=== PATIENT | male | born 1940 | race Caucasian/White ===

== ENCOUNTER 2019-08-10 13:28 | Emergency (ER) | payer MEDICARE, SELFPAY ==
[2019-08-10] VITALS (8 sets, daily range): BP systolic 119–146; BP diastolic 64–83; PULSE 75–99; RESP 16–19; TEMP 36.5; O2SAT 96–99; BMI 24.2
--- NOTE | 2019-08-10 13:43 | CT_ITS ---
WS: [id number] CT HEAD TECHNIQUE: Noncontrast CT of the head obtained from the skullbase to the vertex. CLINICAL INFORMATION: injury COMPARISON: None. DLP: 735.[address] scans at [facility] use at least one of these dose optimization techniques: automat ed exposure control; mA and/or kV adjustment per patient size (includes targeted exams where dose is matched to clinical indication); or iterative reconstruction. FINDINGS: No evidence of intracranial hemorrhage or mass effect. Ventricular system and basal cisterns are [place] nt. Moderate small vessel changes with moderate parenchymal volume loss. No extra-axial fluid collect ions. No evidence of mass or mass effect. Normal gaytan-white differentiation. Paranasal sinuses and mastoid air cells are well aerated. .Normal visualized soft tissues. Notified Cody Graves MD at 08/10/2019 3:[address]/CT head wo con* [id number] IMPRESSION: 1. No evidence of intracranial hemorrhage or mass effect. 2. Mild small vessel changes. Moderate parenchymal volume loss. 3. No acute intracranial findings.
--- NOTE | 2019-08-10 13:43 | CT_ITS ---
WS: [id number] CT CERVICAL TRAUMA TECHNIQUE: Noncontrast CT of the cervical spine with coronal and sagittal reformatted images. CLINICAL INFORMATION: fall COMPARISON: None. DLP: 504.[address] scans at [facility] use at least one of these dose optimization techniques: automat ed exposure control; mA and/or kV adjustment per patient size (includes targeted exams where dose is matched to clinical indication); or iterative reconstruction. FINDINGS: Moderate spondylitic changes. Bony fusion at C5-6 anterior hypertrophic changes. Prominent anterior h ypertrophic changes at C6-7. Straightening of the normal cervical lordosis. Normal craniocervical junction. Normal C1-C2 articulat ion. Dens is normal in appearance. Normal occipital condyles. No high-grade spinal canal narrowing. N ormal C1 ring. No evidence of acute fracture or dislocation. Normal prevertebral soft tissues. Mastoids air cells are well aerated. CT/CT cervical spin wo con* [id number] IMPRESSION: No evidence of acute fracture or dislocation.
--- NOTE | 2019-08-10 13:43 | XR_ITS ---
WS: [id number] CHEST XRAY TECHNIQUE: Portable chest. CLINICAL INFORMATION: injury COMPARISON: July 26, 2018 FINDINGS: Heart: Normal cardiac silhouette. Lungs: Lungs are clear. No consolidation or pleural effusion. Chronic emphysematous changes. Bones: Normal visualized bony structures. XR/XR chest 1V portable [id number] IMPRESSION: No acute chest findings
--- NOTE | 2019-08-10 13:44 | ECG_ITS ---
Measurements Intervals [place] Rate: 82 P: 44 OK: 161 QRS: -29 QRSD: 99 T: 67 QT: 368 QTc: 431 SINUS RHYTHM BORDERLINE LEFT AXIS DEVIATION [QRS AXIS < -20] Compared to ECG 07/26/2018 18:13:10 Sinus bradycardia no longer present Electronically Signed On 08-11-2019 6:43:32 CDT by Octaviano Sheffield M.D. [email or web address]
--- NOTE | 2019-08-10 13:44 | ED_ITS ---
HPI - Fall General: Chief Complaint: Fall Stated Complaint: fall, does not remember fall, sent by dr florian Time Seen by Provider: 08/10/19 13:40 Source: patient Mode of arrival: ambulatory Limitations: no limitations History of Present Illness: HPI Narrative: 79-year-old male who states that he fell this morning but does not remember exactly what happened and does remember falling. He states he woke up on the ground has had some pain in his head and neck since the event. He states that he is has some soreness all over. He states he has no idea what happens but he is had no chest pain since the event. He states he had no lightheadedness. Patient sent over here by his PCP. complaint: fall Associated symptoms-after fall: Reports headache(s); Denies abdominal pain, chest pain or neck pain Review of Systems Const: Denies: fever, chills, body aches or change in appetite Eyes: Denies: blurry vision or eye discomfort ENMT: Denies: throat pain or dental pain Card: Denies: chest pain Resp: Denies: shortness of breath GI: Denies: abdominal pain, nausea, vomiting or diarrhea : Denies: painful urination Musc: Denies: neck pain or back pain Skin/Breast: Denies: rash Neuro: Reports: headache Psych: Denies: depression Cipriano/Lymph: Denies: easy bruising All/Imm: Denies: hives PFSH ED PFSH: Social History Smoking and tobacco status: never smoked Physical Exam Const: COMMON NORMALS: no apparent distress, oriented x3 and healthy appearing HENMT: COMMON NORMALS: normocephalic and head/scalp atraumatic HEAD & SCALP: normocephalic and atraumatic Eye: COMMON NORMALS: PERRL and EOMs intact bilaterally PUPIL: Yes PERRL Neck/C-Spine: COMMON NORMALS: full ROM and supple Chest: COMMONS NORMALS: inspection of chest normal and palpation of chest normal Resp: COMMON NORMALS: normal respiratory effort, no retractions, no use of accessory muscles and clear to auscultation bilaterally AUSCULTATION: clear to auscultation bilaterally Cardio: COMMON NORMALS: regular rate, regular rhythm and no murmurs RATE: regular rate RHYTHM: regular rhythm GI: COMMON NORMALS: normal to inspection, nondistended, normoactive bowel sounds, soft to palpation, non-tender and no masses PALPATION: Yes soft Extremity: COMMON NORMALS: normal to inspection and full ROM Neuro: COMMON NORMALS: oriented x3, moves all extremities and no focal motor deficits Psych: COMMON NORMALS: mental status grossly normal, thought process normal and cooperative THOUGHT PROCESS: normal thought process Skin: COMMON NORMALS: no rashes or lesions noted and no wounds GENERAL SKIN EXAM: no rashes or lesions noted Course Vital Signs: Vital signs: Vital Signs Temperature 97.7 F 08/10/19 13:43 Pulse Rate 87 08/10/19 17:30 Respiratory Rate 18 08/10/19 17:30 Blood Pressure 134/71 08/10/19 17:30 Pulse Oximetry 99 08/10/19 17:30 MDM - Fall MDM Narrative: Medical decision making narrative: Patient presents here with fall. Patient here has no signs of injuries and CT head and x-ray are negative. Patient does have hyperglycemia that is improved here after insulin. Patient is requesting discharge I feel he is stable for discharge. Patient's vital signs here been normal. He is stable for discharge and is to follow-up with his primary care doctor and 2 to 4 days and return if worsening. Lab Data: Labs: Lab Results 08/10/19 08/10/19 08/10/19 Range/Units 15:00 15:25 15:25 WBC 5.8 (4.0-10.0) 10^3/ uL RBC 4.29 (4.1-5.3) 10^6/u L Hgb 13.6 (11.7-16.6) g/dL Hct 40.3 L (42.0-52.0) % MCV 93.9 (80-94) fL MCH 31.7 (28.0-34.0) pg MCHC 33.7 (30.0-36.0) g/dL RDW 12.5 (12.1-15.1) % Plt Count 201 (130-400) 10^3/c mm MPV 11.2 H (7.4-10.4) fL Neut % (Auto) 64.3 % Lymph % (Auto) 27.1 % Coffee % (Auto) 5.7 % Eos % (Auto) 1.9 % Baso % (Auto) 0.7 % Neut # (Auto) 3.7 (1.8-7.7) 10^3/u L Lymph # (Auto) 1.6 (0.8-4.8) 10^3/u L Coffee # (Auto) 0.3 (0.2-0.9) 10^3/u L Eos # (Auto) 0.1 (0.0-0.8) 10^3/u L Baso # (Auto) 0.0 (0.0-0.1) 10^3/u L Nucleated RBC % (a uto) 0 % Nucleated RBCs # 0.0 /100WBC Sodium 131 L (136-145) mmol/L Potassium 4.7 (3.5-5.1) mmol/L Chloride 93 L (98-107) mmol/L Carbon Dioxide 21 L (22-29) mmol/L Anion Gap 21.7 H (5-19) BUN 21 (8-23) mg/dL Creatinine 1.2 (0.7-1.2) mg/dL Glucose 629 H* (65-115) mg/dL Calculated Osmolal ity 298 H (285-295) mOsm/k g Calcium 9.4 (8.5-10.5) mg/dL Total Bilirubin 0.3 (0.15-1.2) mg/dL AST 17 (0-40) U/L ALT 18 (0-41) U/L Alkaline Phosphata se 190 H (40-130) IU/L Total Protein 6.7 (6.6-8.7) g/dL Albumin 3.8 (3.5-5.2) g/dL Globulin 2.9 (1.3-4.6) g/dL Urine Color Yellow (Yellow) Urine Appearance Clear (CLEAR) Urine pH 5 (5-7) Ur Specific Gravit y 1.010 (1.005-1.030) Urine Protein Neg (Negative) Urine Glucose (UA) 4+ H (Normal) Urine Ketones 2+ H (Negative) Urine Blood Neg (Negative) Urine Nitrate Negative (Negative) Urine Bilirubin Neg (NEGATIVE) Urine Urobilinogen Norm (Negative) mg/dL Ur Leukocyte Marilin ase Negative (Negative) Imaging Data^: CT Head: Radiologist's impression: [address] [address] [address] Scan Report Signed Patient: BrijeshCastro ng Unit #: [id number] : 1940 Age/Sex: 79 / M ADM Date: 08/10/19 Loc: ER Room/Bed: Attending Dr: Ordering Provider/Ordering MD: Cody Graves MD Date of Service: 08/10/19 Procedure(s): CT head wo con* [id number] Accession Number(s): [id number] Report Number: [id number] WS: [id number] CT HEAD TECHNIQUE: Noncontrast CT of the head obtained from the skullbase to the vertex. CLINICAL INFORMATION: injury COMPARISON: None. DLP: 735.[address] scans at [facility] use at least one of these dose optimization techniques: automated exposure control; mA and/or kV adjustment per patient size (includes targeted exams where dose is matched to clinical indication); or iterative reconstruction. FINDINGS: No evidence of intracranial hemorrhage or mass effect. Ventricular system and basal cisterns are patent. Moderate small vessel changes with moderate parenchymal volume loss. No extra-axial fluid collections. No evidence of mass or mass effect. Normal gaytan-white differentiation. Paranasal sinuses and mastoid air cells are well aerated. .Normal visualized soft tissues. Notified Cody Graves MD at 08/10/2019 3:[address]/CT head wo con* [id number] IMPRESSION: 1. No evidence of intracranial hemorrhage or mass effect. 2. Mild small vessel changes. Moderate parenchymal volume loss. 3. No acute intracranial findings. CXR: Radiologist's impression: [address] [address] XRay Report Signed Patient: Castro Coley Unit #: [id number] : 1940 Age/Sex: 79 / M ADM Date: 08/10/19 Loc: ER Room/Bed: Attending Dr: Ordering Provider/Ordering MD: Cody Graves MD Date of Service: 08/10/19 Procedure(s): XR chest 1V portable [id number] Accession Number(s): [id number] Report Number: [id number] WS: [id number] CHEST XRAY TECHNIQUE: Portable chest. CLINICAL INFORMATION: injury COMPARISON: July 26, 2018 FINDINGS: Heart: Normal cardiac silhouette. Lungs: Lungs are clear. No consolidation or pleural effusion. Chronic emphysematous changes. Bones: Normal visualized bony structures. ct c spine: Radiologist's impression: [facility] [address] [place] [address] CT Scan Report Signed Patient: Castro Coley Unit #: [id number] : 1940 Age/Sex: 79 / M ADM Date: 08/10/19 Loc: ER Room/Bed: Attending Dr: Ordering Provider/Ordering MD: Cody Graves MD Date of Service: 08/10/19 Procedure(s): CT cervical spin wo con* [id number] Accession Number(s): [id number] Report Number: [id number] WS: [id number] CT CERVICAL TRAUMA TECHNIQUE: Noncontrast CT of the cervical spine with coronal and sagittal reformatted images. CLINICAL INFORMATION: fall COMPARISON: None. DLP: 504.[address] scans at [facility] use at least one of these dose optimization techniques: automated exposure control; mA and/or kV adjustment per patient size (includes targeted exams where dose is matched to clinical indication); or iterative reconstruction. FINDINGS: Moderate spondylitic changes. Bony fusion at C5-6 anterior hypertrophic changes. Prominent anterior hypertrophic changes at C6-7. Straightening of the normal cervical lordosis. Normal craniocervical junction. Normal C1-C2 articulation. Dens is normal in appearance. Normal occipital condyles. No high- grade spinal canal narrowing. Normal C1 ring. No evidence of acute fracture or dislocation. Normal prevertebral soft tissues. Mastoids air cells are well aerated. CT/CT cervical spin wo con* [id number] IMPRESSION: No evidence of acute fracture or dislocation. EKG Data^: EKG 1: Attestation: I personally reviewed and interpreted this EKG as follows: EKG interpretation date: 08/10/19 EKG interpretation time: 14:55 Interpretation: nsr hr [address] or t wave abnormalities qrs 99 qtc 407 Discharge Plan Discharge Patient Disposition: Home, Self-Care Clinical Impression: Fall, Hyperglycemia Condition: Stable Prescriptions: No Action cilostazol 100 mg tablet 100 mg PO BID RF: 0 tamsulosin 0.4 mg capsule 0.4 mg PO BEDTIME RF: 0 triamcinolone acetonide 0.1 % ointment See Rx Instructions .ROUTE .COMPLEX RF: 0 nystatin 100,000 unit/gram cream See Rx Instructions .ROUTE .COMPLEX RF: 0 Lantus Solostar U-100 Insulin 100 unit/mL (3 mL) Insulin Pen 40 unit SUBCUT BEDTIME RF: 0 Aspir-81 81 mg Tablet,Delayed Release (Dr/Ec) 81 mg PO DAILY RF: 0 Tylenol Extra Strength 500 mg Tablet 500 - 1,000 mg PO PRN RF: 0 Discharge Orders: Discharge Order (Routine); Ordered 08/10/19 Ordered By: Cody Graves Referrals: DARVIN ZHU FNP [Family Provider] - Nick Florian MD [Primary Care Provider] - 4-7 days Discharge Diet: Advance as tolerated Discharge Activity: Resume usual activity Patient Instructions: Fall Prevention (ED) Coding Level of Care Code ED 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
[2019-08-10] MEDS: sodium chloride 0.9% 1,000 ML 999 ML IV ×2 (15:38→17:23)
[2019-08-10 15:47] LABS: Basophils % 0.7 %; Eosinophils # 0.1 10^3/uL (0.0-0.8); Eosinophils % 1.9 %; Hematocrit 40.3 % (42.0-52.0); Hemoglobin 13.6 g/dL (11.7-16.6); Lymphocytes # 1.6 10^3/uL (0.8-4.8); Lymphocytes % 27.1 %; Mean Corpuscular HGB Conc 33.7 g/dL (30.0-36.0); Mean Corpuscular Hemoglobin 31.7 pg (28.0-34.0); Mean Corpuscular Volume 93.9 fL (80-94); Mean Platelet Volume 11.2 fL (7.4-10.4); Monocytes # 0.3 10^3/uL (0.2-0.9); Monocytes % 5.7 %; Neutrophils # 3.7 10^3/uL (1.8-7.7); Neutrophils % 64.3 %; Nucleated Red Blood Cells % 0 %; Platelet Count 201 10^3/cmm (130-400); Red Blood Count 4.29 10^6/uL (4.1-5.3); Red Cell Distribution Width 12.5 % (12.1-15.1); White Blood Count 5.8 10^3/uL (4.0-10.0)
[2019-08-10 15:48] LABS: Add Urine Microscopic? NO
[2019-08-10 16:15] LABS: Bilirubin Urine Neg (NEGATIVE); Blood Urine Neg (Negative); Glucose Urine UA 4+ (Normal); Ketones Urine 2+ (Negative); Leukocyte Esterase Urine Negative (Negative); Nitrate Urine Negative (Negative); Protein Urine Neg (Negative); Urine Appearance Clear (CLEAR); Urine Color Yellow (Yellow); Urobilinogen Urine Norm (Negative); pH Urine 5 (5-7)
[2019-08-10 16:38] LABS: Alanine Aminotransferase 18 U/L (0-41); Albumin Level 3.8 g/dL (3.5-5.2); Alkaline Phosphatase 190 IU/L (40-130); Anion Gap 21.7 (5-19); Aspartate Amino Transferase 17 U/L (0-40); Blood Urea Nitrogen 21 mg/dL (8-23); Calcium 9.4 mg/dL (8.5-10.5); Carbon Dioxide 21 mmol/L (22-29); Chloride 93 mmol/L (98-107); Creatinine Clr Calc Pharmacy 47.7572; Globulin 2.9 g/dL (1.3-4.6); Osmolality Calculated 298 mOsm/kg (285-295); Potassium 4.7 mmol/L (3.5-5.1); Sodium 131 mmol/L (136-145); Total Bilirubin 0.3 mg/dL (0.15-1.2); Total Protein 6.7 g/dL (6.6-8.7)
[2019-08-10 16:48] LABS: Glucose 629 mg/dL (65-115)
[2019-08-10] MEDS: insulin regular-human 100 units/1 mL 10 UNIT IVP (17:24)
[2019-08-10 18:07] LABS: Glucose Point of Care 384 mg/dL (70-110)
== END 2019-08-10 18:27 | disposition home or self-care (01) ==
PROVIDERS: Emergency Provider Emergency Medicine; Family Provider Nurse Practitioner Family; PCP Family Medicine
DX: E11.65 Type 2 diabetes mellitus with hyperglycemia (principal); Z79.4 Long term (current) use of insulin; Z79.82 Long term (current) use of aspirin
CPT/HCPCS: 12345; 36416; 70450; 71045; 72125; 80053; 81003; 82962; 85025; 93005; 96360; 96361; 96374; 96375; 99283; 99284; J1815; J7030

== ENCOUNTER 2019-08-24 17:04 | Outpatient (CLI) | payer MEDICARE, SELFPAY ==
[2019-08-24 18:14] LABS: Add Urine Microscopic? NO
[2019-08-24 19:59] LABS: Bilirubin Urine Neg (NEGATIVE); Blood Urine Neg (Negative); Glucose Urine UA 4+ (Normal); Ketones Urine 2+ (Negative); Leukocyte Esterase Urine Negative (Negative); Nitrate Urine Negative (Negative); Protein Urine Neg (Negative); Specific Gravity, Urine 1.015 (1.005-1.030); Urine Appearance Clear (CLEAR); Urine Color Yellow (Yellow); Urobilinogen Urine Norm (Negative); pH Urine 5 (5-7)
== END 2019-08-24 17:05 | disposition home or self-care (01) ==
LOC: LAB 17:05
PROVIDERS: PCP Family Medicine; Visit Provider Family Medicine
DX: N39.0 Urinary tract infection, site not specified (principal)
CPT/HCPCS: 81003

== ENCOUNTER 2019-08-25 10:48 | Emergency (ER) | payer MEDICARE, SELFPAY ==
[2019-08-25 10:54] VITALS: BMI 24.2
[2019-08-25 10:58] VITALS: BP 147/82; PULSE 77; RESP 18; TEMP 36.6; O2SAT 100
--- NOTE | 2019-08-25 11:14 | XR_ITS ---
WS: [id number] XR chest 1V portable [id number] REASON FOR EXAM: dyspnea/cough FINDINGS: The heart and mediastinal interfaces are normal. There is no pneumonia, pulmonary edema:, Pleural effusion, or mass effect. The hilum and apices are normal. The chest is similar to August 10, 2019. XR/XR chest 1V portable [id number] IMPRESSION: Negative chest
--- NOTE | 2019-08-25 11:16 | W.ED.SOB ---
HPI - SOB/Dyspnea General: Chief Complaint: Shortness of Breath/Dyspnea Stated Complaint: WEAKNESS, SOB Time Seen by Provider: 08/25/19 10:55 History of Present Illness: HPI Narrative: 79-year-old male comes into the emergency room from home he lives at home alone. He came by private vehicle. His only complaint is shortness of breath. He is extremely hard of hearing is difficult to get a history from him. States he is had a shortness of breath and generally felt weak for the last 1 to 2 weeks he is able to get up and get around but requires use of a walker and is very limited mobility he did fall at home and he is a cut on the right parietal area anteriorly he states happened about 2 days ago there is no loss of consciousness with it he denies any productive cough or fever or any cough at all with his shortness of breath. Denies any abdominal pain UTI symptoms no diarrhea but he does states he has been constipated. He also states he has been very thirsty lately. He has not really noticed any exacerbating or relieving factors to his shortness of breath. He also fell about a week ago and fractured his left ankle and he has a cam walker on. MD elicited complaint: shortness of breath Pertinent past history: COPD Onset (ago): week(s) (1 to 2 weeks) Timing: intermittent Severity: moderate Exacerbating factors: nothing Relieving factors: nothing Known history of: COPD Associated symptoms: Reports myalgias, polydipsia and vomiting; Deny abdominal pain, chest congestion, chest pain, cough, diaphoresis, dizziness, extremity pain, fever(s), hemoptysis, lightheadedness, nausea, orthopnea, palpitations or syncope Treatment prior to arrival: none Review of Systems Const: Denies: fever or diaphoresis ENMT: Reports: Change in hearing ( decreased hearing); Denies: throat pain, ear pain, nasal discharge or nasal congestion Card: Denies: chest pain, palpitations, lightheadedness, syncope or shortness of breath when lying down Resp: Denies: coughing up blood or chest congestion GI: Reports: vomiting; Denies: abdominal pain or nausea : Denies: flank pain, painful urination, urinary frequency or urinary urgency Musc: Denies: extremity pain Skin/Breast: Denies: rash or itching Neuro: Denies: dizziness Endo: Reports: excessive thirst PFSH ED PFSH: Social History Smoking and tobacco status: former smoker Physical Exam Const: COMMON NORMALS: no apparent distress GENERAL APPEARANCE: cooperative and comfortable ORIENTATION/CONSCIOUSNESS: Yes awake, Yes oriented to person, Yes oriented to place and Yes oriented to time HENMT: COMMON NORMALS: normocephalic, head/scalp atraumatic, hearing grossly normal bilaterally, external ears normal, EAC's normal, TM's normal bilaterally, nasal mucous membranes and turbinates normal, moist oral mucous membranes and oropharynx normal HEAD & SCALP: normocephalic and atraumatic NOSE: nasal mucous membranes and turbinates normal EXTERNAL EAR: Yes external ears normal EXTERNAL AUDITORY CANAL: EAC's normal TYMPANIC MEMBRANE: TM's normal bilaterally Eye: COMMON NORMALS: PERRL, EOMs intact bilaterally, conjunctivae normal and no scleral icterus CONJUNCTIVA: Yes conjunctivae normal PUPIL: Yes PERRL Neck/C-Spine: COMMON NORMALS: full ROM, no lymphadenopathy, supple and no JVD Lymph: LYMPHATIC: no lymphadenopathy noted and no lymphedema noted Resp: COMMON NORMALS: normal respiratory effort, no retractions, no use of accessory muscles and clear to auscultation bilaterally AUSCULTATION: clear to auscultation bilaterally Cardio: COMMON NORMALS: no JVD, regular rate, regular rhythm and no murmurs RATE: regular rate RHYTHM: regular rhythm GI: COMMON NORMALS: soft to palpation and no hepatosplenomegaly AUSCULTATION: Yes normoactive bowel sounds PALPATION: Yes soft, No tender, No guarding and Yes no hepatosplenomegaly Extremity: COMMON NORMALS: normal to inspection, normal capillary refill, no clubbing, cyanosis or edema, no calf tenderness and no pedal edema Neuro: SENSORIUM/ORIENTATION: Yes oriented to person, Yes oriented to place and Yes oriented to time Skin: COMMON NORMALS: no rashes or lesions noted NARRATIVE SKIN EXAM: Abrasion of the left posterior shoulder, butterflied superficial laceration right parietal area GENERAL SKIN EXAM: no rashes or lesions noted Course Vital Signs: Vital signs: Vital Signs Temperature 97.8 F 08/25/19 10:58 Pulse Rate 87 08/25/19 15:22 Respiratory Rate 16 08/25/19 15:22 Blood Pressure 147/82 08/25/19 10:58 Pulse Oximetry 96 05/07/20 15:22 MDM - SOB/Dyspnea MDM Narrative: Medical decision making narrative: Discharge home on inhaled corticosteroid and anticholinergic continue to use Proventil as a rescue follow-up with primary care doctor within the week to review efficacy of medications. Lab Data: Labs: Lab Results 08/25/19 08/25/19 08/25/19 Range/Units 11:30 11:46 11:46 WBC 9.0 (4.0-10.0) 10^3/ uL RBC 4.06 L (4.1-5.3) 10^6/u L Hgb 12.6 (11.7-16.6) g/dL Hct 38.6 L (42.0-52.0) % MCV 95.1 H (80-94) fL MCH 31.0 (28.0-34.0) pg MCHC 32.6 (30.0-36.0) g/dL RDW 13.0 (12.1-15.1) % Plt Count 247 (130-400) 10^3/c mm MPV 9.8 (7.4-10.4) fL Neut % (Auto) 84.8 % Lymph % (Auto) 6.9 % [place] % (Auto) 5.2 % Eos % (Auto) 0.8 % Baso % (Auto) 0.6 % Neut # (Auto) 7.6 (1.8-7.7) 10^3/u L Lymph # (Auto) 0.6 L (0.8-4.8) 10^3/u L [place] # (Auto) 0.5 (0.2-0.9) 10^3/u L Eos # (Auto) 0.1 (0.0-0.8) 10^3/u L Baso # (Auto) 0.1 (0.0-0.1) 10^3/u L Nucleated RBC % (a uto) 0 % Nucleated RBCs # 0.0 /100WBC Specimen Type Sample Site ABG pH (7.35-7.45) ABG pCO2 (35-45) mmHg ABG pO2 (80.0-100.0) mmH g ABG HCO3 (22-26) mmol/L ABG O2 Saturation ABG Base Excess (-2.0-2.0) mmol/ L Noble Test A-a O2 Gradient (5-10) mmHg Hematocrit (42-52) % Hgb O2 Saturation (95-100) % Carboxyhemoglobin (0.4-20.1) %THgb Methemoglobin (0.4-1.5) % Total Hemoglobin (14-18) g/dL Ionized Calcium (1.1-1.4) mmol/L O2 Delivery Device FiO2 % Specimen Drawn By Employee Relations Specialist ID Sodium 134 L (136-145) mmol/L Potassium 4.4 (3.5-5.1) mmol/L Chloride 96 L (98-107) mmol/L Carbon Dioxide 21 L (22-29) mmol/L Anion Gap 21.4 H (5-19) BUN 17 (8-23) mg/dL Creatinine 1.0 (0.7-1.2) mg/dL Glucose 586 H* (65-115) mg/dL POC Glucose (70-110) mg/dL Calculated Osmolal ity 301 H (285-295) mOsm/k g Calcium 9.3 (8.5-10.5) mg/dL Total Bilirubin 0.2 (0.15-1.2) mg/dL AST 10 (0-40) U/L ALT 8 (0-41) U/L Alkaline Phosphata se 122 (40-130) IU/L Total Protein 6.6 (6.6-8.7) g/dL Albumin 3.1 L (3.5-5.2) g/dL Globulin 3.5 (1.3-4.6) g/dL Urine Color Straw (Yellow) Urine Appearance Clear (CLEAR) Urine pH 5.0 (5-7) Ur Specific Gravit y 1.015 (1.005-1.030) Urine Protein Neg (Negative) Urine Glucose (UA) 4+ H (Normal) Urine Ketones 2+ H (Negative) Urine Blood Neg (Negative) Urine Nitrate Negative (Negative) Urine Bilirubin Neg (NEGATIVE) Urine Urobilinogen Norm (Negative) mg/dL Ur Leukocyte Marilin ase Negative (Negative) 08/25/19 08/25/19 Range/Units 12:18 13:33 WBC (4.0-10.0) 10^3/ uL RBC (4.1-5.3) 10^6/u L Hgb (11.7-16.6) g/dL Hct (42.0-52.0) % MCV (80-94) fL MCH (28.0-34.0) pg MCHC (30.0-36.0) g/dL RDW (12.1-15.1) % Plt Count (130-400) 10^3/c mm MPV (7.4-10.4) fL Neut % (Auto) % Lymph % (Auto) % [place] % (Auto) % Eos % (Auto) % Baso % (Auto) % Neut # (Auto) (1.8-7.7) 10^3/u L Lymph # (Auto) (0.8-4.8) 10^3/u L [place] # (Auto) (0.2-0.9) 10^3/u L Eos # (Auto) (0.0-0.8) 10^3/u L Baso # (Auto) (0.0-0.1) 10^3/u L Nucleated RBC % (a uto) % Nucleated RBCs # /100WBC Specimen Type Arterial Sample Site Radial, left ABG pH 7.39 (7.35-7.45) ABG pCO2 33.0 L (35-45) mmHg ABG pO2 82.7 (80.0-100.0) mmH g ABG HCO3 19.9 L (22-26) mmol/L ABG O2 Saturation 97.8 ABG Base Excess -4.2 L (-2.0-2.0) mmol/ L Noble Test Pos A-a O2 Gradient 25.2 H (5-10) mmHg Hematocrit 39.1 L (42-52) % Hgb O2 Saturation 95.9 (95-100) % Carboxyhemoglobin 1.0 (0.4-20.1) %THgb Methemoglobin 1.0 (0.4-1.5) % Total Hemoglobin 12.8 L (14-18) g/dL Ionized Calcium 1.2 (1.1-1.4) mmol/L O2 Delivery Device None FiO2 21.0 % Specimen Drawn By [employer] Employee Relations Specialist ID ed Sodium 135.0 (136-145) mmol/L Potassium 4.2 (3.5-5.1) mmol/L Chloride (98-107) mmol/L Carbon Dioxide (22-29) mmol/L Anion Gap (5-19) BUN (8-23) mg/dL Creatinine (0.7-1.2) mg/dL Glucose 487.0 H (65-115) mg/dL POC Glucose 310 (70-110) mg/dL Calculated Osmolal ity (285-295) mOsm/k g Calcium (8.5-10.5) mg/dL Total Bilirubin (0.15-1.2) mg/dL AST (0-40) U/L ALT (0-41) U/L Alkaline Phosphata se (40-130) IU/L Total Protein (6.6-8.7) g/dL Albumin (3.5-5.2) g/dL Globulin (1.3-4.6) g/dL Urine Color (Yellow) Urine Appearance (CLEAR) Urine pH (5-7) Ur Specific Gravit y (1.005-1.030) Urine Protein (Negative) Urine Glucose (UA) (Normal) Urine Ketones (Negative) Urine Blood (Negative) Urine Nitrate (Negative) Urine Bilirubin (NEGATIVE) Urine Urobilinogen (Negative) mg/dL Ur Leukocyte Marilin ase (Negative) Discharge Plan Discharge Patient Disposition: Home, Self-Care Clinical Impression: COPD (chronic obstructive pulmonary disease), Diabetes Condition: Stable Prescriptions: New Symbicort 80-4.5 mcg/actuation HFA aerosol inhaler 2 inh INHALATION BID Qty: 10.2 RF: 0 Proventil HFA 90 mcg/actuation HFA aerosol inhaler 2 inh INHALATION Q6H PRN (Reason: shortness of breath or wheezing) Qty: 18 RF: 0 No Action cilostazol 100 mg tablet 100 mg PO BID RF: 0 tamsulosin 0.4 mg capsule 0.4 mg PO BEDTIME RF: 0 triamcinolone acetonide 0.1 % ointment See Rx Instructions .ROUTE .COMPLEX RF: 0 nystatin 100,000 unit/gram cream See Rx Instructions .ROUTE .COMPLEX RF: 0 Lantus Solostar U-100 Insulin 100 unit/mL (3 mL) Insulin Pen 40 unit SUBCUT BEDTIME RF: 0 aspirin [Aspir-81] 81 mg Tablet,Delayed Release (Dr/Ec) 81 mg PO DAILY RF: 0 acetaminophen [Tylenol Extra Strength] 500 mg Tablet 500 - 1,000 mg PO PRN RF: 0 Discharge Orders: Discharge Order (Routine); Ordered 08/25/19 Ordered By: Rohith Walker Referrals: Nick Florian MD [Primary Care Provider] - Discharge Diet: Usual diet Discharge Activity: Resume usual activity Activity Restrictions/Additional Instructions: Follow up with your primary care doctor within the week. Discharge Date/Time: 08/25/19 15:23 Coding Level of Care Code ED Dobby Loom Fixer for Chg Fwd Exam Comprehensive
[2019-08-25] MEDS: tetanus-dipt-pertussis 0.5 mL SDV IM (11:25)
[2019-08-25 11:39] LABS: Add Urine Microscopic? NO
[2019-08-25 11:52] LABS: Bilirubin Urine Neg (NEGATIVE); Blood Urine Neg (Negative); Glucose Urine UA 4+ (Normal); Ketones Urine 2+ (Negative); Leukocyte Esterase Urine Negative (Negative); Nitrate Urine Negative (Negative); Protein Urine Neg (Negative); Specific Gravity, Urine 1.015 (1.005-1.030); Urine Appearance Clear (CLEAR); Urine Color Straw (Yellow); Urobilinogen Urine Norm (Negative)
[2019-08-25 11:56] LABS: Basophils # 0.1 10^3/uL (0.0-0.1); Basophils % 0.6 %; Eosinophils # 0.1 10^3/uL (0.0-0.8); Eosinophils % 0.8 %; Hematocrit 38.6 % (42.0-52.0); Hemoglobin 12.6 g/dL (11.7-16.6); Lymphocytes # 0.6 10^3/uL (0.8-4.8); Lymphocytes % 6.9 %; Mean Corpuscular HGB Conc 32.6 g/dL (30.0-36.0); Mean Corpuscular Volume 95.1 fL (80-94); Mean Platelet Volume 9.8 fL (7.4-10.4); Monocytes # 0.5 10^3/uL (0.2-0.9); Monocytes % 5.2 %; Neutrophils # 7.6 10^3/uL (1.8-7.7); Neutrophils % 84.8 %; Nucleated Red Blood Cells % 0 %; Platelet Count 247 10^3/cmm (130-400); Red Blood Count 4.06 10^6/uL (4.1-5.3)
[2019-08-25 12:10] LABS: Alanine Aminotransferase 8 U/L (0-41); Albumin Level 3.1 g/dL (3.5-5.2); Alkaline Phosphatase 122 IU/L (40-130); Anion Gap 21.4 (5-19); Aspartate Amino Transferase 10 U/L (0-40); Blood Urea Nitrogen 17 mg/dL (8-23); Calcium 9.3 mg/dL (8.5-10.5); Carbon Dioxide 21 mmol/L (22-29); Chloride 96 mmol/L (98-107); Creatinine Clr Calc Pharmacy 57.3087; Globulin 3.5 g/dL (1.3-4.6); Osmolality Calculated 301 mOsm/kg (285-295); Potassium 4.4 mmol/L (3.5-5.1); Sodium 134 mmol/L (136-145); Total Bilirubin 0.2 mg/dL (0.15-1.2); Total Protein 6.6 g/dL (6.6-8.7)
[2019-08-25 12:13] VITALS: PULSE 78; RESP 16; O2SAT 98
[2019-08-25 12:13] LABS: Glucose 586 mg/dL (65-115)
[2019-08-25 12:29] LABS: ABG PH Result 7.39 (7.35-7.45); Alveolar-Arterial Oxygen Gradi 25.2 mmHg (5-10); Arterial Blood Gas Hematocrit 39.1 % (42-52); Base Excess ABG -4.2 mmol/L (-2.0-2.0); Blood Gas Allen Test Pos; Blood Gas Sample Site Radial, left; Blood Gas Sample Type Arterial; HCO3 ABG 19.9 mmol/L (22-26); HGB O2 Sat 95.9 % (95-100); Ionized Calcium Level - ABG 1.2 mmol/L (1.1-1.4); Oxygen Saturation ABG 97.8; PO2 ABG 82.7 mmHg (80.0-100.0); Potassium Level - ABG 4.2 mmol/L (3.5-5.0); Total Hemoglobin 12.8 g/dL (14-18)
[2019-08-25] MEDS: insulin regular-human 100 units/1 mL 15 UNIT IVP (12:39)
--- NOTE | 2019-08-25 13:26 | CT_ITS ---
WS: [id number] CTA OF THE CHEST WITH PULMONARY EMBOLISM PROTOCOL TECHNIQUE: High-resolution contrast enhanced CTA of the chest with coronal and sagittal reformatted i mages with pulmonary embolism protocol. MIP images are also reviewed. CLINICAL INFORMATION: dyspnea COMPARISON: None. DLP: 558.[address] scans at [facility] use at least one of these dose optimization techniques: automat ed exposure control; mA and/or kV adjustment per patient size (includes targeted exams where dose is matched to clinical indication); or iterative reconstruction. FINDINGS: Proximal main pulmonary arteries are normal. Segmental pulmonary arteries are normal. Visualized subs egmental pulmonary arteries are normal. No evidence for pulmonary embolus. Moderate chronic emphysematous changes. No acute pulmonary infiltrates. Slight bibasilar atelectasis. A few calcified granulomas. No consolidation or pleural fluid. No axillary lymphadenopathy. No media stinal or hilar lymphadenopathy. Small esophageal hiatal hernia. Normal gallbladder. Adrenal glands are normal. Endplate Schmorl's nodes in the thoracic spine. Notified Rohith Walker DO at 08/25/2019 2:[address]/CT angio chest PE protcl [id number] IMPRESSION: 1. No evidence of pulmonary embolus. Moderate chronic emphysematous changes 2. No acute pulmonary infiltrates. 3. No mediastinal or hilar lymphadenopathy. 4. Normal caliber thoracic aorta. 5. Small esophageal hiatal hernia.
[2019-08-25] MEDS: iohexol 350 mg/mL 100 mL Btl IV (13:41)
[2019-08-25 14:41] LABS: Glucose Point of Care 310 mg/dL (70-110)
[2019-08-25 15:22] VITALS: PULSE 87; RESP 16; O2SAT 96
--- NOTE | 2019-08-25 15:22 | PC.NURSE ---
attempted to call pt's family multiple times with update on pt with no success
== END 2019-08-25 15:23 | disposition home or self-care (01) ==
PROVIDERS: Emergency Provider Family Medicine; PCP Family Medicine
DX: J44.9 Chronic obstructive pulmonary disease, unspecified (principal); E11.9 Type 2 diabetes mellitus without complications; Z79.4 Long term (current) use of insulin; Z79.82 Long term (current) use of aspirin; Z87.891 Personal history of nicotine dependence; Z23 Encounter for immunization; S40.212A Abrasion of left shoulder, initial encounter; S01.81XA Laceration without foreign body of other part of head, initial encounter; W19.XXXA Unspecified fall, initial encounter
CPT/HCPCS: 12345; 36415; 36416; 36600; 71045; 71275; 80051; 80053; 81003; 82810; 82962; 83986; 85025; 90471; 90715; 96374; 96375; 99281; 99284; J1815; Q9967

== ENCOUNTER 2019-08-29 15:58 | Inpatient (IN) | payer MEDICARE, SELFPAY ==
[2019-08-29 16:08] VITALS: BP 121/74; PULSE 94; RESP 16; TEMP 36.6; O2SAT 96; BMI 23.0
--- NOTE | 2019-08-29 16:14 | XR_ITS ---
WS: [id number] PORTABLE CHEST HISTORY: cough/congestion COMPARISON: 08/25/2019 Hyperexpanded lungs with granulomata. No pneumonia. Normal vasculature. No pleural effusion or pneumo thorax. Cardiac size: Normal. Mediastinum/Aorta: Normal mediastinum. Mild bilateral AC joint arthritis. RIGHT rotator cuff calcific tendinitis. XR/XR chest 1V portable [id number] IMPRESSION: Chronic emphysema with no acute findings.
--- NOTE | 2019-08-29 16:16 | USR_ITS ---
PROCEDURE INFORMATION: Exam: US Scrotum Exam date and time: 08/29/2019 4:30 PM Age: 79 years old Clinical indication: Scrotum pain; Prior surgery; Surgery date: 6+ months; Surgery type: Vas; Patient HX: Draining abcess; Additional info: Abscess TECHNIQUE: Imaging protocol: Real-time ultrasound of the scrotum and contents with color Doppler and image documentation. COMPARISON: No relevant prior studies available. FINDINGS: Right testicle: Normal. No mass. No torsion. Normal vascular flow. Left testicle: Normal. No mass. No torsion. Normal vascular flow. Epididymides: Enlarged hyperemic epididymis bilaterally consistent with epididymitis. Scrotum: . Small bilateral hydroceles. 14 mm thickening of the left scrotum consistent with cellulitis. 2.4 x 1.5 x 1.7 cm echogenic abnormality in the right scrotal wall suggesting possible abscess. Other findings: Normal testicular perfusion bilaterally with no torsion or intrinsic testicular mass. CT may be helpful to rule out Jessica's gangrene if clinically indicated. US/US scrotum [id number] IMPRESSION: 1. Enlarged hyperemic epididymis bilaterally consistent with epididymitis. 2. . Small bilateral hydroceles. 3. 14 mm thickening of the left scrotum consistent with cellulitis. 4. 2.4 x 1.5 x 1.7 cm echogenic abnormality in the right scrotal wall suggesting possible abscess. 5. Normal testicular perfusion bilaterally with no torsion or intrinsic testicular mass. 6. CT may be helpful to rule out Jessica's gangrene if clinically indicated.
--- NOTE | 2019-08-29 18:23 | ED_ITS ---
HPI - Skin/Abscess/Foreign Bdy General: Chief complaint: Skin/Abscess/Foreign Body Stated complaint: SCROTAL ABCESS Time Seen by Provider: 08/29/19 18:13 Source: patient Mode of arrival: ambulatory Limitations: no limitations History of Present Illness: HPI narrative: 79-year-old male who was seen by Dr. Quiroz as an office today and was concerned that he could have Jessica's gangrene and sent him here to be a direct admission to the hospital. Not doing direct admissions at this time due to coronavirus patient had to check in the ER. He has had an abscess to his scrotum for the last 3 days. He denies any fever. He states he had slight pain. He had an ultrasound done today. Associated symptoms: Deny chills, fever(s), nausea or vomiting Review of Systems Const: Denies: fever, chills, body aches or change in appetite Eyes: Denies: blurry vision or eye discomfort ENMT: Denies: throat pain or dental pain Card: Denies: chest pain Resp: Denies: shortness of breath GI: Denies: abdominal pain, nausea, vomiting or diarrhea : Denies: painful urination Musc: Denies: neck pain or back pain Skin/Breast: Denies: rash Neuro: Denies: headache Psych: Denies: depression Cipriano/Lymph: Denies: easy bruising All/Imm: Denies: hives PFSH ED PFSH: Medical History COPD (chronic obstructive pulmonary disease) Diabetes mellitus, type II Surgical History History of back surgery History of carpal tunnel release of both wrists Social History Smoking and tobacco status: former smoker Physical Exam Const: COMMON NORMALS: no apparent distress, oriented x3 and healthy appearing HENMT: COMMON NORMALS: normocephalic and head/scalp atraumatic HEAD & SCALP: normocephalic and atraumatic Eye: COMMON NORMALS: PERRL and EOMs intact bilaterally PUPIL: Yes PERRL Neck/C-Spine: COMMON NORMALS: full ROM and supple Chest: COMMONS NORMALS: inspection of chest normal and palpation of chest normal Resp: COMMON NORMALS: normal respiratory effort, no retractions, no use of accessory muscles and clear to auscultation bilaterally AUSCULTATION: clear to auscultation bilaterally Cardio: COMMON NORMALS: regular rate, regular rhythm and no murmurs RATE: regular rate RHYTHM: regular rhythm GI: COMMON NORMALS: normal to inspection, nondistended, normoactive bowel sounds, soft to palpation, non-tender and no masses PALPATION: Yes soft : OTHER: Abscess to the scrotum with foul smell possible Jessica's gangrene Extremity: COMMON NORMALS: normal to inspection and full ROM Neuro: COMMON NORMALS: oriented x3, moves all extremities and no focal motor deficits Psych: COMMON NORMALS: mental status grossly normal, thought process normal and cooperative THOUGHT PROCESS: normal thought process Skin: COMMON NORMALS: no rashes or lesions noted and no wounds GENERAL SKIN EXAM: no rashes or lesions noted Course Vital Signs: Vital signs: Vital Signs Temperature 97.9 F 08/29/19 16:08 Pulse Rate 94 08/29/19 16:08 Respiratory Rate 16 08/29/19 16:08 Blood Pressure 121/74 08/29/19 16:08 Pulse Oximetry 96 08/29/19 16:08 MDM - Skin/Abscess/Foreign Bdy MDM Narrative: Medical decision making narrative: Patient sent up here by Dr. Quiroz for testicular abscess with concern of Jessica's gangrene. Dr. Quiroz is already spoke to Dr. Richards. I spoke to Dr. Quiroz and will admit patient to Dr. Quiroz and Dr. Richards is consulted. Patient is stable down here with no signs of sepsis. Patient started on IV antibiotics. Lab Data: Labs: Lab Results 08/29/19 08/29/19 Range/Units 18:20 18:20 WBC 8.0 (4.0-10.0) 10^3/ uL RBC 4.02 L (4.1-5.3) 10^6/u L Hgb 12.8 (11.7-16.6) g/dL Hct 37.8 L (42.0-52.0) % MCV 94.0 (80-94) fL MCH 31.8 (28.0-34.0) pg MCHC 33.9 (30.0-36.0) g/dL RDW 12.7 (12.1-15.1) % Plt Count 267 (130-400) 10^3/c mm MPV 9.5 (7.4-10.4) fL Neut % (Auto) 78.8 % Lymph % (Auto) 13.8 % Stanley % (Auto) 5.2 % Eos % (Auto) 0.9 % Baso % (Auto) 0.2 % Neut # (Auto) 6.3 (1.8-7.7) 10^3/u L Lymph # (Auto) 1.1 (0.8-4.8) 10^3/u L Stanley # (Auto) 0.4 (0.2-0.9) 10^3/u L Eos # (Auto) 0.1 (0.0-0.8) 10^3/u L Baso # (Auto) 0.0 (0.0-0.1) 10^3/u L Nucleated RBC % (a uto) 0 % Nucleated RBCs # 0.0 /100WBC Sodium 137 (136-145) mmol/L Potassium 3.2 L (3.5-5.1) mmol/L Chloride 93 L (98-107) mmol/L Carbon Dioxide 29 (22-29) mmol/L Anion Gap 18.2 (5-19) BUN 19 (8-23) mg/dL Creatinine 0.9 (0.7-1.2) mg/dL Glucose 309 H (65-115) mg/dL Calculated Osmolal ity 292 (285-295) mOsm/k g Calcium 9.1 (8.5-10.5) mg/dL Total Bilirubin 0.2 (0.15-1.2) mg/dL AST 12 (0-40) U/L ALT 8 (0-41) U/L Alkaline Phosphata se 128 (40-130) IU/L Total Protein 6.5 L (6.6-8.7) g/dL Albumin 3.1 L (3.5-5.2) g/dL Globulin 3.4 (1.3-4.6) g/dL Discharge Plan Discharge Patient Disposition: Admitted As Inpatient Clinical Impression: Abscess of skin or subcutaneous tissue Qualifiers: Site of cutaneous abscess: other site Qualified Code(s): L02.818 - Cutaneous abscess of other sites Condition: Stable Referrals: Nick Florian MD [Primary Care Provider] - Coding Level of Care Code ED Tacking Machine Operator for Chg Fwd Exam Comprehensive
[2019-08-29 18:29] LABS: Basophils % 0.2 %; Eosinophils # 0.1 10^3/uL (0.0-0.8); Eosinophils % 0.9 %; Hematocrit 37.8 % (42.0-52.0); Hemoglobin 12.8 g/dL (11.7-16.6); Lymphocytes # 1.1 10^3/uL (0.8-4.8); Lymphocytes % 13.8 %; Mean Corpuscular HGB Conc 33.9 g/dL (30.0-36.0); Mean Corpuscular Hemoglobin 31.8 pg (28.0-34.0); Mean Platelet Volume 9.5 fL (7.4-10.4); Monocytes # 0.4 10^3/uL (0.2-0.9); Monocytes % 5.2 %; Neutrophils # 6.3 10^3/uL (1.8-7.7); Neutrophils % 78.8 %; Nucleated Red Blood Cells % 0 %; Platelet Count 267 10^3/cmm (130-400); Red Blood Count 4.02 10^6/uL (4.1-5.3); Red Cell Distribution Width 12.7 % (12.1-15.1)
[2019-08-29] MEDS: piperacillin-tazobactam 3.375 GM in sodium chloride 0.9% (plus) 50 ML IV (18:42)
[2019-08-29 18:56] LABS: Alanine Aminotransferase 8 U/L (0-41); Albumin Level 3.1 g/dL (3.5-5.2); Alkaline Phosphatase 128 IU/L (40-130); Anion Gap 18.2 (5-19); Aspartate Amino Transferase 12 U/L (0-40); Blood Urea Nitrogen 19 mg/dL (8-23); Calcium 9.1 mg/dL (8.5-10.5); Carbon Dioxide 29 mmol/L (22-29); Chloride 93 mmol/L (98-107); Globulin 3.4 g/dL (1.3-4.6); Glucose 309 mg/dL (65-115); Osmolality Calculated 292 mOsm/kg (285-295); Potassium 3.2 mmol/L (3.5-5.1); Sodium 137 mmol/L (136-145); Total Bilirubin 0.2 mg/dL (0.15-1.2); Total Protein 6.5 g/dL (6.6-8.7)
[2019-08-29] MEDS: vancomycin 1,000 MG in sodium chloride 0.9% 250 ML 250 MG IV (20:26)
[2019-08-29 20:28] VITALS: BP 174/80; PULSE 65; RESP 16; O2SAT 98
[2019-08-29 20:30] VITALS: BP 145/76; PULSE 68; RESP 20; TEMP 36.5; O2SAT 97
[2019-08-29 20:52] VITALS: RESP 20
[2019-08-29] MEDS: HYDROmorphone 1 mg/mL INJ 1 mL IVP (20:52)
[2019-08-29 21:20] LABS: Protein Urine Neg (Negative); Specific Gravity, Urine 1.015 (1.005-1.030); Urine Appearance SL Hazy (CLEAR); Urine Color Straw (Yellow); pH Urine 6 (5-7)
[2019-08-29 21:21] LABS: Add Urine Microscopic? YES; Bilirubin Urine Neg (NEGATIVE); Blood Urine Neg (Negative); Glucose Urine UA 4+ (Normal); Ketones Urine 1+ (Negative); Leukocyte Esterase Urine Trace (Negative); Nitrate Urine Negative (Negative); Urobilinogen Urine Norm (Negative)
[2019-08-29 21:23] LABS: Add Urine Culture? Yes; Bacteria Urine 3+; RBC Urine 0-4 /hpf (0-2)
[2019-08-30] VITALS (24 sets, daily range): BP systolic 108–190; BP diastolic 63–135; PULSE 52–547; RESP 12–113; TEMP 35.8–37.3; O2SAT 93–100
[2019-08-30] MEDS: piperacillin-tazobactam 3.375 GM in sodium chloride 0.9% (plus) 50 ML IV ×4 (00:07→21:11)
[2019-08-30 05:21] LABS: Basophils % 0.5 %; Eosinophils # 0.1 10^3/uL (0.0-0.8); Eosinophils % 1.8 %; Hematocrit 34.5 % (42.0-52.0); Hemoglobin 11.4 g/dL (11.7-16.6); Lymphocytes # 1.2 10^3/uL (0.8-4.8); Lymphocytes % 20.2 %; Mean Corpuscular Hemoglobin 31.1 pg (28.0-34.0); Mean Corpuscular Volume 94.3 fL (80-94); Mean Platelet Volume 9.7 fL (7.4-10.4); Monocytes # 0.5 10^3/uL (0.2-0.9); Monocytes % 7.5 %; Neutrophils # 4.2 10^3/uL (1.8-7.7); Neutrophils % 68.7 %; Nucleated Red Blood Cells % 0 %; Platelet Count 253 10^3/cmm (130-400); Red Blood Count 3.66 10^6/uL (4.1-5.3); Red Cell Distribution Width 12.6 % (12.1-15.1); White Blood Count 6.1 10^3/uL (4.0-10.0)
[2019-08-30 05:43] LABS: Alanine Aminotransferase 8 U/L (0-41); Albumin Level 2.7 g/dL (3.5-5.2); Alkaline Phosphatase 88 IU/L (40-130); Anion Gap 11.9 (5-19); Aspartate Amino Transferase 11 U/L (0-40); Blood Urea Nitrogen 13 mg/dL (8-23); Calcium 9.1 mg/dL (8.5-10.5); Carbon Dioxide 32 mmol/L (22-29); Chloride 98 mmol/L (98-107); Globulin 3.3 g/dL (1.3-4.6); Glucose 115 mg/dL (65-115); Osmolality Calculated 285 mOsm/kg (285-295); Sodium 139 mmol/L (136-145); Total Bilirubin 0.2 mg/dL (0.15-1.2)
[2019-08-30 05:46] LABS: Potassium 2.9 mmol/L (3.5-5.1)
--- NOTE | 2019-08-30 06:43 | P.ANESASSM_ITS ---
Pre-Anesthetic Assessment Pre-Anesthetic Assessment: Height/Weight: Height 1.7 m Weight 66.678 kg Temp Pulse Resp BP Pulse Ox 97.9 F 60 20 H 168/77 93 08/30/19 05:54 08/30/19 05:54 08/30/19 05:54 08/30/19 05:54 08/30/19 05:54 Preop Diagnosis: abscess Proposed Procedure: Operation Date: 08/30/19 07:10 Proposed Procedures p Incision And Drainage of scrotal abcess(Not Applicable) - Dru Quiroz MD Last intake: Intake Last Liquid Date 08/29/19 Last Liquid Time 12:00 Last Solid Date 08/29/19 Last Solid Time 09:00 Social: Social History: Tobacco (quit) and No alcohol Exam: Pre-Anes Outpt Exam: alert, oriented x 3, clear to auscultation bilaterally and regular rate & rhythm Airway: Submandibular: WNL Cervical ROM: WNL MP: 3 Dentition: False (upper and lower) History/ROS: No significant history except as noted Pulmonary: Pulmonary: COPD and GARCIA CV/HEM: CV/HEM: None reported : : None reported Hepatic: Hepatic: None reported GI: GI: None reported Metabolic: Metabolic: DM Musc/skel: Musc/skel: OA/DJD Neuropsych: Comments: hard of hearing Anesthetic Plan: ASA status: 3 Anesthesia: Anesthesia Evaluation and General Risk of > 500 ml blood loss (7ml/kg in children): No PFSH Anesthesia PFSH: Medical History COPD (chronic obstructive pulmonary disease) Diabetes mellitus, type II Surgical History History of back surgery History of carpal tunnel release of both wrists Social History Smoking and tobacco status: former smoker Data Anesthesia CBC & Chem 7: 08/30/19 04:55 08/30/19 04:55 Other Labs: Laboratory Results - last 48 hr 08/29/19 08/29/19 08/29/19 18:20 18:20 18:20 WBC 8.0 RBC 4.02 L Hgb 12.8 Hct 37.8 L MCV 94.0 MCH 31.8 MCHC 33.9 RDW 12.7 Plt Count 267 MPV 9.5 Neut % (Auto) 78.8 Lymph % (Auto) 13.8 Pratt % (Auto) 5.2 Eos % (Auto) 0.9 Baso % (Auto) 0.2 Neut # (Auto) 6.3 Lymph # (Auto) 1.1 Pratt # (Auto) 0.4 Eos # (Auto) 0.1 Baso # (Auto) 0.0 Nucleated RBC % (auto) 0 Nucleated RBCs # 0.0 Sodium 137 Potassium 3.2 L Chloride 93 L Carbon Dioxide 29 Anion Gap 18.2 BUN 19 Creatinine 0.9 Glucose 309 H Calculated Osmolality 292 Lactate 1.0 Calcium 9.1 Total Bilirubin 0.2 AST 12 ALT 8 Alkaline Phosphatase 128 Total Protein 6.5 L Albumin 3.1 L Globulin 3.4 Urine Color Urine Appearance Urine pH Ur Specific [place] Urine Protein Urine Glucose (UA) Urine Ketones Urine Blood Urine Nitrate Urine Bilirubin Urine Urobilinogen Ur Leukocyte Esterase Urine RBC Urine WBC Ur Squamous Epith Cells Urine Bacteria Urine Yeast 08/29/19 08/30/19 08/30/19 20:23 04:55 04:55 WBC 6.1 RBC 3.66 L Hgb 11.4 L Hct 34.5 L MCV 94.3 H MCH 31.1 MCHC 33.0 RDW 12.6 Plt Count 253 MPV 9.7 Neut % (Auto) 68.7 Lymph % (Auto) 20.2 Pratt % (Auto) 7.5 Eos % (Auto) 1.8 Baso % (Auto) 0.5 Neut # (Auto) 4.2 Lymph # (Auto) 1.2 Pratt # (Auto) 0.5 Eos # (Auto) 0.1 Baso # (Auto) 0.0 Nucleated RBC % (auto) 0 Nucleated RBCs # 0.0 Sodium 139 Potassium 2.9 L Chloride 98 Carbon Dioxide 32 H Anion Gap 11.9 BUN 13 Creatinine 0.9 Glucose 115 Calculated Osmolality 285 Lactate Calcium 9.1 Total Bilirubin 0.2 AST 11 ALT 8 Alkaline Phosphatase 88 Total Protein 6.0 L Albumin 2.7 L Globulin 3.3 Urine Color Straw Urine Appearance Sl hazy Urine pH 6 Ur Specific [place] 1.015 Urine Protein Neg Urine Glucose (UA) 4+ H Urine Ketones 1+ H Urine Blood Neg Urine Nitrate Negative Urine Bilirubin Neg Urine Urobilinogen Norm Ur Leukocyte Esterase Trace H Urine RBC 0-4 H Urine WBC 5-10 H Ur Squamous Epith Cells 5-10 H Urine Bacteria 3+ H Urine Yeast 2+ H Micro: Microbiology 08/29/19 18:33 Blood Culture - Preliminary Blood SPECIMEN COLLECTED 08/29/19 18:20 Blood Culture - Preliminary Blood SPECIMEN COLLECTED Cardiac Studies: No Data to Display
--- NOTE | 2019-08-30 06:57 | P.HP_ITS ---
Same Day Surgery H&P Indication for Procedure/HPI DATE OF PROCEDURE: August 30, 2019 CHIEF COMPLAINT/INDICATIONFOR SURGICAL PROCEDURE: scrotal abscess PREOP DIAGNOSIS: abscess PLANNED PROCEDRUE: Operation Date: 08/30/19 07:10 Proposed Procedures p Incision And Drainage of scrotal abcess(Not Applicable) - Dru Quiroz MD Medications/Allergies* Home Medications Medication Instructions Recorded Confirmed Type acetaminophen [Tylenol Extra 500 - 1,000 mg PO PRN 08/10/19 08/29/19 History Strength] aspirin [Aspir-81] 81 mg PO DAILY 08/10/19 08/29/19 History cilostazol 100 mg PO BID 08/10/19 08/29/19 History nystatin See Rx Instructions .ROUTE .COMPLEX 08/10/19 08/29/19 History tamsulosin 0.4 mg PO BEDTIME 08/10/19 08/29/19 History triamcinolone acetonide See Rx Instructions .ROUTE .COMPLEX 08/10/19 08/29/19 History cetirizine 10 mg tablet 10 mg PO DAILY tab 08/29/19 08/29/19 History erythromycin See Rx Instructions .ROUTE .COMPLEX 08/29/19 08/29/19 History insulin glargine [Basaglar KwikPen See Rx Instructions .ROUTE .COMPLEX 08/29/19 08/29/19 History U-100 Insulin] mupirocin 1 applic TOPICAL TID 08/29/19 08/29/19 History naproxen sodium 550 mg tablet 550 mg PO BID 08/29/19 08/29/19 History sulfamethoxazole-trimethoprim 1 tab PO BID 08/29/19 08/29/19 History Allergies/Adverse Reactions Allergy/AdvReac Type Severity Reaction Status Date / Time ibuprofen Allergy Mild Nausea Verified 08/29/19 15:33 tetanus toxoid, adsorbed Allergy Unknown Verified 08/29/19 15:33 Pertinent History/Comorbid Conditions* Medical History (Updated 08/29/19 @ 18:43 by Cody Graves MD) COPD (chronic obstructive pulmonary disease) Diabetes mellitus, type II Surgical History (Updated 08/29/19 @ 17:18 by Dru Quiroz MD) History of back surgery History of carpal tunnel release of both wrists Social History Smoking and tobacco status: former smoker Pertinent Exam Findings alert, oriented x 3 and operative site marked Recommendations Surgery/Procedure today Coding Level of Care Code Acute Stress Test Technician for Chg Fwd
[2019-08-30] MEDS: sodium chloride 0.9% 1,000 ML 30 ML IV (07:05)
[2019-08-30] MEDS: fentaNYL 50 mcg/mL INJ 2mL IVP ×2 (08:25→08:30)
--- NOTE | 2019-08-30 08:37 | SUR.PHASEI ---
0837 BG 140
[2019-08-30] MEDS: hyDRALAzine 20 mg/mL INJ 1 mL 5 MG IVP ×2 (09:00→09:15)
[2019-08-30 09:10] LABS: Glucose Point of Care 140 mg/dL (70-110)
[2019-08-30] MEDS: cetirizine 10 mg Tablet PO (10:06)
[2019-08-30] MEDS: aspirin 81 mg EC Tablet PO (10:06)
[2019-08-30] MEDS: docusate sodium 100 mg Capsule PO ×2 (10:06→17:51)
[2019-08-30] MEDS: cilostazol 100 mg Tablet PO ×2 (10:17→17:51)
--- NOTE | 2019-08-30 11:07 | P.OP_ITS ---
Operative Report Date of procedure: August 30, 2019 <Jesse Richards MD - Last Filed: 08/30/19 11:15> Pre-op Diagnosis: Scrotal wall abscess with necrotic scrotal skin, perineal abscess <Jesse Richards MD - Last Filed: 08/30/19 11:15> Post-op diagnosis: same <Jesse Richards MD - Last Filed: 08/30/19 11:15> Procedure Done: 1. RIGHT hemiscrotectomy (Maurice) 2. I&D of perineal abscess (Richie) <Jesse Richards MD - Last Filed: 08/30/19 11:15> Pathology: Scrotal wall and cultures <Jesse Richards MD - Last Filed: 08/30/19 11:15> Surgeon: Dilshad, co-surgeon <Jesse Richards MD - Last Filed: 08/30/19 11:15> Anesthesia: General <Jesse Richards MD - Last Filed: 08/30/19 11:15> Estimated blood loss: Less than 100 cc <Jesse Richards MD - Last Filed: 08/30/19 11:15> Complications: None <Jesse Richards MD - Last Filed: 08/30/19 11:15> Findings: Full-thickness scrotal wall necrosis involving almost the entire right hemiscrotum. No evidence of intra-tunica vaginalis involvement. Abscess extended down into the perineum close to the perirectal area with full- thickness opening and drainage. <Jesse Richards MD - Last Filed: 08/30/19 11:15> Condition: stable <Jesse Richards MD - Last Filed: 08/30/19 11:15> Disposition: PACU <Jesse Richards MD - Last Filed: 08/30/19 11:15> Brief History: The patient is a 79-year-old white male with dementia who presented to Dr. Florian yesterday with complaints of scrotal infection and draining from the perineum. I was in the operating room at the time and the patient was able to be seen by Dr. Quiroz who identified the above findings. The patient had spontaneous drainage of the abscess, was hemodynamically stable, did not appear to be in significant pain, white count was not severely elevated and he was afebrile. Unfortunately he had eaten lunch after being seen by Dr. Florian and before Dr. Quiroz and for that reason he was admitted for antibiotic therapy first and scheduled for surgical debridement today. <Jesse Richards MD - Last Filed: 08/30/19 11:15> Procedure: After urgent evaluation examination and obtaining of informed consent he was taken to the operating suite on 08/30/2019. Appropriate timeout was performed, SCDs confirmed to be functioning, preoperative antibiotics administered, beta-axel protocol confirmed. After adequate level of anesthesia he was prepped and draped in usual sterile fashion in dorsolithotomy position pain careful attention to avoiding pressure points. Examination under anesthesia revealed a connecting sinus through an abscess cavity from the distal drainage portion of the abscess near the rectum to the anterior aspect of the perineum just below the scrotum and into the scrotum itself. This was opened and cultures were obtained. Large amount of necrotic tissue was debrided by Dr. Quiroz after he opened this area. The right hemiscrotum was almost completely involved with necrotic tissue. This was excised down to the tunica vaginalis. 1 area where there was some necrotic tissue anteriorly was excised and this created a small window into the tunica vaginalis were cloudy fluid was obtained but no evidence of purulent material within it. A retention suture to prevent testicular egressed through the small window was placed but tight closure was not performed to allow adequate drainage and avoid abscess into the tunica vaginalis. No other deep involvement was noted other than the scrotal wall itself. Dr. Quiroz then did some further debridement and packing. Awakened in the operating room and returned to recovery in stable condition. Please see Dr. Quiroz's dictation under separate cover. <Jesse Richards MD - Last Filed: 08/30/19 11:15>
[2019-08-30] MEDS: vancomycin 1,000 MG in sodium chloride 0.9% 250 ML 250 MG IV (11:17)
[2019-08-30 11:50] LABS: Glucose Point of Care 186 mg/dL (70-110)
--- NOTE | 2019-08-30 12:03 | PC.CHAP ---
Pastoral Care Encounter/Spiritual Assessment Type of Contact [] Declined cloth brushing and sueding supervisor visit [] Patient/Family/Request visit [] Outpatient visit [] Follow-up visit [] Physician referral [] Code/Alert [] Routine visit [] Staff referral [] Actively dying [] Patient sleeping [] Family support [] [] Out of room [] Palliative care [] [] Receiving care in room [] Pre-surgical visit [] Trauma [] Long length of stay [] ICU visit [x] Other: asleep Relational/Emotional Strength [] Patient feels connected with others/family/visitors/staff [] Distress [] Loneliness/isolation [] Abandonment Spirituality of Patient [] Person of Yvonne [] Attends Caodaism of their Yvonne [] Believes in Prayer [] Reads Bible or Judaism materials [] There are Spiritual issues to be addressed Client Evaluator Interventions [] Prayer [] Active listening [] Non-anxious presence [] Spiritual/emotional support [] Crisis/trauma care [] Spiritual counseling [] Bereavement support [] Provided bereavement packet [] Provided Bible/devotional materials [] Provided toy/stuffed animal, coloring book to patient or family member [] Provided Communion [] Anointing/[place] [] Salvation [] Completed spiritual assessment [] Other: Impact on Illness or Injury [] Angry [] Fearful [] Anxious [] Often cries [] Exhaustion [] Unable to work [] Unable to attend christian [] Unable to walk/stand [] Unable to read [] Unable to drive [] Unable to eat/drink [] Unable to sleep [] Unable to be with family [] Patient intubated [] Other: Summary asleep fewllow up Time spent with patient 5 mins
--- NOTE | 2019-08-30 14:35 | PM.OP ---
Operative Report Date of procedure: August 30, 2019 Pre-op Diagnosis: Scrotal wall abscess with necrotic scrotal skin, perineal abscess
[2019-08-30 16:59] LABS: Glucose Point of Care 197 mg/dL (70-110)
[2019-08-30] MEDS: tamsulosin 0.4 mg Capsule PO (21:11)
[2019-08-30 21:16] LABS: Glucose Point of Care 245 mg/dL (70-110)
[2019-08-31] VITALS (8 sets, daily range): BP systolic 111–157; BP diastolic 61–68; PULSE 78–99; RESP 16–20; TEMP 36.7–37.7; O2SAT 90–95
[2019-08-31 05:19] LABS: Basophils % 0.3 %; Eosinophils % 0.4 %; Hematocrit 35.4 % (42.0-52.0); Hemoglobin 11.8 g/dL (11.7-16.6); Lymphocytes % 10.1 %; Mean Corpuscular HGB Conc 33.3 g/dL (30.0-36.0); Mean Corpuscular Volume 95.9 fL (80-94); Mean Platelet Volume 9.7 fL (7.4-10.4); Monocytes # 0.4 10^3/uL (0.2-0.9); Monocytes % 4.2 %; Neutrophils # 8.2 10^3/uL (1.8-7.7); Neutrophils % 84.4 %; Nucleated Red Blood Cells % 0 %; Platelet Count 242 10^3/cmm (130-400); Red Blood Count 3.69 10^6/uL (4.1-5.3); Red Cell Distribution Width 12.8 % (12.1-15.1); White Blood Count 9.7 10^3/uL (4.0-10.0)
[2019-08-31 06:47] LABS: Glucose Point of Care 295 mg/dL (70-110)
[2019-08-31] MEDS: cilostazol 100 mg Tablet PO ×2 (08:49→17:19)
[2019-08-31] MEDS: docusate sodium 100 mg Capsule PO ×2 (08:50→17:19)
[2019-08-31] MEDS: aspirin 81 mg EC Tablet PO (08:50)
[2019-08-31] MEDS: cetirizine 10 mg Tablet PO (08:50)
--- NOTE | 2019-08-31 10:16 | PC.CHAP ---
Pastoral Care Encounter/Spiritual Assessment Type of Contact [] Declined bridge construction inspector visit [] Patient/Family/Request visit [] Outpatient visit [] Follow-up visit [] Physician referral [] Code/Alert [x] Routine visit [] Staff referral [] Actively dying [x] Patient sleeping [] Family support [] [] Out of room [] Palliative care [] [] Receiving care in room [] Pre-surgical visit [] Trauma [] Long length of stay [] ICU visit [] Other: Relational/Emotional Strength [] Patient feels connected with others/family/visitors/staff [] Distress [] Loneliness/isolation [] Abandonment Spirituality of Patient [] Person of Yvonne [] Attends Mandaen of their Yvonne [] Believes in Prayer [] Reads Bible or Shinto materials [] There are Spiritual issues to be addressed Utility Worker Production Interventions [x] Prayer [] Active listening [] Non-anxious presence [] Spiritual/emotional support [] Crisis/trauma care [] Spiritual counseling [] Bereavement support [] Provided bereavement packet [] Provided Bible/devotional materials [] Provided toy/stuffed animal, coloring book to patient or family member [] Provided Communion [] Anointing/[place] [] Salvation [x] Completed spiritual assessment [] Other: Impact on Illness or Injury [] Angry [] Fearful [] Anxious [] Often cries [] Exhaustion [] Unable to work [] Unable to attend tenriism [] Unable to walk/stand [] Unable to read [] Unable to drive [] Unable to eat/drink [] Unable to sleep [] Unable to be with family [] Patient intubated [] Other: Summary Time spent with patient
--- NOTE | 2019-08-31 10:35 | P.PN_ITS ---
Subjective Subjective: Interval history: Patient did okay overnight, has a Padron catheter in place to help with wound care. He is okay going to long-term since he lives alone. Vitals/I&O/Wt Last Vital Signs Temp 98.8 F 08/31/19 10:15 Pulse 78 08/31/19 10:15 Resp 16 08/31/19 10:15 BP 111/63 08/31/19 10:15 Pulse Ox 92 08/31/19 10:15 08/30/19 08/31/19 08/31/19 22:59 06:59 14:59 Intake Total 150 / 740 290 / 740 480 / 480 Balance 150 / -130 290 / -130 480 / 480 Weight last 48 hrs Weight 147 lb Physical Exam Narrative: EXAM NARRATIVE: Right groin: Cellulitis is improved, no significant bleeding Urinary Catheter Management^: Padorn: Cath Placed During This Visit: yes Reason for Continuing Indwelling Catheter: Acute Urinary Retention or Obstruction Urinary Catheter Date of Insertion: 08/30/19 Urinary Catheter Time of Insertion: 07:45 Data : 08/31/19 04:20 08/30/19 04:55 Micro: Microbiology 08/30/19 07:26 Gram Stain - Final Scrotum Abscess Culture - Preliminary Strep agalactiae - (group b) 08/29/19 18:33 Blood Culture - Preliminary Blood NEGATIVE TO DATE 08/29/19 18:20 Blood Culture - Preliminary Blood NEGATIVE TO DATE A&P Assessment and plan (1) Cellulitis of scrotum: Status post debridement of right scrotum and perineum with a wound measuring 13 x 13 cm. Wet-to-dry packing of the wound once daily. Leave Padron catheter in today Continue IV vancomycin and Zosyn Hopefully can be discharged to long-term in the next day or 2. Status: Acute Attestations Medical Necessity Statement*: Abscess cellulitis right hemiscrotum Coding Level of Care Code Acute Talent Director for Yasmeen Hartley Diagnoses Cellulitis of scrotum N49.2
[2019-08-31 11:23] LABS: Glucose Point of Care 332 mg/dL (70-110)
--- NOTE | 2019-08-31 11:53 | PC.RESP ---
Pulmonary Rehab information to patient.
[2019-08-31] MEDS: vancomycin 1,000 MG in sodium chloride 0.9% 250 ML 250 MG IV (12:30)
[2019-08-31] MEDS: piperacillin-tazobactam 3.375 GM in sodium chloride 0.9% (plus) 50 ML IV ×2 (15:33→20:32)
[2019-08-31 17:04] LABS: Glucose Point of Care 201 mg/dL (70-110)
[2019-08-31] MEDS: tamsulosin 0.4 mg Capsule PO (20:11)
[2019-08-31 21:58] LABS: Glucose Point of Care 384 mg/dL (70-110)
[2019-08-31] MEDS: HYDROcodone-acetaminophen 5-325 mg Tablet 1 TAB PO (23:27)
[2019-09-01] VITALS (9 sets, daily range): BP systolic 121–170; BP diastolic 66–79; PULSE 60–89; RESP 16–20; TEMP 36.5–36.9; O2SAT 92–97
[2019-09-01 04:51] LABS: Basophils % 0.7 %; Eosinophils # 0.2 10^3/uL (0.0-0.8); Eosinophils % 2.6 %; Hematocrit 31.7 % (42.0-52.0); Hemoglobin 10.3 g/dL (11.7-16.6); Lymphocytes # 1.6 10^3/uL (0.8-4.8); Lymphocytes % 25.7 %; Mean Corpuscular HGB Conc 32.5 g/dL (30.0-36.0); Mean Corpuscular Hemoglobin 30.7 pg (28.0-34.0); Mean Corpuscular Volume 94.6 fL (80-94); Mean Platelet Volume 9.4 fL (7.4-10.4); Monocytes # 0.5 10^3/uL (0.2-0.9); Monocytes % 7.4 %; Neutrophils # 3.8 10^3/uL (1.8-7.7); Neutrophils % 62.3 %; Nucleated Red Blood Cells % 0 %; Platelet Count 217 10^3/cmm (130-400); Red Blood Count 3.35 10^6/uL (4.1-5.3); Red Cell Distribution Width 12.7 % (12.1-15.1); White Blood Count 6.1 10^3/uL (4.0-10.0)
[2019-09-01] MEDS: piperacillin-tazobactam 3.375 GM in sodium chloride 0.9% (plus) 50 ML IV ×3 (05:27→20:46)
[2019-09-01] MEDS: enoxaparin 40 mg/0.4 mL Syringe SUBCUT (05:27)
[2019-09-01 06:43] LABS: Glucose Point of Care 292 mg/dL (70-110)
[2019-09-01] MEDS: cetirizine 10 mg Tablet PO (07:28)
[2019-09-01] MEDS: docusate sodium 100 mg Capsule PO ×2 (07:28→17:23)
[2019-09-01] MEDS: aspirin 81 mg EC Tablet PO (07:28)
[2019-09-01] MEDS: cilostazol 100 mg Tablet PO ×2 (07:29→17:23)
--- NOTE | 2019-09-01 09:10 | PC.SOCIAL ---
Pg 2 IMM Explained to pt Pg 2 IMM. He verbally understands. No questions voiced. Provided pt a copy & left on pt's bedside table. Signed, dated, & timed a copy then placed in pt's chart.
[2019-09-01] MEDS: HYDROcodone-acetaminophen 5-325 mg Tablet 1 TAB PO ×2 (10:08→20:46)
[2019-09-01] MEDS: vancomycin 1,000 MG in sodium chloride 0.9% 250 ML 250 MG IV (10:09)
[2019-09-01 11:42] LABS: Glucose Point of Care 390 mg/dL (70-110)
--- NOTE | 2019-09-01 14:40 | PM.PN ---
Subjective Subjective: Interval history: Patient has been doing well, no significant pain, no fevers or chills. Vitals/I&O/Wt Last Vital Signs Temp 98.2 F 09/01/19 11:10 Pulse 87 09/01/19 11:10 Resp 18 09/01/19 11:10 BP 121/71 09/01/19 11:10 Pulse Ox 94 09/01/19 11:10 08/31/19 09/01/19 09/01/19 22:59 06:59 14:59 Intake Total 290 / 1190 50 / 1190 1010 / 1010 Output Total 1400 / 2500 1100 / 2500 Balance -1110 / -1310 -1050 / -1310 1010 / 1010 Physical Exam Narrative: EXAM NARRATIVE: Right groin: Wound has good granulation tissue, erythema is significantly improved Urinary Catheter Management^: Padron: Cath Placed During This Visit: yes Reason for Continuing Indwelling Catheter: Acute Urinary Retention or Obstruction Urinary Catheter Date of Insertion: 08/30/19 Urinary Catheter Time of Insertion: 07:45 Data : 09/01/19 04:15 08/30/19 04:55 Micro: Microbiology 08/30/19 07:26 Gram Stain - Final Scrotum Anaerobic Culture - Preliminary Abscess Culture - Preliminary Strep agalactiae - (group b) Staphylococcus aureus 08/29/19 20:23 Urine Culture - Preliminary Urine,Clean Catch Yeast species A&P Assessment and plan (1) S/P excisional debridement: 79-year-old gentleman postop day 2 status post excisional debridement of scrotal skin and subcutaneous tissue and drainage of perianal abscess doing well Continue IV vancomycin and Zosyn Wound cultures grew staph Continue Padron catheter to help with wound care Awaiting transfer to group home since patient lives alone, is deaf and has a large wound that needs additional resources Status: Acute Attestations Medical Necessity Statement*: Status post excisional debridement of scrotum and drainage of abscess requiring continued inpatient stay while awaiting transfer to group home Coding Level of Care Code Acute Makeup Instructor for Chg Fwd Diagnoses S/P excisional debridement Z98.890
[2019-09-01 16:46] LABS: Glucose Point of Care 332 mg/dL (70-110)
[2019-09-01] MEDS: tamsulosin 0.4 mg Capsule PO (20:46)
[2019-09-01 21:15] LABS: Glucose Point of Care 256 mg/dL (70-110)
[2019-09-02 03:49] VITALS: BP 171/82; PULSE 75; RESP 16; TEMP 36.4; O2SAT 93
[2019-09-02] MEDS: enoxaparin 40 mg/0.4 mL Syringe SUBCUT (05:06)
[2019-09-02] MEDS: piperacillin-tazobactam 3.375 GM in sodium chloride 0.9% (plus) 50 ML IV ×2 (05:07→13:32)
[2019-09-02 06:18] LABS: Basophils % 0.7 %; Eosinophils # 0.1 10^3/uL (0.0-0.8); Eosinophils % 2.5 %; Hematocrit 33.7 % (42.0-52.0); Hemoglobin 10.9 g/dL (11.7-16.6); Lymphocytes # 1.3 10^3/uL (0.8-4.8); Lymphocytes % 22.8 %; Mean Corpuscular HGB Conc 32.3 g/dL (30.0-36.0); Mean Corpuscular Hemoglobin 30.5 pg (28.0-34.0); Mean Corpuscular Volume 94.4 fL (80-94); Mean Platelet Volume 9.2 fL (7.4-10.4); Monocytes # 0.4 10^3/uL (0.2-0.9); Monocytes % 6.3 %; Neutrophils # 3.8 10^3/uL (1.8-7.7); Neutrophils % 66.1 %; Nucleated Red Blood Cells % 0 %; Platelet Count 233 10^3/cmm (130-400); Red Blood Count 3.57 10^6/uL (4.1-5.3); Red Cell Distribution Width 12.5 % (12.1-15.1); White Blood Count 5.7 10^3/uL (4.0-10.0)
[2019-09-02 06:25] LABS: Glucose Point of Care 313 mg/dL (70-110)
[2019-09-02 07:35] VITALS: PULSE 65; RESP 17; O2SAT 93
[2019-09-02 07:40] VITALS: PULSE 65
[2019-09-02 08:00] VITALS: BP 177/84; PULSE 72; RESP 18; TEMP 36.7; O2SAT 95
[2019-09-02] MEDS: cetirizine 10 mg Tablet PO (09:09)
[2019-09-02] MEDS: docusate sodium 100 mg Capsule PO (09:09)
[2019-09-02] MEDS: aspirin 81 mg EC Tablet PO (09:09)
[2019-09-02] MEDS: cilostazol 100 mg Tablet PO (09:09)
[2019-09-02] MEDS: HYDROcodone-acetaminophen 5-325 mg Tablet 1 TAB PO (10:52)
[2019-09-02 11:25] LABS: Glucose Point of Care 331 mg/dL (70-110)
[2019-09-02] MEDS: vancomycin 1,000 MG in sodium chloride 0.9% 250 ML 250 MG IV (11:26)
[2019-09-02 12:06] VITALS: BP 134/72; PULSE 75; RESP 18; TEMP 36.8; O2SAT 95
--- NOTE | 2019-09-02 14:17 | PM.PN ---
Subjective Subjective: Interval history: Patient has been doing well denies any pain fevers or chills. Ambulating with assistance Vitals/I&O/Wt Last Vital Signs Temp 98.2 F 09/02/19 12:06 Pulse 75 09/02/19 12:06 Resp 18 09/02/19 12:06 BP 134/72 09/02/19 12:06 Pulse Ox 95 09/02/19 12:06 09/01/19 09/02/19 09/02/19 22:59 06:59 14:59 Intake Total 830 / 2140 50 / 2140 510 / 510 Output Total 1700 / 3050 1350 / 3050 1000 / 1000 Balance -870 / -910 -1300 / -910 -490 / -490 Physical Exam Narrative: EXAM NARRATIVE: Wound has good granulation tissue, cellulitis is resolved Urinary Catheter Management^: Padron: Cath Placed During This Visit: yes Reason for Continuing Indwelling Catheter: Chronic Indwelling Urinary Catheter on Admission Urinary Catheter Date of Insertion: 08/30/19 Urinary Catheter Time of Insertion: 07:45 Data : 09/02/19 05:50 08/30/19 04:55 Micro: Microbiology 08/30/19 07:26 Gram Stain - Final Scrotum Anaerobic Culture - Preliminary Abscess Culture - Preliminary Strep agalactiae - (group b) Staphylococcus aureus 08/29/19 20:23 Urine Culture - Final Urine,Clean Catch María albicans A&P Assessment and plan (1) S/P excisional debridement: Doing well Plan for discharge to detention today with Padron catheter to help with wound care Status: Acute Attestations Medical Necessity Statement*: DC home today Coding Level of Care Code Acute Windsurfing Instructor for Chg Fwd Diagnoses S/P excisional debridement Z98.890
--- NOTE | 2019-09-02 14:17 | PM.DCS ---
Discharge Providers Date of Admission: 08/29/19 19:35 Date of Discharge: September 02, 2019 Attending Provider at Admission: Dru Quiroz MD Attending Provider at Discharge: Dru Quiroz MD Primary Care Provider: Nick Florian MD Diagnoses at Discharge Discharge Diagnosis (1) S/P excisional debridement: Status: Acute Reason for Visit Reason for Visit: Reason For Visit: [facility] Course Discharge Summary: This a 79-year-old gentleman who was seen by Dr. Florian in his office today for pain redness and swelling in his scrotum of 3 days duration. Patient denies any history of trauma or similar episodes in the past. Patient is an insulin-dependent diabetic. He was recently seen in the ER couple of days ago for COPD exacerbation. Unfortunately he ate before coming to the office today. Patient states that during he has been having continuous drainage over the last couple of days. No fevers or chills Patient underwent excisional debridement of scrotum as well as drainage of abscess. He was treated with IV vancomycin and Zosyn. At time of discharge he was tolerating a regular diet ambulating and he had a Padron catheter in place to help with wound care. Patient will be going to senior care since he lives alone and will not be able to take adequate care of his wounds. He will follow-up in wound care and with Dr. Richards for a possible delayed secondary closure Physical Exam Urinary Catheter Management^: Padron: Cath Placed During This Visit: yes Reason for Continuing Indwelling Catheter: Chronic Indwelling Urinary Catheter on Admission Urinary Catheter Date of Insertion: 08/30/19 Urinary Catheter Time of Insertion: 07:45 Discharge Data Data Completed and Pending: Completed Studies During Hospitalization Category Date Time Status XR chest 1V marquez ble [id number] Urgent Exams 08/29/19 16:14 Completed US scrotum [id number] Urgent Ultrasound 08/29/19 16:16 Completed Pending at discharge Category Date Time Status Abscess Culture a nd Gram Stain Stat Lab 08/30/19 07:26 Results Anaerobic Culture Stat Lab 08/30/19 07:26 Results Blood Culture Sta t Lab 08/29/19 18:33 Results Pathology: Surgic al [PTH] Routine Pth 08/30/19 07:57 Received Labs from last 24 hours 09/02/19 09/02/19 09/02/19 11:07 06:06 05:50 WBC 5.7 RBC 3.57 L Hgb 10.9 L Hct 33.7 L MCV 94.4 H MCH 30.5 MCHC 32.3 RDW 12.5 Plt Count 233 MPV 9.2 Neut % (Auto) 66.1 Lymph % (Auto) 22.8 [place] % (Auto) 6.3 Eos % (Auto) 2.5 Baso % (Auto) 0.7 Neut # (Auto) 3.8 Lymph # (Auto) 1.3 [place] # (Auto) 0.4 Eos # (Auto) 0.1 Baso # (Auto) 0.0 Nucleated RBC % (a uto) 0 Nucleated RBCs # 0.0 POC Glucose 331 313 09/01/19 09/01/19 20:57 16:02 WBC RBC Hgb Hct MCV MCH MCHC RDW Plt Count MPV Neut % (Auto) Lymph % (Auto) [place] % (Auto) Eos % (Auto) Baso % (Auto) Neut # (Auto) Lymph # (Auto) [place] # (Auto) Eos # (Auto) Baso # (Auto) Nucleated RBC % (a uto) Nucleated RBCs # POC Glucose 256 332 Vitals: Last Vital Signs Temp 98.2 F 09/02/19 12:06 Pulse 75 09/02/19 12:06 Resp 18 09/02/19 12:06 BP 134/72 09/02/19 12:06 Pulse Ox 95 09/02/19 12:06 Discharge Plan Discharge Patient Disposition: er SNF Condition: Stable Prescriptions: New Colace 100 mg capsule 100 mg PO BID Qty: 30 RF: 0 Levaquin 750 mg tablet 750 mg PO DAILY 10 Days Qty: 10 RF: 0 Continued cetirizine 10 mg tablet 10 mg PO DAILY RF: 0 naproxen sodium 550 mg tablet 550 mg PO BID RF: 0 cilostazol 100 mg tablet 100 mg PO BID RF: 0 tamsulosin 0.4 mg capsule 0.4 mg PO BEDTIME RF: 0 triamcinolone acetonide 0.1 % ointment See Rx Instructions .ROUTE .COMPLEX RF: 0 nystatin 100,000 unit/gram cream See Rx Instructions .ROUTE .COMPLEX RF: 0 aspirin [Aspir-81] 81 mg Tablet,Delayed Release (Dr/Ec) 81 mg PO DAILY RF: 0 acetaminophen [Tylenol Extra Strength] 500 mg Tablet 500 - 1,000 mg PO PRN RF: 0 Basaglar KwikPen U-100 Insulin 100 unit/mL (3 mL) insulin pen See Rx Instructions .ROUTE .COMPLEX RF: 0 erythromycin 5 mg/gram (0.5 %) ointment See Rx Instructions .ROUTE .COMPLEX RF: 0 mupirocin 2 % ointment 1 applic TOPICAL TID RF: 0 budesonide-formoterol [Symbicort] 80-4.5 mcg/actuation HFA aerosol inhaler 2 inh INHALATION BID Qty: 10.2 RF: 0 albuterol sulfate [Proventil HFA] 90 mcg/actuation HFA aerosol inhaler 2 inh INHALATION Q6H PRN (Reason: shortness of breath or wheezing) Qty: 18 RF: 0 Discontinued sulfamethoxazole-trimethoprim 800-160 mg tablet 1 tab PO BID RF: 0 Discharge Orders: Discharge Order (Routine); Ordered 09/02/19 Ordered By: Dru Quiroz Referrals: Dru Quiroz MD [Physician] - (You have a hospital follow up appointment with Dr. Quiroz on September 12 at 3:45pm [facility] will help with this.) Nick Florian MD [Primary Care Provider] - ([facility] will make all extra appoinmtents for you for hospital follow up.) [facility], [Staff Physician] - 1 week ([facility] will make all extra hospital follow up appointments for you.) Jesse Richards MD [Physician] - 4-7 days Discharge Diet: Advance as tolerated Discharge Activity: Resume usual activity Patient Instructions: Hydrocodone/Acetaminophen (By mouth), Laxative, Stool Softeners (By mouth), Levofloxacin (By mouth) Activity Restrictions/Additional Instructions: wet to dry once daily with Kerlix gauze and ABD OK to shower Remove Padron in next 3-4 days as patient becomes more ambulatory to help prevent contamination of dressings. F/u in wound care clinic in 1 week Discharge Date/Time: 09/02/19 15:15 Discharge Attestations Time Spent in Discharge Care*: less than 30 min Quality Metrics Clinical Quality Measures During this hospital stay, did patient experience: None Coding Level of Care Code Acute Costume Director for Chg Fwd Diagnoses S/P excisional debridement Z98.890
--- NOTE | 2019-09-02 14:54 | PC.NURSE ---
Report called to Dahiana at [facility] at this time. Notified Stacey in social work supervisor that patient does not have any family and has no ride to the custodial.
[2019-09-02 15:08] VITALS: BP 134/72; PULSE 75; RESP 18; TEMP 36.8; O2SAT 95
--- NOTE | 2019-09-02 15:15 | PC.NURSE ---
Patient IV removed intact. Patient wheel chaired to transport van to be transported to [facility] at this time. Patient was discharged with his Padron Catheter. Patient is A&Ox3. Respirations even and non-labored on room air. Patient has his walking boot on and is able to ambulate from the wheel chair to the van.
== END 2019-09-02 15:15 | disposition skilled nursing facility (03) | DRG 712 ==
LOC: ER 18:43 → MEDSURG 20:43
PROVIDERS: Physician Assistant; Admitting Provider Surgery; PCP Family Medicine; Visit Provider Surgery
PROC: 0JBB0ZX Excision of Perineum Subcutaneous Tissue and Fascia, Open Approach, Diagnostic (ICD-10-PCS; principal; 2019-08-30 07:00)
DX: N49.2 Inflammatory disorders of scrotum (principal); F03.90 Unspecified dementia, unspecified severity, without behavioral disturbance, psychotic disturbance, mood disturbance, and anxiety; H91.90 Unspecified hearing loss, unspecified ear; J44.9 Chronic obstructive pulmonary disease, unspecified; E11.9 Type 2 diabetes mellitus without complications; Z87.891 Personal history of nicotine dependence; Z79.4 Long term (current) use of insulin; Z79.82 Long term (current) use of aspirin
CPT/HCPCS: 12345; 36415; 36416; 51702; 71045; 76870; 80053; 81001; 82962; 83605; 85025; 87040; 87070; 87075; 87077; 87086; 87106; 87186; 87205; 88304; 94640; 96372; 96375; 97116; 97161; 97530; 99283; J0360; J1170; J1650; J1815; J2001; J2405; J2543; J2704; J2710; J3010; J3370; J3490; J7030; J7050

== ENCOUNTER 2019-09-13 08:40 | Outpatient (RCR) | payer MEDICARE, SELFPAY | END 2019-09-18 23:59 | disposition home or self-care (01) | LOC: WOUND 08:40 | PROVIDERS: PCP Family Medicine; Visit Provider Thoracic Surgery (Cardiothoracic Vascular Surgery) | DX: I96 Gangrene, not elsewhere classified (principal); N45.4 Abscess of epididymis or testis | CPT/HCPCS: 11042; 11045; G0463 ==

== ENCOUNTER 2019-09-21 13:09 | Outpatient (CLI) | payer MEDICARE, SELFPAY | END 2019-09-21 13:10 | disposition home or self-care (01) | LOC: WOUND 13:09 | PROVIDERS: PCP Family Medicine; Visit Provider Thoracic Surgery (Cardiothoracic Vascular Surgery) | DX: I96 Gangrene, not elsewhere classified (principal); L02.818 Cutaneous abscess of other sites | CPT/HCPCS: 11042; 11045 ==

== ENCOUNTER 2019-10-18 14:20 | Outpatient (CLI) | payer MEDICARE, SELFPAY | END 2019-10-18 14:21 | disposition home or self-care (01) | LOC: WOUND 14:21 | PROVIDERS: PCP Family Medicine; Visit Provider Thoracic Surgery (Cardiothoracic Vascular Surgery) | DX: L02.214 Cutaneous abscess of groin (principal) | CPT/HCPCS: 11042 ==

== ENCOUNTER 2019-10-25 14:22 | Outpatient (CLI) | payer MEDICARE, SELFPAY | END 2019-10-25 14:23 | disposition home or self-care (01) | LOC: WOUND 14:22 | PROVIDERS: PCP Family Medicine; Visit Provider Surgery | DX: Z09 Encounter for follow-up examination after completed treatment for conditions other than malignant neoplasm (principal) | CPT/HCPCS: 99212 ==

== ENCOUNTER 2019-10-27 13:09 | Emergency (ER) | payer MEDICARE, SELFPAY ==
--- NOTE | 2019-10-27 13:18 | CT_ITS ---
WS: [id number] CT HEAD NONCONTRAST HISTORY: Fall/AMS TECHNIQUE: Contiguous axial imaging performed through the brain in 2.5 mm imaging. Bone and soft tiss ue windows. Sagittal and coronal reformats reviewed. All CT scans at [facility] use at ast one of these dose optimization techniques: automated exposure control; mA and/or kV adjustment pe r patient size (includes targeted exams where dose is matched to clinical indication); or iterative r econstruction. DLP: 755.08 mGy.cm COMPARISON: 08/10/2019 No acute intracranial hemorrhage, midline shift or mass effect. Moderate atrophy and chronic microvascular ischemic changes. Normal gaytan-white matter differentiation . Ventricles: Mildly prominent ventricles on the basis of atrophy. Paranasal sinuses: Increased soft tissue in the LEFT auditory canal. New since the prior study may be related to cerumen. Mastoid air cells: Well pneumatized. Calvarium and scalp: No calvarial fracture. There is a small scalp hematoma centered over the LEFT fr ontal bone. Intracranial carotid artery atherosclerosis. CT/CT head wo con* [id number] IMPRESSION: 1. No acute intracranial hemorrhage. 2. Moderate atrophy and chronic ischemic disease. 3. LEFT frontal scalp hematoma.
--- NOTE | 2019-10-27 13:18 | XRR_ITS ---
PROCEDURE INFORMATION: Exam: XR Left Hip with Pelvis when Performed Exam date and time: 10/27/2019 2:07 PM Age: 79 years old Clinical indication: Injury or trauma; Fall; Initial encounter; Blunt trauma (contusions or hematomas); Injury date: 10/27/19; Injury details: PT fell; C/O left hip pain. AMS TECHNIQUE: Imaging protocol: XR Left hip with pelvis when performed. Views: 2 or 3 views. COMPARISON: No relevant prior studies available. FINDINGS: Bones/joints: Postsurgical hardware is seen in the lower lumbar spine No acute fracture. The examination is otherwise unremarkable Soft tissues: Unremarkable. XR/XR hip LT 2-3V wo/w pel* [id number] IMPRESSION: No acute bone abnormality. Postsurgical hardware lower lumbar spine
--- NOTE | 2019-10-27 13:19 | ECG_ITS ---
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 Measurements Intervals [place] Rate: 65 P: 35 CT: 164 QRS: -25 QRSD: 96 T: 60 QT: 386 QTc: 403 Interpretive Statements SINUS RHYTHM BORDERLINE LEFT AXIS DEVIATION [QRS AXIS < -20] Compared to ECG 08/10/2019 14:55:18 No significant changes Electronically Signed On 10-27-2019 15:35:22 CDT by Rubi Garcia M.D. [email or web address]
--- NOTE | 2019-10-27 13:23 | W.ED.AMS ---
HPI - Altered Mental Status General: Chief Complaint: Extremity Injury, Upper Stated Complaint: AMS S/P FALL Time Seen by Provider: 10/27/19 13:11 History of Present Illness: HPI narrative: 79-year-old male brought in by EMS. He was at the custodial and stumbled and fell he cannot recall the events. He has a laceration on his episcopalian. He has very poor hearing. He is complaining of left hip pain. Does have a friend who was in the room with him but not much help as far as the events around the fall. His blood sugar is elevated. Review of Systems Const: Denies: fever(s), chills, body aches, fatigue, malaise or night sweats Eyes: Denies: change in vision or blurry vision ENMT: Denies: throat pain, oral sores, dental pain, nasal discharge or nasal congestion Card: Denies: chest pain, palpitations, irregular heart rhythm, edema, syncope, dyspnea on exertion, orthopnea or leg pain with exertion Resp: Denies: dyspnea, productive cough, non-productive cough or wheezing GI: Denies: abdominal pain, nausea, vomiting, hematemesis, coffee ground emesis, dysphagia, heartburn, diarrhea, constipation, GI cramping, hematochezia or melena : Denies: flank pain, difficulty urinating, dysuria, urinary frequency, urinary urgency, urinary incontinence or hematuria Musc: Denies: neck pain, back pain, extremity pain, extremity swelling, joint pain or joint swelling Skin/Breast: Denies: rash, pruritus or erythema Neuro: Reports: frequent falls; Denies: headache(s), numbness in extremities, weakness in extremities, sensory changes, lack of coordination, dizziness, vertigo or confusion Endo: Denies: polyuria, polydipsia, tired all the time or cold intolerance Cipriano/Lymph: Denies: easy bruising, easy bleeding, petechiae, enlarged lymph nodes or tender lymph nodes PFSH ED PFSH: Medical History (Updated 11/04/19 @ 00:00 by ) Constipation COPD (chronic obstructive pulmonary disease) Diabetes mellitus, type II Fall -unclear etiology -telemetry monitoring -VSS; continue to monitor Perineal abscess Surgical History (Updated 10/29/19 @ 16:11 by Nikolas Cardona MD) History of back surgery History of carpal tunnel release of both wrists History of neck surgery S/P excisional debridement Family History Mother , AT AGE 65 Cancer Father , IN HIS 90'S No problems noted. Denies family history of Anesthesia complication Bleeding disorder Social History (Updated 10/29/19 @ 16:11 by Nikolas Cardona MD) Smoking and tobacco status: former smoker Alcohol intake: current Alcohol intake frequency: few times a month Marital status: History of recent travel: No Physical Exam Const: COMMON NORMALS: no acute distress GENERAL APPEARANCE: cooperative and comfortable ORIENTATION/CONSCIOUSNESS: Yes awake HENMT: COMMON NORMALS: normocephalic, external ears normal, TM's normal bilaterally, Normal nasal mucous membranes and turbinates present and oropharynx normal HEAD & SCALP: normocephalic NOSE: Normal nasal mucous membranes and turbinates present EXTERNAL EAR: Yes external ears normal TYMPANIC MEMBRANE: TM's normal bilaterally Eye: COMMON NORMALS: Equal, round and reactive pupils present, EOMs intact bilaterally, conjunctivae normal and no scleral icterus CONJUNCTIVA: Yes conjunctivae normal PUPIL: Yes Equal, round and reactive pupils present Neck/C-Spine: COMMON NORMALS: full ROM, no lymphadenopathy, supple and no JVD Lymph: LYMPHATIC: no lymphadenopathy noted and no lymphedema noted Resp: COMMON NORMALS: normal respiratory effort, No retractions, No use of accessory muscles and clear to auscultation bilaterally AUSCULTATION: clear to auscultation bilaterally Cardio: COMMON NORMALS: no JVD, regular rate, regular rhythm and No murmurs present (Cardio) RATE: regular rate RHYTHM: regular rhythm GI: COMMON NORMALS: Soft to palpation and No hepatosplenomegaly present AUSCULTATION: Yes normoactive bowel sounds PALPATION: Yes Soft to palpation, No Tenderness to palpation present (GI), No Guarding due to palpation present (GI) and Yes No hepatosplenomegaly present Extremity: NARRATIVE EXTREMITY EXAM: No edema patient does have left hip pain there is no external rotation or shortening noted Skin: COMMON NORMALS: no rashes or lesions noted NARRATIVE SKIN EXAM: Skin tear/abrasion on right episcopalian is not full-thickness does not require sutures. GENERAL SKIN EXAM: no rashes or lesions noted Course Vital Signs: Vital signs: Vital Signs Temperature 97.7 F 10/27/19 13:35 Pulse Rate 87 10/27/19 16:22 Respiratory Rate 18 10/27/19 16:22 Blood Pressure 164/74 10/27/19 16:22 Pulse Oximetry 96 10/27/19 16:22 MDM - Altered Mental Status MDM Narrative: Medical decision making narrative: X-rays reviewed no evidence of fracture. Labs reviewed. We will go ahead and discharge. Follow-up as needed Lab Data: Labs: Lab Results 10/27/19 10/27/19 10/27/19 Range/Units 13:37 13:37 13:37 WBC 5.0 (4.0-10.0) 10^3/ uL RBC 4.21 (4.1-5.3) 10^6/u L Hgb 13.1 (11.7-16.6) g/dL Hct 38.6 L (42.0-52.0) % MCV 91.7 (80-94) fL MCH 31.1 (28.0-34.0) pg MCHC 33.9 (30.0-36.0) g/dL RDW 12.3 (12.1-15.1) % Plt Count 205 (130-400) 10^3/c mm MPV 10.8 H (7.4-10.4) fL Neut % (Auto) 55.3 % Lymph % (Auto) 34.7 % [place] % (Auto) 5.2 % Eos % (Auto) 2.8 % Baso % (Auto) 0.8 % Neut # (Auto) 2.79 (1.8-7.7) 10^3/u L Lymph # (Auto) 1.8 (0.8-4.8) 10^3/u L [place] # (Auto) 0.3 (0.2-0.9) 10^3/u L Eos # (Auto) 0.1 (0.0-0.8) 10^3/u L Baso # (Auto) 0.0 (0.0-0.1) 10^3/u L Nucleated RBC % (a uto) 0 % Nucleated RBCs # 0.0 /100WBC Sodium 135 L (136-145) mmol/L Potassium 4.2 (3.5-5.1) mmol/L Chloride 100 (98-107) mmol/L Carbon Dioxide 26 (22-29) mmol/L Anion Gap 13.2 (5-19) BUN 19 (8-23) mg/dL Creatinine 0.9 (0.7-1.2) mg/dL Glucose 470 H (65-115) mg/dL POC Glucose (70-110) mg/dL Calculated Osmolal ity 297 H (285-295) mOsm/k g Lactate 1.6 (0.5-2.2) mmol/L Calcium 9.0 (8.5-10.5) mg/dL Total Bilirubin 0.2 (0.15-1.2) mg/dL AST 18 (0-40) U/L ALT 20 (0-41) U/L Alkaline Phosphata se 127 (40-130) IU/L Creatine Kinase 44 (39-308) U/L Troponin T Baselin e (0-15) ng/L Troponin T 120 Min [place] (0-15) ng/L Delta Troponin T (0-10) ABS# Total Protein 6.3 L (6.6-8.7) g/dL Albumin 3.7 (3.5-5.2) g/dL Globulin 2.6 (1.3-4.6) g/dL Lipase 21 (13-60) U/L Urine Color (Yellow) Urine Appearance (CLEAR) Urine pH (5-7) Ur Specific Gravit y (1.005-1.030) Urine Protein (Negative) Urine Glucose (UA) (Normal) Urine Ketones (Negative) Urine Blood (Negative) Urine Nitrate (Negative) Urine Bilirubin (NEGATIVE) Urine Urobilinogen (Negative) mg/dL Ur Leukocyte Marilin ase (Negative) Urine RBC (0-2) /hpf Urine WBC (0-5) /hpf Ur Squamous Epith Cells (0-5) Amorphous Sediment Urine Bacteria (NONE) Serum Ketones (Negative) 10/27/19 10/27/19 10/27/19 Range/Units 13:37 13:37 14:51 WBC (4.0-10.0) 10^3/ uL RBC (4.1-5.3) 10^6/u L Hgb (11.7-16.6) g/dL Hct (42.0-52.0) % MCV (80-94) fL MCH (28.0-34.0) pg MCHC (30.0-36.0) g/dL RDW (12.1-15.1) % Plt Count (130-400) 10^3/c mm MPV (7.4-10.4) fL Neut % (Auto) % Lymph % (Auto) % [place] % (Auto) % Eos % (Auto) % Baso % (Auto) % Neut # (Auto) (1.8-7.7) 10^3/u L Lymph # (Auto) (0.8-4.8) 10^3/u L [place] # (Auto) (0.2-0.9) 10^3/u L Eos # (Auto) (0.0-0.8) 10^3/u L Baso # (Auto) (0.0-0.1) 10^3/u L Nucleated RBC % (a uto) % Nucleated RBCs # /100WBC Sodium (136-145) mmol/L Potassium (3.5-5.1) mmol/L Chloride (98-107) mmol/L Carbon Dioxide (22-29) mmol/L Anion Gap (5-19) BUN (8-23) mg/dL Creatinine (0.7-1.2) mg/dL Glucose (65-115) mg/dL POC Glucose (70-110) mg/dL Calculated Osmolal ity (285-295) mOsm/k g Lactate (0.5-2.2) mmol/L Calcium (8.5-10.5) mg/dL Total Bilirubin (0.15-1.2) mg/dL AST (0-40) U/L ALT (0-41) U/L Alkaline Phosphata se (40-130) IU/L Creatine Kinase (39-308) U/L Troponin T Baselin e 18 H (0-15) ng/L Troponin T 120 Min [place] (0-15) ng/L Delta Troponin T (0-10) ABS# Total Protein (6.6-8.7) g/dL Albumin (3.5-5.2) g/dL Globulin (1.3-4.6) g/dL Lipase (13-60) U/L Urine Color Straw (Yellow) Urine Appearance Hazy A (CLEAR) Urine pH 7 (5-7) Ur Specific Gravit y 1.015 (1.005-1.030) Urine Protein Neg (Negative) Urine Glucose (UA) 4+ H (Normal) Urine Ketones Negative (Negative) Urine Blood Neg (Negative) Urine Nitrate Negative (Negative) Urine Bilirubin Neg (NEGATIVE) Urine Urobilinogen Norm (Negative) mg/dL Ur Leukocyte Marilin ase Negative (Negative) Urine RBC 0-4 H (0-2) /hpf Urine WBC None (0-5) /hpf Ur Squamous Epith Cells 5-10 H (0-5) Amorphous Sediment Not Reportable Urine Bacteria None (NONE) Serum Ketones Negative (Negative) 10/27/19 10/27/19 Range/Units 15:16 15:50 WBC (4.0-10.0) 10^3/ uL RBC (4.1-5.3) 10^6/u L Hgb (11.7-16.6) g/dL Hct (42.0-52.0) % MCV (80-94) fL MCH (28.0-34.0) pg MCHC (30.0-36.0) g/dL RDW (12.1-15.1) % Plt Count (130-400) 10^3/c mm MPV (7.4-10.4) fL Neut % (Auto) % Lymph % (Auto) % [place] % (Auto) % Eos % (Auto) % Baso % (Auto) % Neut # (Auto) (1.8-7.7) 10^3/u L Lymph # (Auto) (0.8-4.8) 10^3/u L [place] # (Auto) (0.2-0.9) 10^3/u L Eos # (Auto) (0.0-0.8) 10^3/u L Baso # (Auto) (0.0-0.1) 10^3/u L Nucleated RBC % (a uto) % Nucleated RBCs # /100WBC Sodium (136-145) mmol/L Potassium (3.5-5.1) mmol/L Chloride (98-107) mmol/L Carbon Dioxide (22-29) mmol/L Anion Gap (5-19) BUN (8-23) mg/dL Creatinine (0.7-1.2) mg/dL Glucose (65-115) mg/dL POC Glucose 414 (70-110) mg/dL Calculated Osmolal ity (285-295) mOsm/k g Lactate (0.5-2.2) mmol/L Calcium (8.5-10.5) mg/dL Total Bilirubin (0.15-1.2) mg/dL AST (0-40) U/L ALT (0-41) U/L Alkaline Phosphata se (40-130) IU/L Creatine Kinase (39-308) U/L Troponin T Baselin e (0-15) ng/L Troponin T 120 [address] [place] 13.69 (0-15) ng/L Delta Troponin T -4.31 L (0-10) ABS# Total Protein (6.6-8.7) g/dL Albumin (3.5-5.2) g/dL Globulin (1.3-4.6) g/dL Lipase (13-60) U/L Urine Color (Yellow) Urine Appearance (CLEAR) Urine pH (5-7) Ur Specific Gravit y (1.005-1.030) Urine Protein (Negative) Urine Glucose (UA) (Normal) Urine Ketones (Negative) Urine Blood (Negative) Urine Nitrate (Negative) Urine Bilirubin (NEGATIVE) Urine Urobilinogen (Negative) mg/dL Ur Leukocyte Marilin ase (Negative) Urine RBC (0-2) /hpf Urine WBC (0-5) /hpf Ur Squamous Epith Cells (0-5) Amorphous Sediment Urine Bacteria (NONE) Serum Ketones (Negative) Discharge Plan Discharge Patient Disposition: Home, Self-Care Clinical Impression: Fall Condition: Stable Prescriptions: No Action Miralax 17 gram Powder In Packet 17 g PO DAILY Qty: 30 RF: 0 Lantus Solostar U-100 Insulin 100 unit/mL (3 mL) insulin pen 10 unit SUBCUT QPM Qty: 3 RF: 0 Humalog KwikPen Insulin 100 unit/mL insulin pen 7 unit SUBCUT TID Qty: 3 RF: 0 cilostazol 100 mg tablet 100 mg PO BID Qty: 30 RF: 0 cetirizine 10 mg tablet 10 mg PO DAILY Qty: 30 RF: 0 Aspir-81 81 mg Tablet,Delayed Release (Dr/Ec) 81 mg PO DAILY Qty: 30 RF: 0 Tylenol Extra Strength 500 mg Tablet 500 - 1,000 mg PO PRN PRN (Reason: Pain, Mild) Qty: 30 RF: 0 Milk of Magnesia 400 mg/5 mL suspension 5 ml PO DAILY PRN (Reason: Constipation) Qty: 30 RF: 0 tamsulosin 0.4 mg capsule 0.4 mg PO BEDTIME Qty: 30 RF: 0 bisacodyl 10 mg suppository 10 mg CO DAILY PRN (Reason: Constipation) Qty: 30 RF: 0 Colace 100 mg capsule 100 mg PO BID Qty: 30 RF: 0 Proventil HFA 90 mcg/actuation HFA aerosol inhaler 2 inh INHALATION Q6H PRN (Reason: shortness of breath or wheezing) Qty: 18 RF: 0 Symbicort 80-4.5 mcg/actuation HFA aerosol inhaler 2 inh INHALATION BID Qty: 10.2 RF: 0 hydrocodone-acetaminophen 5-325 mg tablet 1 tab PO Q4H PRN (Reason: Pain) Qty: 30 RF: 0 Discharge Orders: Discharge Order (Routine); Ordered 10/27/19 Ordered By: Rohith Walker Referrals: Nick Florian MD [Primary Care Provider] - Discharge Diet: Usual diet Discharge Activity: Resume usual activity Activity Restrictions/Additional Instructions: Follow-up with your primary care doctor as needed ibuprofen or Tylenol for pain. Discharge Date/Time: 10/27/19 16:51 Coding Level of Care Code ED Grocery Deliverer for Chg Fwd Exam Comprehensive
[2019-10-27 13:35] VITALS: BP 137/74; PULSE 71; RESP 18; TEMP 36.5; O2SAT 94; BMI 21.5
[2019-10-27 13:48] LABS: Basophils % 0.8 %; Eosinophils # 0.1 10^3/uL (0.0-0.8); Eosinophils % 2.8 %; Hematocrit 38.6 % (42.0-52.0); Hemoglobin 13.1 g/dL (11.7-16.6); Lymphocytes # 1.8 10^3/uL (0.8-4.8); Lymphocytes % 34.7 %; Mean Corpuscular HGB Conc 33.9 g/dL (30.0-36.0); Mean Corpuscular Hemoglobin 31.1 pg (28.0-34.0); Mean Corpuscular Volume 91.7 fL (80-94); Mean Platelet Volume 10.8 fL (7.4-10.4); Monocytes # 0.3 10^3/uL (0.2-0.9); Monocytes % 5.2 %; Neutrophils # 2.79 10^3/uL (1.8-7.7); Neutrophils % 55.3 %; Nucleated Red Blood Cells % 0 %; Platelet Count 205 10^3/cmm (130-400); Red Blood Count 4.21 10^6/uL (4.1-5.3); Red Cell Distribution Width 12.3 % (12.1-15.1)
[2019-10-27 14:00] LABS: Ketone (Acetest) Serum Negative (Negative)
[2019-10-27 14:03] LABS: Lactate (Lactic Acid level) 1.6 mmol/L (0.5-2.2)
[2019-10-27 14:09] LABS: Alanine Aminotransferase 20 U/L (0-41); Albumin Level 3.7 g/dL (3.5-5.2); Alkaline Phosphatase 127 IU/L (40-130); Anion Gap 13.2 (5-19); Aspartate Amino Transferase 18 U/L (0-40); Blood Urea Nitrogen 19 mg/dL (8-23); Carbon Dioxide 26 mmol/L (22-29); Chloride 100 mmol/L (98-107); Creatine Phosphokinase 44 U/L (39-308); Globulin 2.6 g/dL (1.3-4.6); Glucose 470 mg/dL (65-115); Lipase 21 U/L (13-60); Osmolality Calculated 297 mOsm/kg (285-295); Potassium 4.2 mmol/L (3.5-5.1); Sodium 135 mmol/L (136-145); Total Bilirubin 0.2 mg/dL (0.15-1.2); Total Protein 6.3 g/dL (6.6-8.7)
[2019-10-27 14:10] LABS: Troponin(5th) Baseline 18 ng/L (0-15)
[2019-10-27] MEDS: HYDROcodone-acetaminophen 5-325 mg Tablet 1 TAB PO (14:50)
[2019-10-27] MEDS: insulin regular-human 100 units/1 mL 10 UNIT IVP ×2 (14:50→15:33)
[2019-10-27 15:12] VITALS: BP 180/85; PULSE 74; RESP 18; O2SAT 98
[2019-10-27 15:18] LABS: Glucose Point of Care 414 mg/dL (70-110)
--- NOTE | 2019-10-27 15:19 | ECG_ITS ---
[facility] Test Date: 2019-10-27 Pat Name: Castro Coley Department: Room: Gender: Male Computer Tester: : 1940 Requested By: Rohith Denney Order Number: [id number] Eduardo MD: Rubi Garcia M.D. Measurements Intervals [place] Rate: 70 P: 54 UT: 164 QRS: -21 QRSD: 94 T: 65 QT: 387 QTc: 418 Interpretive Statements SINUS RHYTHM BORDERLINE LEFT AXIS DEVIATION [QRS AXIS < -20] Compared to ECG 10/27/2019 13:38:20 No significant changes Electronically Signed On 10-27-2019 17:17:09 CDT by Rubi Garcia M.D. [id number]
[2019-10-27 15:32] LABS: Urine Appearance Hazy (CLEAR)
[2019-10-27 15:33] LABS: Add Urine Microscopic? YES; Bilirubin Urine Neg (NEGATIVE); Blood Urine Neg (Negative); Glucose Urine UA 4+ (Normal); Ketones Urine Negative (Negative); Leukocyte Esterase Urine Negative (Negative); Nitrate Urine Negative (Negative); Protein Urine Neg (Negative); Specific Gravity, Urine 1.015 (1.005-1.030); Urine Color Straw (Yellow); Urobilinogen Urine Norm (Negative); pH Urine 7 (5-7)
[2019-10-27 15:40] LABS: Add Urine Culture? No; RBC Urine 0-4 /hpf (0-2)
[2019-10-27 16:16] LABS: Troponin 5 2HR 13.69 ng/L (0-15)
[2019-10-27 16:22] VITALS: BP 164/74; PULSE 87; RESP 18; O2SAT 96
[2019-10-27 16:34] LABS: Troponin 5 2HR Delta -4.31 ABS# (0-10)
== END 2019-10-27 16:51 | disposition home or self-care (01) ==
PROVIDERS: Emergency Provider Family Medicine; PCP Family Medicine
DX: M25.552 Pain in left hip (principal); Z79.82 Long term (current) use of aspirin; Z79.4 Long term (current) use of insulin; W01.0XXA Fall on same level from slipping, tripping and stumbling without subsequent striking against object, initial encounter; Y92.129 Unspecified place in nursing home as the place of occurrence of the external cause; J44.9 Chronic obstructive pulmonary disease, unspecified; E11.9 Type 2 diabetes mellitus without complications; Z87.891 Personal history of nicotine dependence
CPT/HCPCS: 12345; 36415; 36416; 70450; 73502; 80053; 81001; 81003; 82009; 82550; 82962; 83605; 83690; 84484; 85025; 93005; 96374; 96375; 96376; 99283; 99284; J1815

== ENCOUNTER 2019-10-29 13:39 | Inpatient (IN) | payer MEDICARE, MEDICAID, SELFPAY ==
[2019-10-29] VITALS (8 sets, daily range): BP systolic 111–162; BP diastolic 72–90; PULSE 74–105; RESP 16–20; TEMP 36.8–37.3; O2SAT 92–100; BMI 24.3
--- NOTE | 2019-10-29 13:47 | CTR_ITS ---
PROCEDURE INFORMATION: Exam: CT Left Lower Extremity Without Contrast, Hip Exam date and time: 10/29/2019 2:01 PM Age: 79 years old Clinical indication: Injury or trauma; Fall; Initial encounter; Blunt trauma; Hip; Left; Additional info: Fall, pain TECHNIQUE: Imaging protocol: CT of the Left lower extremity without contrast was performed. Exam focused on the hip. Axial, coronal and sagittal reformatted images were created and reviewed. Radiation optimization: All CT scans at this facility use at least one of these dose optimization techniques: automated exposure control; mA and/or kV adjustment per patient size (includes targeted exams where dose is matched to clinical indication); or iterative reconstruction. COMPARISON: CR XR hip LT 2-3V wo/w pel* [id number] 10/27/2019 1:49 PM RADIATION DOSE METRICS: Total DLP (mGy-cm): 457.46 FINDINGS: Bones/joints: Osteopenia. Comminuted, minimally displaced fracture of the acetabulum, extending to the anterior and posterior farah, as well as the dome. Nondisplaced fracture lines extending to the superior and inferior pubic rami. No dislocation. Mild left hip joint osteoarthrosis. Small left hip joint hemarthrosis. Soft tissues: Moderate soft tissue swelling and blood products at the fracture site. CT/CT hip LT wo con* [id number] IMPRESSION: 1. Comminuted, minimally displaced acetabular fracture with extension to the superior and inferior pubic rami, as described above. 2. Additional findings, as above. Radiation Dose CTDIVOL = (mGy): DLP = 457.46 (mGy-cm)
--- NOTE | 2019-10-29 13:47 | CTR_ITS ---
PROCEDURE INFORMATION: Exam: CT Lumbar Spine Without Contrast Exam date and time: 10/29/2019 2:01 PM Age: 79 years old Clinical indication: Injury or trauma; Fall; Initial encounter; Blunt trauma (contusions or hematomas); Additional info: Fall, back and hip pain TECHNIQUE: Imaging protocol: Computed tomography images of the lumbar spine without contrast. Axial, coronal and sagittal reformatted images were created and reviewed. Radiation optimization: All CT scans at this facility use at least one of these dose optimization techniques: automated exposure control; mA and/or kV adjustment per patient size (includes targeted exams where dose is matched to clinical indication); or iterative reconstruction. COMPARISON: CR Lumbar Spine 2-3 views* [id number] 09/28/2013 8:41 AM RADIATION DOSE METRICS: Total DLP (mGy-cm): 1726.9 FINDINGS: Vertebrae: Osteopenia. Normal lumbar lordosis. Alignment anatomic. Minimal dextroscoliosis. Chronic deformity of the left L2, L3 and L4 transverse processes, as well as the right L4 transverse process. No CT evidence of acute fracture, dislocation or subluxation. Vertebral body heights maintained. Discs/Spinal canal/Neural foramina: Postsurgical changes associated with prior L5-S1 posterior fusion. Multilevel spondylosis, characterized by disc space narrowing, osteophytosis, shallow disc bulges and facet/ligamentous hypertrophy. Multilevel spinal canal and neural foraminal stenosis, most pronounced at L3-L4. Vasculature: Severe atherosclerotic disease. Soft tissues: Grossly unremarkable. CT/CT lumbar spine wo con* [id number]: 1. No CT evidence of acute lumbar spine traumatic injury. 2. Additional findings, as above. Radiation Dose CTDIVOL = (mGy): DLP = 1726.9 (mGy-cm)
[2019-10-29] MEDS: HYDROcodone-acetaminophen 5-325 mg Tablet 1 TAB PO ×2 (13:53→22:23)
--- NOTE | 2019-10-29 14:04 | W.ED.FALL ---
HPI - Fall General: Chief Complaint: Fall Stated Complaint: HIP PAIN Time Seen by Provider: 10/29/19 13:46 History of Present Illness: HPI Narrative: This patient is a 79-year-old male presenting today with left hip pain. He fell a few days ago and was seen in the ED 2 days ago for the fall. He is unable to provide a very detailed history of how he fell. He does have a history of foot drop on his left leg and is supposed to wear a brace. He says his left leg gives out on him sometimes. He is not sure if that is what caused his fall. He had x-rays of his left hip and a CT of his head on his prior visit. He is upset because he said he was not given any pain medicine or muscle relaxers or anything. He returns today due to continued severe pain in his lower back and left hip. He said he is not able to walk or weight-bear because of this pain. complaint: fall Onset (ago): day(s) (4) Fall from: standing Associated symptoms-after fall: Denies abdominal pain, chest pain, headache(s) or neck pain Review of Systems General: Reports: 10 or more systems reviewed and unremarkable except in HPI and below Const: Denies: fever(s), chills, fatigue or malaise Eyes: Denies: change in vision ENMT: Denies: odynophagia Card: Denies: chest pain or swelling of feet/ankles Resp: Denies: dyspnea, productive cough or non-productive cough GI: Denies: abdominal pain, nausea or vomiting : Denies: flank pain Musc: Reports: back pain and joint pain (Left hip); Denies: neck pain Skin/Breast: Denies: rash Neuro: Reports: other (Patient reports short-term memory problems due to what he thinks was a prior stroke several months ago. He did not see a physician for this.); Denies: headache(s), numbness in extremities or weakness in extremities Cipriano/Lymph: Denies: easy bruising or easy bleeding PFS ED PFSH: Medical History (Updated 10/29/19 @ 16:11 by Nikolas Cardona MD) Constipation COPD (chronic obstructive pulmonary disease) Diabetes mellitus, type II Perineal abscess Surgical History (Updated 10/29/19 @ 16:11 by Nikolas Cardona MD) History of back surgery History of carpal tunnel release of both wrists History of neck surgery S/P excisional debridement Family History Mother , AT AGE 65 Cancer Father , IN HIS 90'S No problems noted. Denies family history of Anesthesia complication Bleeding disorder Social History (Updated 10/29/19 @ 16:11 by Nikolas Cardona MD) Smoking and tobacco status: former smoker Alcohol intake: current Alcohol intake frequency: few times a month Substance/Drug Use: never Marital status: History of recent travel: No Physical Exam Const: COMMON NORMALS: no acute distress, patient oriented x3, no limitations and alert GENERAL APPEARANCE: cooperative and comfortable HENMT: HEAD & SCALP: normal to inspection FACE & SINUS: ecchymosis (Ecchymosis and mild swelling around the left eye consistent with history of fall 4 days ago.) Eye: GENERAL EYE: appearance normal, both eyes and all related structures Neck/C-Spine: COMMON NORMALS: supple, no meningeal signs and no JVD Chest: COMMONS NORMALS: normal inspection of the chest Resp: COMMON NORMALS: normal respiratory effort, No use of accessory muscles and clear to auscultation bilaterally AUSCULTATION: clear to auscultation bilaterally Cardio: COMMON NORMALS: no JVD, regular rate, regular rhythm and No murmurs present (Cardio) RATE: regular rate RHYTHM: regular rhythm GI: COMMON NORMALS: Normal to inspection, nondistended, normoactive bowel sounds present, Soft to palpation and non-tender INSPECTION: Yes normal to inspection AUSCULTATION: Yes normoactive bowel sounds PALPATION: Yes Soft to palpation Back/Pelvis: COMMON NORMALS: thoracic and lumbar spine normal to inspection LUMBAR SPINE/LOWER BACK: Yes normal to inspection (Generalized tenderness on the left lumbar/sacroiliac area) Extremity: COMMON NORMALS: normal to inspection LEFT LOWER EXTREMITY: Yes hip joint (No deformity of the hip joint. Some pain with range of motion of the hip.) and Yes lower leg (Foot drop which patient says he has had for quite some time.) Neuro: COMMON NORMALS: patient oriented x3, moves all extremities, no focal motor deficits and no sensory deficits noted SENSORIUM/ORIENTATION: Yes alert MENINGEAL SIGNS: Yes no meningeal signs Psych: COMMON NORMALS: mental status grossly normal, cooperative and normal affect Skin: COMMON NORMALS: no rashes or lesions noted and turgor normal GENERAL SKIN EXAM: no rashes or lesions noted and turgor normal Course Consultations: Consultation #1: Dr. Leon. Recommends toe-touch weightbearing with a walker or crutches. He advises that there is nothing for him to do surgically. He recommended letting the patient go home or being placed in a detention. I had physical therapy come to evaluate the patient with a walker and he was absolutely unable to ambulate. He has no help at home as he lives alone and has no close family. His neighbor is been helping him but is not going to be able to be there all the time. halfway placement this afternoon is not likely to happen. Consulted Dr. Cardona and he will admit the patient for pain control and further planning for his home care. Time: 15:38 Vital Signs: Vital signs: Vital Signs Temperature 98.5 F 10/29/19 16:08 Pulse Rate 101 H 10/29/19 16:08 Respiratory Rate 20 H 10/29/19 16:08 Blood Pressure 162/90 10/29/19 16:08 Pulse Oximetry 100 10/29/19 16:08 MDM - Fall Lab Data: Labs: Lab Results 10/29/19 10/29/19 10/29/19 Range/Units 14:54 14:54 14:54 WBC 6.7 (4.0-10.0) 10^3/ uL RBC 3.89 L (4.1-5.3) 10^6/u L Hgb 12.3 (11.7-16.6) g/dL Hct 36.5 L (42.0-52.0) % MCV 93.8 (80-94) fL MCH 31.6 (28.0-34.0) pg MCHC 33.7 (30.0-36.0) g/dL RDW 12.5 (12.1-15.1) % Plt Count 173 (130-400) 10^3/c mm MPV 10.4 (7.4-10.4) fL Neut % (Auto) 82.3 % Lymph % (Auto) 11.3 % [place] % (Auto) 4.5 % Eos % (Auto) 0.9 % Baso % (Auto) 0.4 % Neut # (Auto) 5.54 (1.8-7.7) 10^3/u L Lymph # (Auto) 0.8 (0.8-4.8) 10^3/u L [place] # (Auto) 0.3 (0.2-0.9) 10^3/u L Eos # (Auto) 0.1 (0.0-0.8) 10^3/u L Baso # (Auto) 0.0 (0.0-0.1) 10^3/u L Nucleated RBC % (a uto) 0 % Nucleated RBCs # 0.0 /100WBC Sodium 136 (136-145) mmol/L Potassium 4.0 (3.5-5.1) mmol/L Chloride 99 (98-107) mmol/L Carbon Dioxide 24 (22-29) mmol/L Anion Gap 17.0 (5-19) BUN 21 (8-23) mg/dL Creatinine 1.5 H (0.7-1.2) mg/dL Glucose 391 H (65-115) mg/dL Calculated Osmolal ity 295 (285-295) mOsm/k g Calcium 9.3 (8.5-10.5) mg/dL Total Bilirubin 0.4 (0.15-1.2) mg/dL AST 11 (0-40) U/L ALT 12 (0-41) U/L Alkaline Phosphata se 83 (40-130) IU/L Total Protein 6.2 L (6.6-8.7) g/dL Albumin 3.6 (3.5-5.2) g/dL Globulin 2.6 (1.3-4.6) g/dL Blood Type O Positive Rho(D) Type Positive Discharge Plan Discharge Patient Disposition: Admitted As Inpatient Admit Provider: Nikolas Cardona Discharge Date/Time: 10/29/19 16:09 Coding Level of Care Code ED Radio Equipment Repairer for Chg Fwd Exam Comprehensive
[2019-10-29 15:13] LABS: Basophils % 0.4 %; Eosinophils # 0.1 10^3/uL (0.0-0.8); Eosinophils % 0.9 %; Hematocrit 36.5 % (42.0-52.0); Hemoglobin 12.3 g/dL (11.7-16.6); Lymphocytes # 0.8 10^3/uL (0.8-4.8); Lymphocytes % 11.3 %; Mean Corpuscular HGB Conc 33.7 g/dL (30.0-36.0); Mean Corpuscular Hemoglobin 31.6 pg (28.0-34.0); Mean Corpuscular Volume 93.8 fL (80-94); Mean Platelet Volume 10.4 fL (7.4-10.4); Monocytes # 0.3 10^3/uL (0.2-0.9); Monocytes % 4.5 %; Neutrophils # 5.54 10^3/uL (1.8-7.7); Neutrophils % 82.3 %; Nucleated Red Blood Cells % 0 %; Platelet Count 173 10^3/cmm (130-400); Red Blood Count 3.89 10^6/uL (4.1-5.3); Red Cell Distribution Width 12.5 % (12.1-15.1); White Blood Count 6.7 10^3/uL (4.0-10.0)
[2019-10-29 15:38] LABS: Alanine Aminotransferase 12 U/L (0-41); Albumin Level 3.6 g/dL (3.5-5.2); Alkaline Phosphatase 83 IU/L (40-130); Aspartate Amino Transferase 11 U/L (0-40); Blood Urea Nitrogen 21 mg/dL (8-23); Calcium 9.3 mg/dL (8.5-10.5); Carbon Dioxide 24 mmol/L (22-29); Chloride 99 mmol/L (98-107); Globulin 2.6 g/dL (1.3-4.6); Glucose 391 mg/dL (65-115); Osmolality Calculated 295 mOsm/kg (285-295); Sodium 136 mmol/L (136-145); Total Bilirubin 0.4 mg/dL (0.15-1.2); Total Protein 6.2 g/dL (6.6-8.7)
[2019-10-29] MEDS: sodium chloride 0.9% 500 ML 999 ML IV (15:52)
--- NOTE | 2019-10-29 16:07 | PM.HP ---
Providers/Chief Complaint Primary Care Provider: Nick Florian MD Chief Complaint: HIP PAIN History of Present Illness Castro Coley is a 79 year old male who presented with a fall to the emergency department on October 26. He reports he cannot really recall the fall and believes he might of lost consciousness. At the time he was going to a nursing facility to visit his friend and fell at the nursing facility. He had left hip pain, and sustained a laceration to his forehead on the left. After evaluation in the emergency department he was released to go home. He reports at home he is not been able to get out of bed. He reports he has continued left hip pain and is unable to bear any substantial weight. He denies any nausea or vomiting. He denies any dizziness. He reports he lives alone which poses an issue as well. He denies any fever cough or any COVID exposure. He denies any recent illness. He reports no recurrent syncopal episodes. EKGs performed during that ER visit demonstrated normal sinus rhythm, left axis deviation, nonspecific changes. Review of Systems General: Reports: 10 or more systems reviewed and unremarkable except in HPI and below Const: Denies: fever(s) or chills Eyes: Denies: change in vision ENMT: Denies: throat pain Card: Denies: chest pain Resp: Denies: dyspnea GI: Reports: heartburn; Denies: abdominal pain : Reports: difficulty urinating; Denies: flank pain Musc: Denies: neck pain Skin/Breast: Denies: rash Neuro: Denies: headache(s) Psych: Denies: anxiety or depression Endo: Denies: polyuria Cipriano/Lymph: Denies: easy bruising All/Imm: Denies: urticaria Medications/Allergies Home Medications Medication Instructions Recorded Confirmed Last Taken Type acetaminophen [Tylenol Extra 500 - 1,000 mg PO PRN 08/10/19 10/29/19 Unknown History Strength] aspirin [Aspir-81] 81 mg PO DAILY 08/10/19 10/29/19 Unknown History cilostazol 100 mg PO BID 08/10/19 10/29/19 Unknown History tamsulosin 0.4 mg PO BEDTIME 08/10/19 10/29/19 Unknown History albuterol sulfate [Proventil HFA] 2 inh INHALATION Q6H PRN #18 gm 08/25/19 10/29/19 Unknown Rx budesonide-formoterol [Symbicort] 2 inh INHALATION BID #10.2 gm 08/25/19 10/29/19 Unknown Rx cetirizine 10 mg tablet 10 mg PO DAILY tab 08/29/19 10/29/19 Unknown History docusate sodium [Colace] 100 mg PO BID #30 cap 09/02/19 10/29/19 Unknown Rx bisacodyl 10 mg rectal suppository 10 mg PA DAILY PRN 09/13/19 10/29/19 Unknown History honey 80 % topical gel 1 applic TOPICAL DAILY 09/13/19 10/29/19 Unknown History hydrocodone 5 mg-acetaminophen 325 1 tab PO Q6H PRN tab 09/13/19 10/29/19 Unknown History mg tablet insulin aspart U-100 100 unit/mL See Rx Instructions SUBCUT .PRN ml 09/13/19 10/29/19 Unknown History (3 mL) subcutaneous pen magnesium hydroxide 400 mg/5 mL 5 ml PO DAILY PRN 09/13/19 10/29/19 Unknown History oral suspension naproxen 375 mg tablet 750 mg PO BID PRN tab 09/13/19 10/29/19 Unknown History insulin glargine [Lantus Solostar 0 unit SUBCUT . DIRECTED 10/27/19 10/29/19 Unknown History U-100 Insulin] insulin lispro [Humalog KwikPen 0 unit SUBCUT . DIRECTED 10/27/19 10/29/19 Unknown History Insulin] prednisone 20 mg PO DAILY 10/27/19 10/29/19 Unknown History Allergies Allergy/AdvReac Type Severity Reaction Status Date / Time ibuprofen Allergy Mild Nausea Verified 10/07/19 12:11 tetanus toxoid, adsorbed Allergy Unknown Verified 10/07/19 12:11 PFSH Acute PFSH: Medical History (Updated 10/29/19 @ 16:19 by Nikolas Cardona MD) Constipation COPD (chronic obstructive pulmonary disease) Diabetes mellitus, type II Perineal abscess Surgical History (Updated 10/29/19 @ 16:11 by Nikolas Cardona MD) History of back surgery History of carpal tunnel release of both wrists History of neck surgery S/P excisional debridement Family History Mother , AT AGE 65 Cancer Father , IN HIS 90'S No problems noted. Denies family history of Anesthesia complication Bleeding disorder Social History (Updated 10/29/19 @ 16:11 by Nikolas Cardona MD) Smoking and tobacco status: former smoker Alcohol intake: current Alcohol intake frequency: few times a month Substance/Drug Use: never Marital status: History of recent travel: No Vitals/I&O/Wt Last Vital Signs Temp 98.5 F 10/29/19 13:41 Pulse 101 H 10/29/19 15:57 Resp 20 H 10/29/19 15:57 BP 162/90 10/29/19 15:57 Pulse Ox 100 10/29/19 15:57 Weight last 48 hrs Weight 77.111 kg Physical Exam Narrative: EXAM NARRATIVE: General exam demonstrates an elderly white male, in no apparent distress HEENT: Pupils are equally round. Laceration site, bruising with hematoma are noted left forehead. Oropharynx is clear. False dentition is noted Neck is supple, no lymphadenopathy or thyromegaly Cardiovascular regular rate and rhythm without murmur. No S3 or S4 Lungs clear but with diminished breath sounds bilaterally. No crackles or wheezes Abdomen is soft, positive bowel sounds. No obvious organomegaly was deferred Extremities no cyanosis clubbing or edema. Pain with movement of the left leg, in the left groin area. Distal pulses are intact. Left foot drop is present, which the patient reports is old. Skin no rash Neuro no obvious focal deficits other than left foot drop documented above Data : 10/29/19 14:54 10/29/19 14:54 Other data: LFTs within normal limits. Urinalysis done 2 days ago demonstrated no obvious infection. 0-4 reds, [address] of head done 2 days ago demonstrated no hemorrhage, left frontal scalp hematoma. A&P Assessment and plan (1) Left acetabular fracture: Regular admission. Comminuted and minimally displaced with extension to the superior and inferior pubic rami Orthopedic consultation Physical therapy evaluation Pain control May need retirement facility placement Status: Acute (2) Acute kidney injury: Bladder scan to rule out urinary retention Check CK as he reports he has not been able to get out of bed in the last 2 days and had fall preceding this Hydration overnight Status: Acute (3) Fall: Etiology unknown. Cannot rule out syncopal episode Place on telemetry Check TSH Status: Acute (4) Left parietal scalp hematoma: Appears to be resolving Status: Acute Additional A&P Information COPD, no evidence of exacerbation. Nebs as needed. Type 2 diabetes. Sliding scale insulin DJD Allow natural . Discussed with patient. Heparin for DVT prophylaxis Attestations Medical Necessity Statement*: Will need greater than 2 midnight for gait training to prevent further falls in this patient with history of serious injury secondary to fall as well as treatment and evaluation of acute kidney injury. Time Spent in Patient Care: Greater than 35 minutes Coding Level of Care Code Acute Press Tender Smoke Signal for Yasmeen Fwd Diagnoses Left acetabular fracture S32.402A Acute kidney injury N17.9 Fall W19.XXXA Left parietal scalp hematoma S00.03XA
[2019-10-29 16:56] LABS: Glucose Point of Care 347 mg/dL (70-110)
[2019-10-29 17:13] LABS: Add Urine Microscopic? YES; Bilirubin Urine 1+ (NEGATIVE); Blood Urine Neg (Negative); Glucose Urine UA 4+ (Normal); Ketones Urine 1+ (Negative); Leukocyte Esterase Urine 2+ (Negative); Nitrate Urine Negative (Negative); Protein Urine Neg (Negative); Specific Gravity, Urine 1.025 (1.005-1.030); Squamous Epithelial Cell Urine 15-25 (0-5); Urine Appearance Hazy (CLEAR); Urine Color Straw (Yellow); Urobilinogen Urine Norm (Negative); WBC Urine 15-25 /hpf (0-5); pH Urine 5 (5-7)
[2019-10-29 17:14] LABS: Add Urine Culture? No; Bacteria Urine 1+
[2019-10-29] MEDS: heparin 5,000 unit/mL INJ 1 mL 5000 UNIT SUBCUT (17:51)
[2019-10-29] MEDS: sodium chloride 0.9% 1,000 ML 75 ML IV (17:51)
[2019-10-29] MEDS: docusate sodium 100 mg Capsule PO (17:51)
[2019-10-29 18:09] LABS: Creatine Phosphokinase 57 U/L (39-308); Thyroid Stimulating Hormone 1.77 uIU/mL (0.27-4.20)
[2019-10-29 21:02] LABS: Glucose Point of Care 261 mg/dL (70-110)
[2019-10-29] MEDS: tamsulosin 0.4 mg Capsule PO (21:52)
[2019-10-30] VITALS (9 sets, daily range): BP systolic 109–173; BP diastolic 63–79; PULSE 57–90; RESP 16–18; TEMP 36.5–37.2; O2SAT 94–98
[2019-10-30 04:46] LABS: Basophils % 0.8 %; Eosinophils # 0.2 10^3/uL (0.0-0.8); Eosinophils % 4.9 %; Hematocrit 32.8 % (42.0-52.0); Hemoglobin 10.8 g/dL (11.7-16.6); Lymphocytes # 1.9 10^3/uL (0.8-4.8); Lymphocytes % 38.3 %; Mean Corpuscular HGB Conc 32.9 g/dL (30.0-36.0); Mean Corpuscular Hemoglobin 30.9 pg (28.0-34.0); Mean Platelet Volume 10.7 fL (7.4-10.4); Monocytes # 0.3 10^3/uL (0.2-0.9); Monocytes % 5.9 %; Neutrophils # 2.45 10^3/uL (1.8-7.7); Neutrophils % 49.7 %; Nucleated Red Blood Cells % 0 %; Platelet Count 153 10^3/cmm (130-400); Red Blood Count 3.49 10^6/uL (4.1-5.3); Red Cell Distribution Width 12.4 % (12.1-15.1); White Blood Count 4.9 10^3/uL (4.0-10.0)
[2019-10-30 04:59] LABS: Anion Gap 12.2 (5-19); Blood Urea Nitrogen 22 mg/dL (8-23); Calcium 8.8 mg/dL (8.5-10.5); Carbon Dioxide 25 mmol/L (22-29); Chloride 107 mmol/L (98-107); Creatinine Clr Calc Pharmacy 81.6423; Glucose 111 mg/dL (65-115); Osmolality Calculated 289 mOsm/kg (285-295); Potassium 3.2 mmol/L (3.5-5.1); Sodium 141 mmol/L (136-145)
[2019-10-30] MEDS: heparin 5,000 unit/mL INJ 1 mL 5000 UNIT SUBCUT ×2 (05:53→16:33)
[2019-10-30] MEDS: sodium chloride 0.9% 1,000 ML 75 ML IV (05:53)
[2019-10-30 06:55] LABS: Glucose Point of Care 120 mg/dL (70-110)
[2019-10-30] MEDS: HYDROcodone-acetaminophen 5-325 mg Tablet 1 TAB PO ×3 (08:21→21:00)
[2019-10-30] MEDS: aspirin 81 mg EC Tablet PO (08:21)
[2019-10-30] MEDS: docusate sodium 100 mg Capsule PO ×2 (08:22→17:12)
[2019-10-30] MEDS: potassium chloride ER 10 mEq Tablet 40 MEQ PO (09:38)
--- NOTE | 2019-10-30 10:45 | P.PN_ITS ---
Subjective Subjective: Interval history: Castro reports he has some pain, but otherwise doing okay. No nausea. Medications: Reviewed: Yes Vitals/I&O/Wt Last Vital Signs Temp 97.9 F 10/30/19 07:26 Pulse 70 10/30/19 09:29 Resp 16 10/30/19 09:29 BP 173/79 10/30/19 07:26 Pulse Ox 95 10/30/19 09:29 10/29/19 10/30/19 10/30/19 22:59 06:59 14:59 Intake Total 980 / 980 1102.5 / 2082.5 360 / 360 Output Total 620 / 620 500 / 1120 Balance 360 / 360 602.5 / 962.5 360 / 360 Weight last 48 hrs Weight 77.111 kg Physical Exam Narrative: EXAM NARRATIVE: General exam no apparent distress Cardiovascular regular rate and rhythm without murmur. No S3 or S4 Lungs clear but with diminished breath sounds bilaterally. No crackles or wheezes Abdomen is soft, positive bowel sounds. No obvious organomegaly Extremities no cyanosis clubbing or edema. Pain with any range of motion of the left leg Urinary Catheter Management^: Padron: Cath Placed During This Visit: yes Reason for Continuing Indwelling Catheter: Required Immobilization for Trauma or Surgery or Anesthesia Urinary Catheter Date of Insertion: 10/29/19 Urinary Catheter Time of Insertion: 18:55 Data : 10/30/19 03:55 10/30/19 03:55 A&P Assessment and plan (1) Left acetabular fracture: Comminuted and minimally displaced with extension to the superior and inferior pubic rami Await orthopedic consultation Physical therapy evaluation Pain control with hydrocodone, morphine for breakthrough pain May need nursing home facility placement Status: Acute (2) Acute kidney injury: Bladder scan demonstrated significant urinary retention. Padron was placed. Continue Flomax Check CK as he reports he has not been able to get out of bed in the last 2 days and had fall preceding this. CK was not elevated Renal function has corrected. Discontinue IV fluids. Status: Acute (3) Fall: Etiology unknown. Cannot rule out syncopal episode On telemetry currently. No arrhythmias noted. TSH checked and normal. Status: Acute (4) Left parietal scalp hematoma: Appears to be resolving Status: Acute Additional A&P Information Hypokalemia, supplement. COPD, no evidence of exacerbation. Nebs as needed. Type 2 diabetes. Sliding scale insulin DJD Allow natural . Discussed with patient. Heparin for DVT prophylaxis Attestations Medical Necessity Statement*: Needs continued hospitalization for physical therapy evaluation orthopedic evaluation secondary to acetabular fracture making it unsafe for ambulation with significant fall and further injury risk. Coding Level of Care Code Acute Bridges And Buildings Supervisor for g Fwd Diagnoses Left acetabular fracture S32.402A Acute kidney injury N17.9 Fall W19.XXXA Left parietal scalp hematoma S00.03XA
[2019-10-30 11:56] LABS: Glucose Point of Care 325 mg/dL (70-110)
[2019-10-30] MEDS: morphine 4 mg/mL SDV 1 mL 2 MG IVP (16:34)
[2019-10-30 16:44] LABS: Glucose Point of Care 303 mg/dL (70-110)
--- NOTE | 2019-10-30 17:39 | PM.CONSULT ---
Providers/Reason For Consult Consulting Physican/Specialty*: Wang Leon MD, orthopedic surgery Reason for Consult*: Left acetabular fracture Attending Physician: Nikolas Cardona MD Primary Care Provider: Nick Florian MD History of Present Illness History of Present Illness Castro Coley is a 79 year old male who initially presented to the emergency room on 10/27/2019. He believes he might of lost consciousness that time falling hitting his head and developing pain in his left hip. After reevaluation emergency room he was released for discharge. He stated since discharge he was unable to get out of bed prompting his reevaluation yesterday. There a CT scan was obtained revealing an acetabular fracture. The patient is admitted for management of fracture and anticipated placement Meds/Allergies Home Medications and Allergies Home Medications Medication Instructions Recorded Confirmed Last Taken Type acetaminophen [Tylenol Extra 500 - 1,000 mg PO PRN 08/10/19 10/29/19 Unknown History Strength] aspirin [Aspir-81] 81 mg PO DAILY 08/10/19 10/29/19 Unknown History cilostazol 100 mg PO BID 08/10/19 10/29/19 Unknown History tamsulosin 0.4 mg PO BEDTIME 08/10/19 10/29/19 Unknown History albuterol sulfate [Proventil HFA] 2 inh INHALATION Q6H PRN #18 gm 08/25/19 10/29/19 Unknown Rx budesonide-formoterol [Symbicort] 2 inh INHALATION BID #10.2 gm 08/25/19 10/29/19 Unknown Rx cetirizine 10 mg tablet 10 mg PO DAILY tab 08/29/19 10/29/19 Unknown History docusate sodium [Colace] 100 mg PO BID #30 cap 09/02/19 10/29/19 Unknown Rx bisacodyl 10 mg rectal suppository 10 mg NC DAILY PRN 09/13/19 10/29/19 Unknown History honey 80 % topical gel 1 applic TOPICAL DAILY 09/13/19 10/29/19 Unknown History hydrocodone 5 mg-acetaminophen 325 1 tab PO Q6H PRN tab 09/13/19 10/29/19 Unknown History mg tablet insulin aspart U-100 100 unit/mL See Rx Instructions SUBCUT .PRN ml 09/13/19 10/29/19 Unknown History (3 mL) subcutaneous pen magnesium hydroxide 400 mg/5 mL 5 ml PO DAILY PRN 09/13/19 10/29/19 Unknown History oral suspension naproxen 375 mg tablet 750 mg PO BID PRN tab 09/13/19 10/29/19 Unknown History insulin glargine [Lantus Solostar 0 unit SUBCUT . DIRECTED 10/27/19 10/29/19 Unknown History U-100 Insulin] insulin lispro [Humalog KwikPen 0 unit SUBCUT . DIRECTED 10/27/19 10/29/19 Unknown History Insulin] prednisone 20 mg PO DAILY 10/27/19 10/29/19 Unknown History Allergies Allergy/AdvReac Type Severity Reaction Status Date / Time ibuprofen Allergy Mild Nausea Verified 10/07/19 12:11 tetanus toxoid, adsorbed Allergy Unknown Verified 10/07/19 12:11 Current Medications Current Medications Generic Name Dose Route Start Last Admin Trade Name Freq PRN Reason Stop Dose Admin Hydrocodone Bitart/Acetaminophen 1 tab 10/29/19 16:40 10/30/19 15:51 Ewing 5-325 Mg PO 1 tab Q4H PRN Administration MODERATE TO SEVERE PAIN Aspirin 81 mg 10/30/19 09:00 10/30/19 08:21 Aspirin Ec PO 81 mg DAILY MARIAJOSE Administration Docusate Sodium 100 mg 10/29/19 18:00 10/30/19 17:12 Colace PO 100 mg BID MARIAJOSE Administration Heparin Sodium (Beef Lung) 5,000 unit 10/29/19 17:00 10/30/19 16:33 Heparin SUBCUT 5,000 unit Q12H MARIAJOSE Administration Insulin Aspart 0 unit 10/29/19 18:00 10/30/19 17:13 Novolog SUBCUT 12 unit WM&BEDTIME MARIAJOSE Administration Protocol Morphine Sulfate 2 mg 10/29/19 16:40 10/30/19 16:34 Morphine IVP 2 mg Q4H PRN Administration SEVERE PAIN Fluticasone/Salmeterol 1 puff 10/29/19 18:00 10/30/19 09:27 Advair Diskus 250-50 INHALATION 1 puff BID MARIAJOSE Administration Tamsulosin HCl 0.4 mg 10/29/19 21:00 10/29/19 21:52 Flomax PO 0.4 mg BEDTIME MARIAJOSE Administration PFSH Acute PFSH: Medical History (Updated 10/29/19 @ 16:19 by Nikolas Cardona MD) Constipation COPD (chronic obstructive pulmonary disease) Diabetes mellitus, type II Perineal abscess Surgical History (Updated 10/29/19 @ 16:11 by Nikolas Cardona MD) History of back surgery History of carpal tunnel release of both wrists History of neck surgery S/P excisional debridement Family History Mother , AT AGE 65 Cancer Father , IN HIS 90'S No problems noted. Denies family history of Anesthesia complication Bleeding disorder Social History (Updated 10/29/19 @ 16:11 by Nikolas Cardona MD) Smoking and tobacco status: former smoker Alcohol intake: current Alcohol intake frequency: few times a month Substance/Drug Use: never Marital status: History of recent travel: No Vitals/I&O/Wt Last Vital Signs Temp 98.8 F 10/30/19 15:13 Pulse 90 10/30/19 15:13 Resp 18 10/30/19 16:34 BP 109/71 10/30/19 15:13 Pulse Ox 97 10/30/19 15:13 10/30/19 10/30/19 10/30/19 06:59 14:59 22:59 Intake Total 1102.5 / 2082.5 600 / 600 Output Total 500 / 1120 1700 / 1700 Balance 602.5 / 962.5 -1100 / -1100 Weight last 48 hrs Weight 170 lb Physical Exam Narrative: EXAM NARRATIVE: Patient is extremely hard of hearing but does seem to answer questions appropriately. He as a area of ecchymoses about his left orbit and abrasion over his left forehead. The patient has pain with any efforts at flexion internal, or external rotation of the left hip. There is no palpable tenderness about the proximal femur knee ankle or elsewhere on the left lower extremity We will flexes his toes and his ankle on the left. He has a palpable left dorsalis pedis pulse. Has no pain with motion or palpation of either upper extremity or his right lower extremity. Urinary Catheter Management^: Padron: Cath Placed During This Visit: yes Reason for Continuing Indwelling Catheter: Required Immobilization for Trauma or Surgery or Anesthesia Urinary Catheter Date of Insertion: 10/29/19 Urinary Catheter Time of Insertion: 18:55 Data Imaging^: Other CT: My impression: I reviewed his CT scan of the left hip. The patient appears have a nondisplaced acetabular fracture consisting of transverse posterior wall pattern. A&P Assessment and plan (1) Left acetabular fracture: Patient's fracture is nondisplaced. At 79 years of age I certainly would suggest on nonoperative treatment. The patient can be mobilized with therapy. He will be touchdown weightbearing on the left lower extremity. He will maintain protected weightbearing for 6weeks before we advance to full weightbearing. Anticipate need for retirement transfer. I discussed with him the risk with any care of acetabular fracture. Discussed the risk of displacement the possible need for future surgery, however, I think this is quite unlikely in this case. I suggested the possibility of continued pain and progressive degenerative changes. I discussed risk of prolonged recumbency including deep venous thromboses, skin breakdown, and pneumonia.. We will make every effort to mobilize him as quickly as possible Status: Acute Coding Level of Care Code Acute Stereo Equipment Installer for [facility] Amanda Diagnoses Left acetabular fracture S32.402A
[2019-10-30] MEDS: tamsulosin 0.4 mg Capsule PO (20:49)
[2019-10-30 20:59] LABS: Glucose Point of Care 273 mg/dL (70-110)
[2019-10-31] VITALS (9 sets, daily range): BP systolic 112–172; BP diastolic 73–92; PULSE 68–107; RESP 13–20; TEMP 36.4–37.1; O2SAT 93–97
[2019-10-31 04:07] LABS: Basophils % 0.7 %; Eosinophils # 0.2 10^3/uL (0.0-0.8); Eosinophils % 3.6 %; Hematocrit 35.4 % (42.0-52.0); Lymphocytes # 1.9 10^3/uL (0.8-4.8); Lymphocytes % 34.4 %; Mean Corpuscular HGB Conc 33.9 g/dL (30.0-36.0); Mean Corpuscular Hemoglobin 31.7 pg (28.0-34.0); Mean Corpuscular Volume 93.4 fL (80-94); Mean Platelet Volume 10.2 fL (7.4-10.4); Monocytes # 0.3 10^3/uL (0.2-0.9); Neutrophils # 3.02 10^3/uL (1.8-7.7); Neutrophils % 54.8 %; Nucleated Red Blood Cells % 0 %; Platelet Count 165 10^3/cmm (130-400); Red Blood Count 3.79 10^6/uL (4.1-5.3); Red Cell Distribution Width 12.2 % (12.1-15.1); White Blood Count 5.5 10^3/uL (4.0-10.0)
[2019-10-31 04:24] LABS: Anion Gap 12.7 (5-19); Blood Urea Nitrogen 17 mg/dL (8-23); Calcium 9.2 mg/dL (8.5-10.5); Carbon Dioxide 26 mmol/L (22-29); Chloride 103 mmol/L (98-107); Creatinine Clr Calc Pharmacy 81.6423; Glucose 217 mg/dL (65-115); Magnesium 1.9 mg/dL (1.7-2.3); Osmolality Calculated 289 mOsm/kg (285-295); Potassium 3.7 mmol/L (3.5-5.1); Sodium 138 mmol/L (136-145)
[2019-10-31] MEDS: heparin 5,000 unit/mL INJ 1 mL 5000 UNIT SUBCUT ×2 (04:46→17:29)
[2019-10-31] MEDS: HYDROcodone-acetaminophen 5-325 mg Tablet 1 TAB PO ×3 (04:50→17:29)
[2019-10-31 06:35] LABS: Glucose Point of Care 286 mg/dL (70-110)
[2019-10-31] MEDS: aspirin 81 mg EC Tablet PO (09:03)
[2019-10-31] MEDS: docusate sodium 100 mg Capsule PO ×2 (09:03→17:29)
[2019-10-31 10:55] LABS: Glucose Point of Care 354 mg/dL (70-110)
[2019-10-31] MEDS: morphine 4 mg/mL SDV 1 mL 2 MG IVP (11:19)
--- NOTE | 2019-10-31 15:30 | PM.PN ---
Subjective Subjective: Interval history: Chart reviewed, VSS, had 2250 mL urine output overnight. Received 2 doses of [place] overnight for pain control. Sitting in chair by bedside, cannot seem to get comfortable and requesting to be assisted back to bed. Medications: Reviewed: Yes Medication Review Details: Active Medications Generic Name Dose Route Start Last Admin Trade Name Freq PRN Reason Stop Dose Admin Acetaminophen 650 mg 10/29/19 16:40 Tylenol PO Q6H PRN Mild/Mod Pain Or Temp >/= 101 Hydrocodone Bitart /Acetaminophen 1 tab 10/29/19 16:40 10/31/19 09:04 [place] 5-325 Mg PO 1 tab Q4H PRN Administration MODERATE TO SEVER E PAIN Albuterol/Ipratrop ium 3 ml 10/29/19 16:40 Duoneb INHALATION Q6H PRN SHORTNESS OF JAZLYN TH Aspirin 81 mg 10/30/19 09:00 10/31/19 09:03 Aspirin Ec PO 81 mg DAILY MARIAJOSE Administration Dextrose 25 ml 10/29/19 16:40 D50w IVP ONCE PRN hypoglycemia prot ocol Protocol Dextrose 50 ml 10/29/19 16:40 D50w IVP PRN PRN hypoglycemia prot ocol Protocol Docusate Sodium 100 mg 10/29/19 18:00 10/31/19 09:03 Colace PO 100 mg BID MARIAJOSE Administration Glucagon 1 mg 10/29/19 16:40 Glucagen IM ONCE PRN Adult Acute Hypog lycemia Prot. Protocol Heparin Sodium (Be ef Lung) 5,000 unit 10/29/19 17:00 10/31/19 04:46 Heparin SUBCUT 5,000 unit Q12H MARIAJOSE Administration Dextrose 500 mls @ 100 mls /hr 10/29/19 16:40 D5w IV ONCE PRN Adult Acute Hypog lycemia Prot Protocol Insulin Aspart 0 unit 10/29/19 18:00 10/31/19 11:22 Novolog SUBCUT 14 unit WM&BEDTIME MARIAJOSE Administration Protocol Morphine Sulfate 2 mg 10/29/19 16:40 10/31/19 11:19 Morphine IVP 2 mg Q4H PRN Administration SEVERE PAIN Naloxone HCl 0.1 mg 10/29/19 16:40 Narcan IVP Q2M PRN OPIATERV Ondansetron HCl 4 mg 10/29/19 16:40 Zofran IVP Q6H PRN vomiting, or N/V if npo Fluticasone/Salmet pepe 1 puff 10/29/19 18:00 10/31/19 09:43 Advair Diskus 25 0-50 INHALATION 1 puff BID MARIAJOSE Administration Tamsulosin HCl 0.4 mg 10/29/19 21:00 10/30/19 20:49 Flomax PO 0.4 mg BEDTIME MARIAJOSE Administration ibuprofen Allergy (Mild, Verified 10/07/19 12:11) Nausea tetanus toxoid, adsorbed Allergy (Verified 10/07/19 12:11) Unknown Vitals/I&O/Wt Last Vital Signs Temp 97.7 F 10/31/19 11:51 Pulse 107 H 10/31/19 11:51 Resp 16 10/31/19 11:51 BP 153/92 10/31/19 11:51 Pulse Ox 93 10/31/19 11:51 10/31/19 10/31/19 10/31/19 06:59 14:59 22:59 Intake Total 100 / 1030 600 / 600 Output Total 1500 / 3950 1000 / 1000 Balance -1400 / -2920 -400 / -400 Physical Exam Const: COMMON NORMALS: no acute distress, patient oriented x3 and alert GENERAL APPEARANCE: cooperative; not comfortable ORIENTATION/CONSCIOUSNESS: Yes awake HENMT: COMMON NORMALS: normocephalic, atraumatic and moist oral mucous membranes HEAD & SCALP: normocephalic and atraumatic GENERAL EAR: hearing grossly impaired Laterality: bilateral Eye: COMMON NORMALS: Equal, round and reactive pupils present, EOMs intact bilaterally and conjunctivae normal CONJUNCTIVA: Yes conjunctivae normal PUPIL: Yes Equal, round and reactive pupils present Neck/C-Spine: COMMON NORMALS: full ROM GENERAL: Yes normal visual inspection and Yes trachea midline Resp: COMMON NORMALS: normal respiratory effort, No retractions, No use of accessory muscles and clear to auscultation bilaterally EFFORT & INSPECTION: Yes able to speak in complete sentences, Yes symmetric chest movement and No tachypneic AUSCULTATION: clear to auscultation bilaterally Cardio: COMMON NORMALS: regular rate, regular rhythm, S1 normal heart sound present, S2 normal heart sound present and No murmurs present (Cardio) RATE: regular rate RHYTHM: regular rhythm HEART SOUNDS: S1 normal heart sound present and S2 normal heart sound present GI: COMMON NORMALS: Normal to inspection, nondistended, normoactive bowel sounds present, Soft to palpation and non-tender PALPATION: Yes Soft to palpation : BLADDER/KIDNEY EXAM: Yes catheter in place Catheter type (Male): urethral Extremity: COMMON NORMALS: normal to inspection, full ROM and no clubbing, cyanosis or edema; negative for no pedal edema Neuro: COMMON NORMALS: patient oriented x3, moves all extremities, no focal motor deficits, no sensory deficits noted and gait normal SENSORIUM/ORIENTATION: Yes alert Psych: COMMON NORMALS: mental status grossly normal, Normal thought process present, cooperative, normal affect and speech normal SPEECH: Yes normal speech THOUGHT PROCESS: Normal thought process present Skin: COMMON NORMALS: no jaundice, no petechiae and no mottling OTHER: -L periorbital hematoma; linear laceration over L eyebrow Urinary Catheter Management^: Padron: Cath Placed During This Visit: yes Reason for Continuing Indwelling Catheter: Required Immobilization for Trauma or Surgery or Anesthesia Urinary Catheter Date of Insertion: 10/29/19 Urinary Catheter Time of Insertion: 18:55 Data : 10/31/19 03:45 10/31/19 03:45 A&P Assessment and plan (1) Left acetabular fracture: -secondary to fall -imaging reviewed -fall precautions -Ortho consult by Dr. Leon appreciated; non-surgical management recommended, touchdown weight bearing on LLE -pain control as needed Status: Acute Qualifiers: Encounter type: initial encounter Fracture alignment: nondisplaced Fracture type: closed Sublocation of acetabulum: unspecified portion of acetabulum Qualified Code(s): S32.402A - Unspecified fracture of left acetabulum, initial encounter for closed fracture (2) Left parietal scalp hematoma: -secondary to fall, noted on CT head Status: Acute Qualifiers: Encounter type: initial encounter Qualified Code(s): S00.03XA - Contusion of scalp, initial encounter (3) Acute kidney injury: -noted urinary retention; has Padron catheter in place -continue Flomax -CPK wnl -off IVF with normalization of renal function -continue to monitor renal function Status: Resolved (4) Fall: -unclear etiology -telemetry monitoring -VSS; continue to monitor Status: Acute Qualifiers: Encounter type: initial encounter Qualified Code(s): W19.XXXA - Unspecified fall, initial encounter Additional A&P Information -IDDM type II; Accucheks, ISS, consistent carb diet as tolerated, hypoglycemia precautions -hx of COPD, no acute exacerbation; Duonebs PRN -DJD -Hypokalemia-resolved; replace K as needed -bowel regimen -DVT ppx with heparin -Dispo: [facility] pending prior auth -Code status: DNR/DNI Attestations Medical Necessity Statement*: Patient requires hospitalization for continued pain control, therapy, pending appropriate disposition. Time Spent in Patient Care: Greater than 35 minutes (>than 50% of time spent in counselling and/or direct pt care on unit). Coding Level of Care Code Acute Building Architectural Designer for g Fwd Exam Comprehensive Diagnoses Left acetabular fracture S32.402A Encounter type: initial encounter Fracture alignment: nondisplaced Fracture type: closed Sublocation of acetabulum: unspecified portion of acetabulum Left parietal scalp hematoma S00.03XA Encounter type: initial encounter Acute kidney injury N17.9 Fall W19.XXXA Encounter type: initial encounter
[2019-10-31 17:24] LABS: Glucose Point of Care 266 mg/dL (70-110)
[2019-10-31] MEDS: tamsulosin 0.4 mg Capsule PO (20:00)
[2019-10-31 20:25] LABS: Glucose Point of Care 230 mg/dL (70-110)
[2019-11-01] VITALS: BP 174/80; PULSE 66; RESP 18; TEMP 36.7; O2SAT 97
[2019-11-01 04:00] VITALS: BP 130/73; PULSE 82; RESP 18; TEMP 36.7; O2SAT 95
[2019-11-01 06:31] LABS: Glucose Point of Care 208 mg/dL (70-110)
[2019-11-01 07:19] VITALS: BP 166/83; PULSE 86; RESP 18; TEMP 37; O2SAT 97
[2019-11-01] MEDS: docusate sodium 100 mg Capsule PO (08:28)
[2019-11-01] MEDS: HYDROcodone-acetaminophen 5-325 mg Tablet 1 TAB PO ×2 (08:28→13:35)
[2019-11-01] MEDS: aspirin 81 mg EC Tablet PO (08:28)
[2019-11-01] MEDS: heparin 5,000 unit/mL INJ 1 mL 5000 UNIT SUBCUT (08:29)
[2019-11-01] MEDS: polyethylene glycol 3350 Pkt 17 gm PO (08:56)
[2019-11-01] MEDS: magnesium hydroxide 30 mL UDC PO (08:57)
--- NOTE | 2019-11-01 10:36 | PC.SOCIAL ---
IMM Update Pg 2 of IMM Updated. Initialed, dated, and timed, and placed in chart. Copy provided to patient.
[2019-11-01 11:03] LABS: Glucose Point of Care 298 mg/dL (70-110)
--- NOTE | 2019-11-01 11:31 | P.DS_ITS ---
Discharge Providers Date of Admission: 10/29/19 15:40 Date of Discharge: November 01, 2019 Attending Provider at Admission: Nikolas Cardona MD Attending Provider at Discharge: Gisele Harris MD Consults: Orthopedic surgery, Dr. Leon Primary Care Provider: Nick Florian MD Diagnoses at Discharge Discharge Diagnosis (1) Left acetabular fracture: Status: Acute Problem details: -secondary to fall -imaging reviewed -fall precautions -Ortho consult by Dr. Leon appreciated; non-surgical management recommended, touchdown weight bearing on LLE, outpatient follow up -pain control as needed Qualifiers: Encounter type: initial encounter Sublocation of acetabulum: unspecified portion of acetabulum Fracture type: closed Fracture alignment: nondisplaced Qualified Code(s): S32.402A - Unspecified fracture of left acetabulum, initial encounter for closed fracture (2) Left parietal scalp hematoma: Status: Acute Problem details: -secondary to fall, noted on CT head Qualifiers: Encounter type: initial encounter Qualified Code(s): S00.03XA - Contusion of scalp, initial encounter (3) Acute kidney injury: Status: Resolved Problem details: -noted urinary retention; has Padron catheter in place -continue Flomax -CPK wnl -off IVF with normalization of renal function -continue to monitor renal function (4) Fall: Status: Acute Problem details: -unclear etiology -telemetry monitoring -VSS; continue to monitor Qualifiers: Encounter type: initial encounter Qualified Code(s): W19.XXXA - Unspecified fall, initial encounter Other Information Additional DC diagnoses/information: -IDDM type II; Accucheks, ISS, consistent carb diet as tolerated, hypoglycemia precautions -hx of COPD, no acute exacerbation; Duonebs PRN -DJD -Hypokalemia-resolved; replace K as needed -Suspect peripheral vascular disease and neuropathy; chronic L foot drop, wears brace Reason for Visit Reason for Visit: HIP PAIN Hospital Course Hospital Course: Patient was admitted to the medical surgical floor and orthopedic surgery consulted due to finding of left acetabular comminuted fracture with extension to the superior and inferior pubic rami on imaging following fall prior to admission. Patient had noted left periorbital hematoma as well as a linear laceration above his left eyebrow both of which are improving. Conservative management was recommended and mobilization with touch down weight bearing on the left lower extremity as well as gait training by physical therapy which has been limited due to pain with movement and attempts at weight-bearing. Patient has required 2 person assistance for transfers from bed to chair and due to this as well as living at home alone, recommendation was made for transition to SNF. He has been accepted to [facility] where he will be castro sferred this afternoon. Follow-up with orthopedic surgery has been arranged on an outpatient basis. Of note patient was noted to have significant urinary retention on admission and had a Padron catheter placed. This is to be continued on transition to SNF until appropriate follow-up with primary care provider versus urology. He has noted left foot drop which is chronic and for which he wears a brace at home. Also suspicious that he has some degree of peripheral vascular disease and neuropathy both of which are contributing to his mobility limitations. Discharge Summary: -Patient to follow-up with primary care physician within 1 week -Patient to follow-up with orthopedic surgery (Dr. Leon) in 7 to 10 days -Patient to follow-up with urology as soon as next available appointment Physical Exam Const: COMMON NORMALS: no acute distress, patient oriented x3 and alert GENERAL APPEARANCE: cooperative; not comfortable ORIENTATION/CONSCIOUSNESS: Yes awake HENMT: COMMON NORMALS: normocephalic, atraumatic and moist oral mucous membranes HEAD & SCALP: normocephalic and atraumatic GENERAL EAR: hearing grossly impaired Laterality: bilateral Eye: COMMON NORMALS: Equal, round and reactive pupils present, EOMs intact bilaterally and conjunctivae normal CONJUNCTIVA: Yes conjunctivae normal PUPIL: Yes Equal, round and reactive pupils present Neck/C-Spine: COMMON NORMALS: full ROM GENERAL: Yes normal visual inspection and Yes trachea midline Resp: COMMON NORMALS: normal respiratory effort, No retractions, No use of accessory muscles and clear to auscultation bilaterally EFFORT & INSPECTION: Yes able to speak in complete sentences, Yes symmetric chest movement and No tachypneic AUSCULTATION: clear to auscultation bilaterally Cardio: COMMON NORMALS: regular rate, regular rhythm, S1 normal heart sound present, S2 normal heart sound present and No murmurs present (Cardio) RATE: regular rate RHYTHM: regular rhythm HEART SOUNDS: S1 normal heart sound present and S2 normal heart sound present GI: COMMON NORMALS: Normal to inspection, nondistended, normoactive bowel sounds present, Soft to palpation and non-tender PALPATION: Yes Soft to palpation : BLADDER/KIDNEY EXAM: Yes catheter in place Extremity: COMMON NORMALS: normal to inspection, full ROM, no clubbing, cyanosis or edema and no pedal edema NARRATIVE EXTREMITY EXAM: -noted L foot drop -tenderness to palpation of L foot Neuro: COMMON NORMALS: patient oriented x3, moves all extremities, no focal motor deficits and no sensory deficits noted SENSORIUM/ORIENTATION: Yes alert Psych: COMMON NORMALS: mental status grossly normal, Normal thought process present, cooperative, normal affect and speech normal SPEECH: Yes normal speech THOUGHT PROCESS: Normal thought process present Skin: COMMON NORMALS: no jaundice, no petechiae and no mottling OTHER: -L periorbital hematoma; linear laceration over L eyebrow with noted steri-strips in place Urinary Catheter Management^: Padron: Cath Placed During This Visit: yes Reason for Continuing Indwelling Catheter: Acute Urinary Retention or Obstruction Urinary Catheter Date of Insertion: 10/29/19 Urinary Catheter Time of Insertion: 18:55 Discharge Data Data Completed and Pending: Completed Studies During Hospitalization Category Date Time Status CT hip LT wo con* [id number] Urgent Cat Scan 10/29/19 13:[address] lumbar spine w o con* [id number] Urgen t Cat Scan 10/29/19 13:47 Completed Labs from last 24 hours 11/01/19 11/01/19 10/31/19 10:54 06:20 20:22 POC Glucose 298 208 230 10/31/19 16:45 POC Glucose 266 Vitals: Last Vital Signs Temp 98.6 F 11/01/19 07:19 Pulse 86 11/01/19 07:19 Resp 18 11/01/19 07:19 BP 166/83 11/01/19 07:19 Pulse Ox 97 11/01/19 07:19 Discharge Plan Discharge Patient Disposition: Xfer SNF Condition: Stable Prescriptions: New Miralax 17 gram Powder In Packet 17 g PO DAILY Qty: 30 RF: 0 Lantus Solostar U-100 Insulin 100 unit/mL (3 mL) insulin pen 10 unit SUBCUT QPM Qty: 3 RF: 0 insulin lispro [Humalog KwikPen Insulin] 100 unit/mL insulin pen 7 unit SUBCUT TID Qty: 3 RF: 0 Continued cilostazol 100 mg tablet 100 mg PO BID Qty: 30 RF: 0 cetirizine 10 mg tablet 10 mg PO DAILY Qty: 30 RF: 0 Aspir-81 81 mg Tablet,Delayed Release (Dr/Ec) 81 mg PO DAILY Qty: 30 RF: 0 Milk of Magnesia 400 mg/5 mL suspension 5 ml PO DAILY PRN (Reason: Constipation) Qty: 30 RF: 0 tamsulosin 0.4 mg capsule 0.4 mg PO BEDTIME Qty: 30 RF: 0 bisacodyl 10 mg suppository 10 mg MA DAILY PRN (Reason: Constipation) Qty: 30 RF: 0 Colace 100 mg capsule 100 mg PO BID Qty: 30 RF: 0 Proventil HFA 90 mcg/actuation HFA aerosol inhaler 2 inh INHALATION Q6H PRN (Reason: shortness of breath or wheezing) Qty: 18 RF: 0 Symbicort 80-4.5 mcg/actuation HFA aerosol inhaler 2 inh INHALATION BID Qty: 10.2 RF: 0 Changed hydrocodone-acetaminophen 5-325 mg tablet 1 tab PO Q4H PRN (Reason: Pain) Qty: 30 RF: 0 Tylenol Extra Strength 500 mg Tablet 500 - 1,000 mg PO PRN PRN (Reason: Pain, Mild) Qty: 30 RF: 0 Discontinued MediHoney (honey) 80 % gel 1 applic TOPICAL DAILY RF: 0 naproxen 375 mg tablet 750 mg PO BID PRN (Reason: Pain) RF: 0 insulin aspart U-100 [Novolog Flexpen U-100 Insulin] 100 unit/mL (3 mL) insulin pen See Rx Instructions SUBCUT .PRN RF: 0 prednisone 20 mg Tablet 20 mg PO DAILY RF: 0 insulin lispro [Humalog KwikPen Insulin] 100 unit/mL Insulin Pen 0 unit SUBCUT . DIRECTED RF: 0 Lantus Solostar U-100 Insulin 100 unit/mL (3 mL) Insulin Pen 0 unit SUBCUT . DIRECTED RF: 0 Discharge Orders: Discharge Order (Routine); Ordered 11/01/19 Ordered By: Gisele Harris Referrals: [facility] [Outside] Jesse Richards MD [Physician] - 2 weeks (Follow up for noted urinary retention requiring Padron catheter placement) Nick Florian MD [Primary Care Provider] - 4-7 days (Post hospital discharge follow up) Wang Leon MD [Physician] - 7-10 days ( Obtain mobile AP, internal oblique, and external oblique radiographs left hip for 1 week telehealth visit) Discharge Diet: Diabetic Discharge Activity: As per PT/OT instructions Activity Restrictions/Additional Instructions: -Touchdown weight-bearing left lower extremity. Gait training with physical therapy -Please continue strict fall precautions -Please continue appropriate daily catheter care. Patient will have follow up arranged with Urology so please keep catheter in place until either Urology or primary care provider determines it should be discontinued Discharge Attestations Time Spent in Discharge Care*: greater than 30 min Specific Discharge Activities: Specific discharge activities: educating patient, discussing with assistant case manager/social workers/dc planners, documenting/other paperwork and evaluating patient/reviewing data Status at Discharge: Cognitive status at discharge: cognitively intact , Behavioral status at discharge: cooperative , Functional status at discharge: uses cane/walker Overall status at discharge: patient has a new baseline Quality Metrics Clinical Quality Measures During this hospital stay, did patient experience: None Coding Level of Care Code Acute Hospital Education Coordinator for Yasmeen Fwd Diagnoses Left acetabular fracture S32.402A Encounter type: initial encounter Sublocation of acetabulum: unspecified portion of acetabulum Fracture type: closed Fracture alignment: nondisplaced Left parietal scalp hematoma S00.03XA Encounter type: initial encounter Acute kidney injury N17.9 Fall W19.XXXA Encounter type: initial encounter
[2019-11-01 11:44] VITALS: BP 132/80; PULSE 84; RESP 18; TEMP 37.2; O2SAT 96
--- NOTE | 2019-11-01 13:51 | PC.NURSE ---
Report called to [facility] and given to KADEN Gaytan.
--- NOTE | 2019-11-01 13:57 | PC.NURSE ---
patient talking to friend. notified Shikha that patient is being discharge to [facility] today.
--- NOTE | 2019-11-01 14:17 | PC.NURSE ---
PT TAKEN TO [facility] VIA GURNEY BY TRANSPORT
[2019-11-01 14:18] VITALS: BP 132/80; PULSE 84; RESP 18; TEMP 37.2; O2SAT 96
== END 2019-11-01 14:19 | disposition skilled nursing facility (03) | DRG 536 ==
LOC: ER 14:05 → MEDSURG 10-30 06:08
PROVIDERS: Emergency Medicine; Admitting Provider Internal Medicine; PCP Family Medicine; Visit Provider Family Medicine
DX: S32.402A Unspecified fracture of left acetabulum, initial encounter for closed fracture (principal); N17.9 Acute kidney failure, unspecified; J44.9 Chronic obstructive pulmonary disease, unspecified; S00.03XA Contusion of scalp, initial encounter; W19.XXXA Unspecified fall, initial encounter; R33.9 Retention of urine, unspecified; M19.90 Unspecified osteoarthritis, unspecified site; E87.6 Hypokalemia; E11.40 Type 2 diabetes mellitus with diabetic neuropathy, unspecified; E11.51 Type 2 diabetes mellitus with diabetic peripheral angiopathy without gangrene; M21.372 Foot drop, left foot; Z79.82 Long term (current) use of aspirin; Z79.4 Long term (current) use of insulin; Z87.891 Personal history of nicotine dependence
CPT/HCPCS: 12345; 36415; 36416; 51702; 51798; 70450; 72131; 73502; 73700; 80048; 80053; 81001; 81003; 82009; 82550; 82962; 83605; 83690; 83735; 84443; 84484; 85025; 86850; 86900; 93005; 94640; 96372; 96374; 96375; 96376; 97110; 97116; 97161; 97530; 99282; 99283; 99284; J1644; J1815; J2270; J7030; J7040

== ENCOUNTER 2019-12-15 11:41 | Emergency (ER) | payer MEDICARE, SELFPAY ==
[2019-12-15 12:15] VITALS: BP 115/74; PULSE 90; RESP 14; TEMP 36.4; O2SAT 97; BMI 25.8
--- NOTE | 2019-12-15 12:31 | CT_ITS ---
WS: [id number] CT HEAD TECHNIQUE: Noncontrast CT of the head obtained from the skullbase to the vertex. CLINICAL INFORMATION: fall, head injury, blood thinner COMPARISON: October 27, 2019 DLP: 566.[address] scans at [facility] use at least one of these dose optimization techniques: automat ed exposure control; mA and/or kV adjustment per patient size (includes targeted exams where dose is matched to clinical indication); or iterative reconstruction. FINDINGS: No evidence of intracranial hemorrhage or mass effect. Ventricular system and basal cisterns are sal[place] nt. Mild small vessel changes with moderate parenchymal volume loss. No extra-axial fluid collections . No evidence of mass or mass effect. Normal gaytan-white differentiation. Paranasal sinuses and mastoid air cells are well aerated. . Small soft tissue laceration near the par ietal vertex. No acute fractures. CT/CT head wo con* [id number] IMPRESSION: 1. No evidence of intracranial hemorrhage or mass effect. 2. Mild small vessel changes. Moderate parenchymal volume loss. 3. No acute intracranial findings. Notified COLLEEN Trotter at 12/15/2019 1:36 PM.
--- NOTE | 2019-12-15 12:38 | ED_ITS ---
HPI - Head Injury General: Chief complaint: Head Injury Stated complaint: FALL/HEAD LAC Time Seen by Provider: 12/15/19 12:31 History of Present Illness: HPI Narrative: Patient found in bed today by caregiver who checks on him daily and fell he had a laceration to his head patient did not remember what happened he does have a history of dementia he is on blood thinner denies any other problems. MD Complaint: head injury Mechanism of Injury: unsure Place: home Loss of Consciousness: unsure Location of injury: occipital Severity: mild Associated symptoms: Deny nausea or vomiting Review of Systems Narrative: No other problems noted on trauma survey Const: Denies: fever(s), chills or body aches Eyes: Denies: change in vision or blurry vision ENMT: Denies: throat pain or nasal congestion Card: Denies: chest pain or dyspnea on exertion Resp: Denies: dyspnea, productive cough or non-productive cough GI: Denies: abdominal pain, nausea or vomiting : Denies: difficulty urinating Musc: Denies: extremity pain Skin/Breast: Reports: other (Large laceration to scalp, patient also appears to have possibly a neoplasm at center of his upper chest skin [employer] strongly resemble an resembling a squamous cell); Denies: rash Neuro: Denies: headache(s) Psych: Denies: anxiety or depression Cipriano/Lymph: Denies: easy bruising PFSH ED PFSH: Medical History Constipation COPD (chronic obstructive pulmonary disease) Diabetes mellitus, type II Fall -unclear etiology -telemetry monitoring -VSS; continue to monitor Perineal abscess Urinary retention Surgical History History of back surgery History of carpal tunnel release of both wrists History of neck surgery S/P excisional debridement Family History Mother , AT AGE 65 Cancer Father , IN HIS 90'S No problems noted. Denies family history of Anesthesia complication Bleeding disorder Social History Smoking and tobacco status: former smoker Alcohol intake: current Alcohol intake frequency: few times a month Marital status: History of recent travel: No Physical Exam Const: COMMON NORMALS: no acute distress, average body habitus and patient oriented x3 HENMT: COMMON NORMALS: normocephalic HEAD & SCALP: normal to inspection and normocephalic FACE & SINUS: normal facial exam Eye: COMMON NORMALS: conjunctivae normal GENERAL EYE: appearance normal, both eyes and all related structures CONJUNCTIVA: Yes conjunctivae normal Neck/C-Spine: COMMON NORMALS: no JVD Chest: COMMONS NORMALS: normal inspection of the chest Resp: COMMON NORMALS: normal respiratory effort and clear to auscultation bilaterally AUSCULTATION: clear to auscultation bilaterally Cardio: COMMON NORMALS: no JVD, regular rate and regular rhythm RATE: regular rate RHYTHM: regular rhythm GI: COMMON NORMALS: Normal to inspection, nondistended, normoactive bowel sounds present Extremity: COMMON NORMALS: normal to inspection and full ROM Neuro: COMMON NORMALS: patient oriented x3 Skin: NARRATIVE SKIN EXAM: Approximately 4 to 5 inch laceration running vertically across top of scalp from occipital to the parietal area no active bleeding Procedures Laceration Laceration 1: Site: scalp Size (cm): 8 Description: linear Depth: simple, single layer Pre-repair: wound explored and irrigated extensively Skin layer closed with: other (eriberto) Number of sutures: 6 Course Vital Signs: Vital signs: Vital Signs Temperature 97.6 F 12/15/19 12:15 Pulse Rate 90 12/15/19 12:15 Respiratory Rate 14 12/15/19 12:15 Blood Pressure 115/74 12/15/19 12:15 Pulse Oximetry 94 12/15/19 12:41 MDM - Head Injury Lab Data: Labs: Lab Results 12/15/19 12/15/19 Range/Units 12:41 13:06 WBC 7.5 (4.0-10.0) 10^3/ uL RBC 4.28 (4.1-5.3) 10^6/u L Hgb 13.2 (11.7-16.6) g/dL Hct 39.9 L (42.0-52.0) % MCV 93.2 (80-94) fL MCH 30.8 (28.0-34.0) pg MCHC 33.1 (30.0-36.0) g/dL RDW 13.1 (12.1-15.1) % Plt Count 247 (130-400) 10^3/c mm MPV 9.9 (7.4-10.4) fL Neut % (Auto) 69.1 % Lymph % (Auto) 22.4 % Nuckolls % (Auto) 5.7 % Eos % (Auto) 1.3 % Baso % (Auto) 0.7 % Neut # (Auto) 5.19 (1.8-7.7) 10^3/u L Lymph # (Auto) 1.7 (0.8-4.8) 10^3/u L Nuckolls # (Auto) 0.4 (0.2-0.9) 10^3/u L Eos # (Auto) 0.1 (0.0-0.8) 10^3/u L Baso # (Auto) 0.1 (0.0-0.1) 10^3/u L Nucleated RBC % (a uto) 0 % Nucleated RBCs # 0.0 /100WBC POC Glucose 267 (70-110) mg/dL Discharge Plan Discharge Condition: Good Prescriptions: No Action Miralax 17 gram Powder In Packet 17 g PO DAILY Qty: 30 RF: 0 Lantus Solostar U-100 Insulin 100 unit/mL (3 mL) insulin pen 10 unit SUBCUT QPM Qty: 3 RF: 0 Humalog KwikPen Insulin 100 unit/mL insulin pen 7 unit SUBCUT TID Qty: 3 RF: 0 cilostazol 100 mg tablet 100 mg PO BID Qty: 30 RF: 0 cetirizine 10 mg tablet 10 mg PO DAILY Qty: 30 RF: 0 Aspir-81 81 mg Tablet,Delayed Release (Dr/Ec) 81 mg PO DAILY Qty: 30 RF: 0 Tylenol Extra Strength 500 mg Tablet 500 - 1,000 mg PO PRN PRN (Reason: Pain, Mild) Qty: 30 RF: 0 Milk of Magnesia 400 mg/5 mL suspension 5 ml PO DAILY PRN (Reason: Constipation) Qty: 30 RF: 0 tamsulosin 0.4 mg capsule 0.4 mg PO BEDTIME Qty: 30 RF: 0 bisacodyl 10 mg suppository 10 mg FL DAILY PRN (Reason: Constipation) Qty: 30 RF: 0 Colace 100 mg capsule 100 mg PO BID Qty: 30 RF: 0 Proventil HFA 90 mcg/actuation HFA aerosol inhaler 2 inh INHALATION Q6H PRN (Reason: shortness of breath or wheezing) Qty: 18 RF: 0 Symbicort 80-4.5 mcg/actuation HFA aerosol inhaler 2 inh INHALATION BID Qty: 10.2 RF: 0 hydrocodone-acetaminophen 5-325 mg tablet 1 tab PO Q4H PRN (Reason: Pain) Qty: 30 RF: 0 Coding Level of Care Code ED Structural Engineering Technician for Chg Fwd Exam Comprehensive
[2019-12-15 12:41] VITALS: O2SAT 94
[2019-12-15 12:47] LABS: Basophils # 0.1 10^3/uL (0.0-0.1); Basophils % 0.7 %; Eosinophils # 0.1 10^3/uL (0.0-0.8); Eosinophils % 1.3 %; Hematocrit 39.9 % (42.0-52.0); Hemoglobin 13.2 g/dL (11.7-16.6); Lymphocytes # 1.7 10^3/uL (0.8-4.8); Lymphocytes % 22.4 %; Mean Corpuscular HGB Conc 33.1 g/dL (30.0-36.0); Mean Corpuscular Hemoglobin 30.8 pg (28.0-34.0); Mean Corpuscular Volume 93.2 fL (80-94); Mean Platelet Volume 9.9 fL (7.4-10.4); Monocytes # 0.4 10^3/uL (0.2-0.9); Monocytes % 5.7 %; Neutrophils # 5.19 10^3/uL (1.8-7.7); Neutrophils % 69.1 %; Nucleated Red Blood Cells % 0 %; Platelet Count 247 10^3/cmm (130-400); Red Blood Count 4.28 10^6/uL (4.1-5.3); Red Cell Distribution Width 13.1 % (12.1-15.1); White Blood Count 7.5 10^3/uL (4.0-10.0)
--- NOTE | 2019-12-15 12:50 | ECG_ITS ---
[facility] Test Date: 2019-12-15 Pat Name: Castro Coley Department: Room: Gender: Male Quality Rn: : 1940 Requested By: Guicho Storey Order Number: [id number] Eduardo MD: Rubi Garcia M.D. Measurements Intervals [place] Rate: 86 P: 54 WI: 148 QRS: -39 QRSD: 95 T: 79 QT: 378 QTc: 452 Interpretive Statements SINUS RHYTHM LEFT AXIS DEVIATION [QRS AXIS < -30] NONSPECIFIC T-WAVE ABNORMALITY Compared to ECG 10/27/2019 15:00:20 T-wave abnormality now present Electronically Signed On 12-16-2019 20:29:45 CDT by Rubi Garcia M.D. [id number] nii
[2019-12-15 13:09] LABS: Glucose Point of Care 267 mg/dL (70-110)
[2019-12-15 13:46] LABS: Alanine Aminotransferase 18 U/L (0-41); Albumin Level 3.6 g/dL (3.5-5.2); Alkaline Phosphatase 150 IU/L (40-130); Anion Gap 9.5 (5-19); Aspartate Amino Transferase 18 U/L (0-40); Blood Urea Nitrogen 20 mg/dL (8-23); Calcium 9.3 mg/dL (8.5-10.5); Carbon Dioxide 32 mmol/L (22-29); Chloride 102 mmol/L (98-107); Globulin 2.7 g/dL (1.3-4.6); Glucose 301 mg/dL (65-115); Osmolality Calculated 298 mOsm/kg (285-295); Potassium 3.5 mmol/L (3.5-5.1); Sodium 140 mmol/L (136-145); Total Bilirubin 0.3 mg/dL (0.15-1.2); Total Protein 6.3 g/dL (6.6-8.7)
[2019-12-15 14:13] VITALS: BP 133/82; PULSE 91; RESP 16; O2SAT 95
== END 2019-12-15 14:28 | disposition home or self-care (01) ==
PROVIDERS: Emergency Provider Nurse Practitioner Family; PCP Family Medicine
DX: Z79.4 Long term (current) use of insulin (principal); Z79.82 Long term (current) use of aspirin; S01.01XA Laceration without foreign body of scalp, initial encounter; W19.XXXA Unspecified fall, initial encounter; J44.9 Chronic obstructive pulmonary disease, unspecified; E11.9 Type 2 diabetes mellitus without complications; Z87.891 Personal history of nicotine dependence
CPT/HCPCS: 12004; 12345; 36415; 36416; 70450; 80053; 82962; 85025; 93005; 99282; 99283

== ENCOUNTER 2020-03-22 03:24 | Observation (INO) | payer MEDICARE, MEDICAID, SELFPAY ==
[2020-03-22] VITALS (15 sets, daily range): BP systolic 90–154; BP diastolic 56–82; PULSE 61–86; RESP 16–22; TEMP 36.4–37.6; O2SAT 91–100; BMI 20.9
--- NOTE | 2020-03-22 03:29 | XR_ITS ---
WS: [id number] Right arm and humerus, 2 views, 03/22/2020 Clinical Data: Fall/injury Comparison: None. Findings: There is a comminuted fracture of the right humeral head and humeral neck. The humeral head is still adjacent to the glenoid fossa. 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 There is patchy opacity within the right lung which probably represents a diffuse pneumonia. The shaft of the right humerus and the visualized right elbow are not remarkable. XR/[place] [id number] Impression: Comminuted fracture of the right humeral head and right humeral neck with sligh t medial displacement of the proximal humeral shaft.
--- NOTE | 2020-03-22 03:29 | XRR_ITS ---
PROCEDURE INFORMATION: Exam: XR Right Shoulder Exam date and time: 03/22/2020 3:37 AM Age: 79 years old Clinical indication: Injury or trauma; Fall; Blunt trauma (contusions or hematomas); Shoulder; Right; Additional info: Fall/injury TECHNIQUE: Imaging protocol: XR Right shoulder. Views: 2 or more views. COMPARISON: No relevant prior studies available. FINDINGS: Bones/joints: Comminuted fracture of the upper humerus is present. Soft tissues: Normal. Infiltrates are seen in the right lung. XR/XR shoulder RT min 2V* [id number] IMPRESSION: Fracture of the right humerus is present. Chest x-ray is suggested to evaluate the lungs.
--- NOTE | 2020-03-22 03:30 | XR_ITS ---
WS: [id number] Portable AP upright chest, 03/22/2020 Clinical Data: Fall/injury Comparison: Portable chest, 08/29/2019. Findings: There is a patchy opacity involving the entire right lung which probably represents an acut e pneumonia. There is minimal patchy opacity in the left lower lobe. The heart size is normal. The ao rtic arch and descending aorta show tortuosity. Monitor leads are on the chest wall. The comminuted f racture of the right humeral head and right humeral neck are noted. XR/XR chest 1V portable [id number] Impression: 1. Patchy opacity in right lung and left lower lobe may represent acute pneumon ia. 2. Comminuted fracture of right humeral head and right femoral neck.
--- NOTE | 2020-03-22 03:31 | W.ED.FALL ---
HPI - Fall General: Chief Complaint: Fall Stated Complaint: RT SHOULDER PAIN Time Seen by Provider: 03/22/20 03:25 Source: patient and EMS Mode of arrival: EMS Limitations: other (Patient extremely hard of hearing) History of Present Illness: HPI Narrative: Mr. Coley is a pleasant 79-year-old male who is very hard of hearing and difficult to obtain a history from. Some history comes from him and other history comes from EMS. Patient was believed to be transferring from his chair to his bed unassisted and lost his balance and fell. It is believe he hit his head and shoulder both on his nightstand and bed and then the floor. He is not believed to have loss of consciousness. He has a good deal of pain primarily to the right proximal arm and shoulder. Patient denies any shortness of breath. Patient does state he has some abdominal pain. It is not believe the patient is on any anticoagulation or antiplatelet agents but EMS did not have a medication list present upon arrival. Patient complains of worsening pain in his right shoulder with movement otherwise he denies any other complaints or concerns at this time. Associated symptoms-after fall: Reports abdominal pain; Denies chest pain, confusion, difficulty walking, headache(s), hematuria, lightheadedness, neck pain or vertigo Review of Systems Const: Denies: fever(s), chills, body aches, fatigue, malaise or diaphoresis Eyes: Denies: change in vision, blurry vision, photophobia, eye discomfort, eye discharge, eye redness or yellow eyes ENMT: Denies: throat pain, odynophagia, hoarseness, swelling of lips/tongue, ear or mastoid pain, ear discharge, change in hearing or nasal discharge Card: Denies: chest pain, palpitations, irregular heart rhythm, edema, lightheadedness, syncope, pre-syncope, dyspnea on exertion or orthopnea Resp: Denies: dyspnea, productive cough, non-productive cough, wheezing, hemoptysis or chest congestion GI: Reports: abdominal pain; Denies: nausea, vomiting, hematemesis, coffee ground emesis, heartburn, diarrhea, constipation, GI cramping, hematochezia or melena : Denies: flank pain, dysuria, urinary frequency, urinary urgency or hematuria Musc: Reports: extremity pain and joint pain; Denies: neck pain, back pain, extremity swelling, joint swelling, joint redness, joint warmth or joint stiffness Skin/Breast: Denies: rash, pruritus, erythema, skin pain or skin tenderness Neuro: Denies: headache(s), numbness in extremities, weakness in extremities, sensory changes, lack of coordination, difficulty walking, dizziness, vertigo, confusion, Slurred speech present or seizure-like activity Cipriano/Lymph: Denies: easy bruising, easy bleeding, petechiae, purpura or enlarged lymph nodes All/Imm: Denies: urticaria, throat swelling, tongue swelling, facial swelling or acute wheezing PFSH ED PFSH: Medical History Constipation COPD (chronic obstructive pulmonary disease) Diabetes mellitus, type II Fall -unclear etiology -telemetry monitoring -VSS; continue to monitor Perineal abscess Urinary retention Surgical History History of back surgery History of carpal tunnel release of both wrists History of neck surgery S/P excisional debridement Family History Mother , AT AGE 65 Cancer Father , IN HIS 90'S No problems noted. Denies family history of Anesthesia complication Bleeding disorder Social History Smoking and tobacco status: former smoker Alcohol intake: current Alcohol intake frequency: few times a month Marital status: History of recent travel: No Physical Exam Const: COMMON NORMALS: no acute distress, patient oriented x3, no limitations and alert GENERAL APPEARANCE: cooperative HENMT: COMMON NORMALS: normocephalic, atraumatic, external ears normal, EAC's normal and Normal external nose present HEAD & SCALP: normal to inspection, normocephalic and atraumatic FACE & SINUS: normal facial exam and face symmetric NOSE: Normal external nose present and Normal nares present EXTERNAL EAR: Yes external ears normal EXTERNAL AUDITORY CANAL: EAC's normal MOUTH: Normal oral and palatal mucosa present, lip normal and tongue normal Eye: COMMON NORMALS: Equal, round and reactive pupils present and conjunctivae normal GENERAL EYE: appearance normal, both eyes and all related structures ALIGNMENT: Yes alignment normal PERIORBITAL: periorbital findings normal EYELID: eyelids normal CONJUNCTIVA: Yes conjunctivae normal SCLERA: sclerae normal PUPIL: Yes Equal, round and reactive pupils present Neck/C-Spine: COMMON NORMALS: full ROM, no lymphadenopathy, supple, no meningeal signs and no JVD GENERAL: Yes normal visual inspection and Yes trachea midline Chest: COMMONS NORMALS: normal inspection of the chest and normal palpation of entire chest wall Resp: COMMON NORMALS: normal respiratory effort, No retractions, No use of accessory muscles and clear to auscultation bilaterally EFFORT & INSPECTION: Yes able to speak in complete sentences and Yes symmetric chest movement AUSCULTATION: clear to auscultation bilaterally, no crackles, rales on the right, no rhonchi and no wheezes Cardio: COMMON NORMALS: no JVD, regular rate, regular rhythm, S1 normal heart sound present and S2 normal heart sound present RATE: regular rate RHYTHM: regular rhythm HEART SOUNDS: S1 normal heart sound present, S2 normal heart sound present, no click, no gallops, no murmurs and no rubs GI: COMMON NORMALS: Soft to palpation and No hepatosplenomegaly present PALPATION: Yes Soft to palpation, Yes Tenderness to palpation present (GI) (Mild diffusely without rebound or guarding), No Guarding due to palpation present (GI), No Rigid due to palpation, Yes No hepatosplenomegaly present, No Hernia present, No Palpable mass present and No Pulsatile mass present : COMMON NORMALS: Yes no CVA tenderness BLADDER/KIDNEY EXAM: Yes no CVA tenderness Back/Pelvis: COMMON NORMALS: no CVA tenderness, thoracic and lumbar spine normal to inspection, no thoracic nor lumbar tenderness and thoraco-lumbar ROM normal Extremity: NARRATIVE EXTREMITY EXAM: Right upper extremity with swelling and tenderness to palpation. Ecchymosis noted to the anterior shoulder. Increased pain with range of motion. Patient neurovascularly intact distal. Range of musculoskeletal exam is unremarkable. Neuro: COMMON NORMALS: patient oriented x3, CN's II-XII intact bilaterally, moves all extremities, no focal motor deficits and no sensory deficits noted SENSORIUM/ORIENTATION: Yes alert MENINGEAL SIGNS: Yes no meningeal signs SPEECH: speech normal Psych: COMMON NORMALS: mental status grossly normal, Normal thought process present, cooperative, normal affect, speech normal and activity/motor behavior normal SPEECH: Yes normal speech THOUGHT PROCESS: Normal thought process present Skin: COMMON NORMALS: no rashes or lesions noted, turgor normal, no jaundice, no petechiae and no mottling GENERAL SKIN EXAM: no rashes or lesions noted and turgor normal Course Vital Signs: Vital signs: Vital Signs Temperature 97.5 F L 03/22/20 03:25 Pulse Rate 74 03/22/20 05:00 Respiratory Rate 18 03/22/20 05:00 Blood Pressure 124/70 03/22/20 05:00 Pulse Oximetry 92 03/22/20 05:00 MDM - Fall Lab Data: Attestation: I reviewed the patient's lab results. Labs: Lab Results 03/22/20 03/22/20 03/22/20 Range/Units 03:30 03:30 03:30 WBC 4.6 (4.0-10.0) 10^3/ uL RBC 4.53 (4.1-5.3) 10^6/u L Hgb 13.8 (11.7-16.6) g/dL Hct 41.3 L (42.0-52.0) % MCV 91.2 (80-94) fL MCH 30.5 (28.0-34.0) pg MCHC 33.4 (30.0-36.0) g/dL RDW 13.7 (12.1-15.1) % Plt Count 231 (130-400) 10^3/c mm MPV 10.6 H (7.4-10.4) fL Neut % (Auto) 41.6 % Lymph % (Auto) 44.4 % Eddy % (Auto) 8.2 % Eos % (Auto) 3.9 % Baso % (Auto) 1.7 % Neut # (Auto) 1.92 (1.8-7.7) 10^3/u L Lymph # (Auto) 2.1 (0.8-4.8) 10^3/u L Eddy # (Auto) 0.4 (0.2-0.9) 10^3/u L Eos # (Auto) 0.2 (0.0-0.8) 10^3/u L Baso # (Auto) 0.1 (0.0-0.1) 10^3/u L Nucleated RBC % (a uto) 0 % Nucleated RBCs # 0.0 /100WBC PT 12.50 (12.1-14.9) SECO NDS INR 0.91 (0.8-1.2) APTT 26.0 (23.9-36.7) SECO NDS Sodium 136 (136-145) mmol/L Potassium 4.2 (3.5-5.1) mmol/L Chloride 99 (98-107) mmol/L Carbon Dioxide 25 (22-29) mmol/L Anion Gap 16.2 (5-19) BUN 14 (8-23) mg/dL Creatinine 1.0 (0.7-1.2) mg/dL GFR Calculation Not Reportable Glucose 300 H (65-115) mg/dL Calculated Osmolal ity 294 (285-295) mOsm/k g Calcium 9.4 (8.5-10.5) mg/dL Total Bilirubin 0.4 (0.15-1.2) mg/dL AST 13 (0-40) U/L ALT 8 (0-41) U/L Alkaline Phosphata se 74 (40-130) IU/L Total Protein 6.5 L (6.6-8.7) g/dL Albumin 3.8 (3.5-5.2) g/dL Globulin 2.7 (1.3-4.6) g/dL Imaging Data^: CXR: Attestation: I personally reviewed and interpreted this imaging study as follows: My impression: No cardiomegaly. Bilateral pulmonary contusions noted right greater than left. XR right shoulder: Attestation: I personally reviewed and interpreted this imaging study as follows: My impression: Comminuted surgical neck fracture of the humerus. Humeral head appears in place and not dislocated. Significant displacement present of the distal humerus. XR right humerus: Attestation: I personally reviewed and interpreted this imaging study as follows: My impression: Comminuted fracture of the humeral head head and neck. Discharge Plan Discharge Prescriptions: No Action Miralax 17 gram Powder In Packet 17 g PO DAILY Qty: 30 RF: 0 Lantus Solostar U-100 Insulin 100 unit/mL (3 mL) insulin pen 10 unit SUBCUT QPM Qty: 3 RF: 0 Humalog KwikPen Insulin 100 unit/mL insulin pen 7 unit SUBCUT TID Qty: 3 RF: 0 cilostazol 100 mg tablet 100 mg PO BID Qty: 30 RF: 0 cetirizine 10 mg tablet 10 mg PO DAILY Qty: 30 RF: 0 Aspir-81 81 mg Tablet,Delayed Release (Dr/Ec) 81 mg PO DAILY Qty: 30 RF: 0 Tylenol Extra Strength 500 mg Tablet 500 - 1,000 mg PO PRN PRN (Reason: Pain, Mild) Qty: 30 RF: 0 Milk of Magnesia 400 mg/5 mL suspension 5 ml PO DAILY PRN (Reason: Constipation) Qty: 30 RF: 0 tamsulosin 0.4 mg capsule 0.4 mg PO BEDTIME Qty: 30 RF: 0 bisacodyl 10 mg suppository 10 mg DC DAILY PRN (Reason: Constipation) Qty: 30 RF: 0 Colace 100 mg capsule 100 mg PO BID Qty: 30 RF: 0 Proventil HFA 90 mcg/actuation HFA aerosol inhaler 2 inh INHALATION Q6H PRN (Reason: shortness of breath or wheezing) Qty: 18 RF: 0 Symbicort 80-4.5 mcg/actuation HFA aerosol inhaler 2 inh INHALATION BID Qty: 10.2 RF: 0 hydrocodone-acetaminophen 5-325 mg tablet 1 tab PO Q4H PRN (Reason: Pain) Qty: 30 RF: 0 Coding Level of Care Code ED [employer] for Kiannag Odilia
--- NOTE | 2020-03-22 03:33 | CTR_ITS ---
PROCEDURE INFORMATION: Exam: CT Head Without Contrast Exam date and time: 03/22/2020 3:37 AM Age: 79 years old Clinical indication: Injury or trauma; Fall; Blunt trauma (contusions or hematomas); Without loss of consciousness; Additional info: Fall/injury TECHNIQUE: Imaging protocol: Computed tomography of the head without contrast. Radiation optimization: All CT scans at this facility use at least one of these dose optimization techniques: automated exposure control; mA and/or kV adjustment per patient size (includes targeted exams where dose is matched to clinical indication); or iterative reconstruction. COMPARISON: CT head wo con* [id number] 12/15/2019 1:06 PM RADIATION DOSE METRICS: Total DLP (mGy-cm): 792.08 FINDINGS: Brain: Normal. No hemorrhage. Decreased white matter attenuation consistent with microvascular ischemic changes. No mass effect. Cerebral ventricles: Dilated consistent with atrophy. Bones/joints: Unremarkable. No acute fracture. Paranasal sinuses: Visualized sinuses are unremarkable. No fluid levels. Mastoid air cells: Visualized mastoid air cells are well aerated. Soft tissues: Unremarkable. CT/CT head wo con* [id number] IMPRESSION: No acute intracranial abnormality. Radiation Dose CTDIVOL = (mGy): DLP = 792.08 (mGy-cm)
[2020-03-22] MEDS: ondansetron 2 mg/ML SDV 2 mL 4 MG IVP (03:35)
[2020-03-22] MEDS: morphine 4 mg/mL SDV 1 mL IVP (03:40)
--- NOTE | 2020-03-22 03:58 | CTR_ITS ---
PROCEDURE INFORMATION: Exam: CT Chest With Contrast; Diagnostic Exam date and time: 03/22/2020 3:58 AM Age: 79 years old Clinical indication: Injury or trauma; Fall; Generalized; Blunt trauma (contusions or hematomas); Additional info: Trauma/pain TECHNIQUE: Imaging protocol: Diagnostic computed tomography of the chest with intravenous contrast. Radiation optimization: All CT scans at this facility use at least one of these dose optimization techniques: automated exposure control; mA and/or kV adjustment per patient size (includes targeted exams where dose is matched to clinical indication); or iterative reconstruction. Contrast material: OMNI 300; Contrast volume: 95 ml; Contrast route: INTRAVENOUS (IV); COMPARISON: CT angio chest PE protcl [id number] 08/25/2019 1:37 PM RADIATION DOSE METRICS: Total DLP (mGy-cm): 1818.04 FINDINGS: Lungs: Bilateral ground-glass lung infiltrates are seen more marked on the right side. No consolidation. No masses. Pleural space: A small right pleural effusion is present. No pneumothorax is seen. Heart: Unremarkable. No cardiomegaly. No pericardial effusion. Aorta: Unremarkable. No aortic aneurysm. Lymph nodes: Unremarkable. No enlarged lymph nodes. Bones/joints: Comminuted fracture of the right upper humerus is present. No acute fracture. Soft tissues: Unremarkable. IMPRESSION: 1. Bilateral ground-glass infiltrates and small right pleural effusion are present. COVID-19 testing and follow-up is suggested. Differential diagnosis is CHF which is felt to be less likely. 2. Comminuted fracture of the right upper humerus is present. PROCEDURE INFORMATION: Exam: CT Abdomen And Pelvis With Contrast Exam date and time: 03/22/2020 3:58 AM Age: 79 years old Clinical indication: Injury or trauma; Fall; Generalized; Blunt trauma (contusions or hematomas); Additional info: Trauma/pain TECHNIQUE: Imaging protocol: Computed tomography of the abdomen and pelvis with intravenous contrast. Radiation optimization: All CT scans at this facility use at least one of these dose optimization techniques: automated exposure control; mA and/or kV adjustment per patient size (includes targeted exams where dose is matched to clinical indication); or iterative reconstruction. Contrast material: OMNI 300; Contrast volume: 95 ml; Contrast route: INTRAVENOUS (IV); COMPARISON: CT angio chest PE protcl [id number] 08/25/2019 1:37 PM RADIATION DOSE METRICS: Total DLP (mGy-cm): 1818.04 FINDINGS: Liver: Normal. No mass. Gallbladder and bile ducts: Normal. No calcified stones. No ductal dilation. Pancreas: Normal. No ductal dilation. Spleen: Normal. No splenomegaly. Adrenal glands: Normal. No mass. Kidneys and ureters: Normal. No hydronephrosis. Stomach and bowel: Unremarkable. No obstruction. Constipation is noted. Few diverticuli are present in the colon without diverticulitis. Appendix: No evidence of appendicitis. Unremarkable appendix is seen. Intraperitoneal space: Unremarkable. No free air. No significant fluid collection. Vasculature: Unremarkable. No abdominal aortic aneurysm. Lymph nodes: Unremarkable. No enlarged lymph nodes. Urinary bladder: Unremarkable as visualized. Reproductive: Unremarkable as visualized. Bones/joints: Bilateral pedicle screws are seen at L4 and L5 with degenerative changes. No acute fracture. Soft tissues: Unremarkable. CT/CT chest abd pel w con* IMPRESSION: No acute findings. Radiation Dose CTDIVOL = (mGy): DLP = 1818.04~1818.04 (mGy-cm)
[2020-03-22] MEDS: sodium chloride 0.9% 1,000 ML 999 ML IV (04:05)
--- NOTE | 2020-03-22 04:06 | CTR_ITS ---
PROCEDURE INFORMATION: Exam: CT Cervical Spine Without Contrast Exam date and time: 03/22/2020 4:07 AM Age: 79 years old Clinical indication: Injury or trauma; Fall; Blunt trauma; Additional info: Pain TECHNIQUE: Imaging protocol: Computed tomography images of the cervical spine without contrast. Radiation optimization: All CT scans at this facility use at least one of these dose optimization techniques: automated exposure control; mA and/or kV adjustment per patient size (includes targeted exams where dose is matched to clinical indication); or iterative reconstruction. COMPARISON: CT cervical spin wo con* [id number] 08/10/2019 2:30 PM RADIATION DOSE METRICS: Total DLP (mGy-cm): 640.59 FINDINGS: Vertebrae: No acute fracture. Blocked vertebra is seen at C5-C6. The disc heights are reduced at C4-C5 and C6-C7 with osteophytes Normal alignment. Soft tissues: Unremarkable. Mastoid air cells: Left mastoiditis changes are present. Lungs: Bilateral ground-glass lung infiltrates are seen more marked on the right side with a small right pleural effusion. CT/CT cervical spin wo con* [id number] IMPRESSION: 1. No fracture or dislocation is seen. 2. Blocked vertebra is seen at C5-C6. 3. Degenerative changes are noted as described. 4. Ground-glass lung infiltrates and small right pleural effusion is seen. Chest x-ray is suggested. 5. Left mastoiditis is present. Radiation Dose CTDIVOL = (mGy): DLP = 640.59 (mGy-cm)
[2020-03-22 04:08] LABS: Basophils # 0.1 10^3/uL (0.0-0.1); Basophils % 1.7 %; Eosinophils # 0.2 10^3/uL (0.0-0.8); Eosinophils % 3.9 %; Hematocrit 41.3 % (42.0-52.0); Hemoglobin 13.8 g/dL (11.7-16.6); Lymphocytes # 2.1 10^3/uL (0.8-4.8); Lymphocytes % 44.4 %; Mean Corpuscular HGB Conc 33.4 g/dL (30.0-36.0); Mean Corpuscular Hemoglobin 30.5 pg (28.0-34.0); Mean Corpuscular Volume 91.2 fL (80-94); Mean Platelet Volume 10.6 fL (7.4-10.4); Monocytes # 0.4 10^3/uL (0.2-0.9); Monocytes % 8.2 %; Neutrophils # 1.92 10^3/uL (1.8-7.7); Neutrophils % 41.6 %; Nucleated Red Blood Cells % 0 %; Platelet Count 231 10^3/cmm (130-400); Red Blood Count 4.53 10^6/uL (4.1-5.3); Red Cell Distribution Width 13.7 % (12.1-15.1); White Blood Count 4.6 10^3/uL (4.0-10.0)
[2020-03-22 04:24] LABS: INR 0.91 (0.8-1.2)
--- NOTE | 2020-03-22 04:32 | PC.NURSE ---
pt BP responding to IV fluid bolus, drip rate reduced to TKO. Dr notified
[2020-03-22 04:33] LABS: Alanine Aminotransferase 8 U/L (0-41); Albumin Level 3.8 g/dL (3.5-5.2); Alkaline Phosphatase 74 IU/L (40-130); Aspartate Amino Transferase 13 U/L (0-40); Blood Urea Nitrogen 14 mg/dL (8-23); Calcium 9.4 mg/dL (8.5-10.5); Carbon Dioxide 25 mmol/L (22-29); Chloride 99 mmol/L (98-107); Globulin 2.7 g/dL (1.3-4.6); Glucose 300 mg/dL (65-115); Osmolality Calculated 294 mOsm/kg (285-295); Sodium 136 mmol/L (136-145); Total Bilirubin 0.4 mg/dL (0.15-1.2); Total Protein 6.5 g/dL (6.6-8.7)
[2020-03-22 04:40] LABS: Anion Gap 16.2 (5-19); Potassium 4.2 mmol/L (3.5-5.1)
[2020-03-22] MEDS: iohexol 300 mg/mL 100 mL Btl IV (05:10)
--- NOTE | 2020-03-22 05:43 | PC.NURSE ---
detention informed of pt preliminary findings
[2020-03-22 05:59] LABS: SARS Covid-2 Antigen Negative (Negative)
--- NOTE | 2020-03-22 07:15 | PC.NURSE ---
vo recd from Dr Cardona to d/c O2
--- NOTE | 2020-03-22 08:17 | PM.HP ---
Documented by User: ELIA Brand STDNT 03/22/20 09:38 Providers/Chief Complaint Admitting Physician: Jose G Tolbert MD Primary Care Provider: Nick Florian MD Chief Complaint: RT SHOULDER PAIN History of Present Illness Castro Coley is a 79 year old male presented to ED at 3am this morning c/o right humerus fracture due to a fall after trying to go to the bathroom on his own. The nurse from his skilled nursing stated they found him on the floor this morning, and denies that he had SOB or fever. The nurse also mentioned that he had COVID January 15 but has not had any other illness recently. Patient is hard of hearing and requests that his ears be cleaned out. He notes that he usually requires a walker to get around. 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 He denies any cough, hemoptysis, chest pain. Review of Systems General: Reports: 10 or more systems reviewed and unremarkable except in HPI and below Const: Denies: fever(s) or chills Eyes: Denies: change in vision ENMT: Denies: throat pain Card: Denies: chest pain Resp: Denies: dyspnea or productive cough GI: Denies: abdominal pain : Denies: flank pain Musc: Reports: extremity pain and extremity swelling; Denies: neck pain Skin/Breast: Denies: rash Neuro: Denies: headache(s) Psych: Denies: anxiety Endo: Denies: polyuria Cipriano/Lymph: Denies: easy bruising All/Imm: Denies: urticaria Medications/Allergies Home Medications Medication Instructions Recorded Confirmed Last Taken Type Aspir-81 81 mg PO DAILY #30 tab 11/01/19 11/18/19 Unknown Rx Colace 100 mg PO BID #30 cap 11/01/19 11/18/19 Unknown Rx Proventil HFA 2 inh INHALATION Q6H PRN #18 gm 11/01/19 11/18/19 Unknown Rx Symbicort 2 inh INHALATION BID #10.2 gm 11/01/19 11/18/19 Unknown Rx Tylenol Extra Strength 500 - 1,000 mg PO PRN PRN #30 tab 11/01/19 11/18/19 Unknown Rx bisacodyl 10 mg [place] DAILY PRN #30 each 11/01/19 11/18/19 Unknown Rx cetirizine 10 mg PO DAILY #30 tab 11/01/19 11/18/19 Unknown Rx cilostazol 100 mg PO BID #30 tab 11/01/19 11/18/19 Unknown Rx hydrocodone-acetaminophen 1 tab PO Q4H PRN #30 tab 11/01/19 11/18/19 Unknown Rx insulin glargine [Lantus Solostar 10 unit SUBCUT QPM #3 ml 11/01/19 11/18/19 Unknown Rx U-100 Insulin] insulin lispro [Humalog KwikPen 7 unit SUBCUT TID #3 ml 11/01/19 11/18/19 Unknown Rx Insulin] magnesium hydroxide [Milk of 5 ml PO DAILY PRN #30 ml 11/01/19 11/18/19 Unknown Rx Magnesia] polyethylene glycol 3350 [Miralax] 17 g PO DAILY #30 ea 11/01/19 11/18/19 Unknown Rx tamsulosin 0.4 mg PO BEDTIME #30 cap 11/01/19 11/18/19 Unknown Rx Allergies Allergy/AdvReac Type Severity Reaction Status Date / Time ibuprofen Allergy Mild Nausea Verified 11/18/19 08:47 tetanus toxoid, adsorbed Allergy Unknown Verified 11/18/19 08:47 PFSH Acute PFSH: Medical History (Updated 03/22/20 @ 09:42 by Nikolas Cardona MD) Constipation COPD (chronic obstructive pulmonary disease) Diabetes mellitus, type II Fall -unclear etiology -telemetry monitoring -VSS; continue to monitor Perineal abscess Pneumonia due to COVID-19 virus Urinary retention Surgical History History of back surgery History of carpal tunnel release of both wrists History of neck surgery S/P excisional debridement Family History Mother , AT AGE 65 Cancer Father , IN HIS 90'S No problems noted. Denies family history of Anesthesia complication Bleeding disorder Social History Smoking and tobacco status: former smoker Alcohol intake: current Alcohol intake frequency: few times a month Housing: [facility] Marital status: Number of children: 2 History of recent travel: No Vitals/I&O/Wt Last Vital Signs Temp 97.5 F L 03/22/20 03:25 Pulse 76 03/22/20 07:08 Resp 16 03/22/20 07:08 BP 107/67 03/22/20 07:08 Pulse Ox 100 03/22/20 07:08 Weight last 48 hrs Weight 58.967 kg Physical Exam Const: COMMON NORMALS: no acute distress, average body habitus, patient oriented x3 and alert GENERAL APPEARANCE: cooperative and comfortable HENMT: COMMON NORMALS: normocephalic and atraumatic HEAD & SCALP: normal to inspection NOSE: Normal external nose present GENERAL EAR: hearing grossly impaired (R ear is better than his left) Eye: COMMON NORMALS: Equal, round and reactive pupils present, EOMs intact bilaterally, conjunctivae normal and no scleral icterus GENERAL EYE: appearance normal, both eyes and all related structures and normal light reflex Neck/C-Spine: GENERAL: Yes normal visual inspection and Yes trachea midline Resp: COMMON NORMALS: normal respiratory effort, No retractions, No use of accessory muscles and clear to auscultation bilaterally EFFORT & INSPECTION: Yes able to speak in complete sentences and Yes symmetric chest movement Cardio: COMMON NORMALS: no JVD, regular rate, regular rhythm, S1 normal heart sound present, S2 normal heart sound present, No gallops present (Cardio), No clicks present (Cardio), No murmurs present (Cardio) and No rub (Cardio) PERIPHERAL PULSES: Peripheral pulses 2+ throughout Extremity: COMMON NORMALS: no clubbing, cyanosis or edema and no pedal edema GENERAL: Yes normal exam except as noted RIGHT UPPER EXTREMITY: Yes shoulder joint Right shoulder: Yes Right shoulder joint inspection exam (bruised, slightly swollen) and Yes Right shoulder joint ROM exam (restricted) and Yes hand & digits (Unable to fully extend 4th and 5th digit) LEFT UPPER EXTREMITY: Yes shoulder joint (normal ROM ) and Yes hand & digits (Able to fully extend and flex all digits) Data : 03/22/20 03:30 03/22/20 03:30 Other Labs: CT cervical spine negative for fracture Chest abdomen pelvis CT demonstrates some changes consistent with previous Covid, right pleural effusion Head CT no bleed Chest x-ray bilateral and confirmed filtrates consistent with previous Covid Shoulder x-ray comminuted right proximal humerus fracture Attestations Medical Necessity Statement*: Will need less than 2 nights stay for possible pulmonary contusion and right humerus fracture Coding Level of Care Code Acute Apartment Coordinator for [facility] Fwd Exam Detailed Diagnoses Recurrent right pleural effusion J90 Closed fracture of right proximal humerus S42.201A Documented by User: Nikolas Cardona MD 03/22/20 09:49 Providers/Chief Complaint Chief Complaint: RT SHOULDER PAIN Medications/Allergies Home Medications Medication Instructions Recorded Confirmed Last Taken Type Aspir-81 81 mg PO DAILY #30 tab 11/01/19 11/18/19 Unknown Rx Colace 100 mg PO BID #30 cap 11/01/19 11/18/19 Unknown Rx Proventil HFA 2 inh INHALATION Q6H PRN #18 gm 11/01/19 11/18/19 Unknown Rx Symbicort 2 inh INHALATION BID #10.2 gm 11/01/19 11/18/19 Unknown Rx Tylenol Extra Strength 500 - 1,000 mg PO PRN PRN #30 tab 11/01/19 11/18/19 Unknown Rx bisacodyl 10 mg [place] DAILY PRN #30 each 11/01/19 11/18/19 Unknown Rx cetirizine 10 mg PO DAILY #30 tab 11/01/19 11/18/19 Unknown Rx cilostazol 100 mg PO BID #30 tab 11/01/19 11/18/19 Unknown Rx hydrocodone-acetaminophen 1 tab PO Q4H PRN #30 tab 11/01/19 11/18/19 Unknown Rx insulin glargine [Lantus Solostar 10 unit SUBCUT QPM #3 ml 11/01/19 11/18/19 Unknown Rx U-100 Insulin] insulin lispro [Humalog KwikPen 7 unit SUBCUT TID #3 ml 11/01/19 11/18/19 Unknown Rx Insulin] magnesium hydroxide [Milk of 5 ml PO DAILY PRN #30 ml 11/01/19 11/18/19 Unknown Rx Magnesia] polyethylene glycol 3350 [Miralax] 17 g PO DAILY #30 ea 11/01/19 11/18/19 Unknown Rx tamsulosin 0.4 mg PO BEDTIME #30 cap 11/01/19 11/18/19 Unknown Rx Allergies Allergy/AdvReac Type Severity Reaction Status Date / Time ibuprofen Allergy Mild Nausea Verified 11/18/19 08:47 tetanus toxoid, adsorbed Allergy Unknown Verified 11/18/19 08:47 PFSH Acute PFSH: Medical History (Updated 03/22/20 @ 09:42 by Nikolas Cardona MD) Constipation COPD (chronic obstructive pulmonary disease) Diabetes mellitus, type II Fall -unclear etiology -telemetry monitoring -VSS; continue to monitor Perineal abscess Pneumonia due to COVID-19 virus Urinary retention Surgical History History of back surgery History of carpal tunnel release of both wrists History of neck surgery S/P excisional debridement Family History Mother , AT AGE 65 Cancer Father , IN HIS 90'S No problems noted. Denies family history of Anesthesia complication Bleeding disorder Social History Smoking and tobacco status: former smoker Alcohol intake: current Alcohol intake frequency: few times a month Housing: [facility] Marital status: Number of children: 2 History of recent travel: No Data : 03/22/20 03:30 03/22/20 03:30 A&P Assessment and plan (1) Recurrent right pleural effusion: Status: Acute (2) Closed fracture of right proximal humerus: Status: Acute Additional A&P Information Fall, from standing position history of COVID-19 pneumonia, diagnosed January 15. Diabetes mellitus COPD Multiple other medical problems as outlined in the past medical history Allow natural Hold anticoagulation secondary to possibility of pulmonary contusion. SCDs for DVT prophylaxis. Attestations Time Spent in Patient Care: Greater than 35 minutes Other Attestations: I reviewed, discussed with the patient the history of present illness and other parameters of a complete history and physical, examined the patient, formulated the assessment and plan with the medical student and agree with all of that stated above. Coding Level of Care Code Acute Apartment Coordinator for [facility] Fwd Exam Detailed Diagnoses Recurrent right pleural effusion J90 Closed fracture of right proximal humerus S46.201X
[2020-03-22] MEDS: sodium chloride 0.9% 1,000 ML 100 ML IV (09:49)
--- NOTE | 2020-03-22 10:30 | PC.CHAP ---
Pastoral Care Encounter/Spiritual Assessment Type of Contact [x] Declined traffic coordinator visit [] Patient/Family/Request visit [] Outpatient visit [] Follow-up visit [] Physician referral [] Code/Alert [] Routine visit [] Staff referral [] Actively dying [] Patient sleeping [] Family support [] [] Out of room [] Palliative care [] [] Receiving care in room [] Pre-surgical visit [] Trauma [] Long length of stay [] ICU visit [] Other: Relational/Emotional Strength [] Patient feels connected with others/family/visitors/staff [] Distress [] Loneliness/isolation [] Abandonment Spirituality of Patient [] Person of Yvonne [] Attends Buddhist of their Yvonne [] Believes in Prayer [] Reads Bible or Yazidi materials [] There are Spiritual issues to be addressed Engineering Writer Interventions [] Prayer [] Active listening [] Non-anxious presence [] Spiritual/emotional support [] Crisis/trauma care [] Spiritual counseling [] Bereavement support [] Provided bereavement packet [] Provided Bible/devotional materials [] Provided toy/stuffed animal, coloring book to patient or family member [] Provided Communion [] Anointing/[place] [] Salvation [] Completed spiritual assessment [] Other: Impact on Illness or Injury [] Angry [] Fearful [] Anxious [] Often cries [] Exhaustion [] Unable to work [] Unable to attend yazdanism [] Unable to walk/stand [] Unable to read [] Unable to drive [] Unable to eat/drink [] Unable to sleep [] Unable to be with family [] Patient intubated [] Other: Summary Declined traffic coordinator visit Time spent with patient 5 mins
[2020-03-22 11:08] LABS: NT Pro B Type Natriuretic Pept 182 pg/mL (0-450)
[2020-03-22 12:04] LABS: Glucose Point of Care 242 mg/dL (70-110)
[2020-03-22] MEDS: HYDROcodone-acetaminophen 5-325 mg Tablet 1 TAB PO ×2 (13:07→17:49)
--- NOTE | 2020-03-22 15:22 | PC.NURSE ---
consent from pt to talk to pt's son. talked to pt's son, Jon, over the phone and he explained that pt is from [facility] and has a history of dementia and HTN. notified Dr. Cardona.
[2020-03-22 16:50] LABS: Glucose Point of Care 263 mg/dL (70-110)
[2020-03-22 17:01] LABS: Glucose Point of Care 286 mg/dL (70-110)
--- NOTE | 2020-03-22 17:35 | PC.PT ---
PT note; unable to arouse patient for meaningful participation with physical therapy, patient would not wake up for dinner either, will reattempt tomorrow
--- NOTE | 2020-03-22 17:36 | PM.CONSULT ---
Providers/Reason For Consult Consulting Physican/Specialty*: Wang Leon MD; orthopedic surgeon Reason for Consult*: Right proximal humerus fracture Attending Physician: Nikolas Cardona MD Primary Care Provider: Nick Florian MD History of Present Illness History of Present Illness Castro Coley is a 79 year old male who fell last night attempting to get to the bathroom. Usually requires a walker to get around and apparently did not have his walker available. He presented to the emergency room today complaining of right shoulder pain. Work-up in the emergency room revealed a right pleural effusion and concerns were raised about a luminary contusion and he was admitted to the medicine service. I have been asked to see the patient regarding treatment of his fracture Meds/Allergies Home Medications and Allergies Home Medications Medication Instructions Recorded Confirmed Last Taken Type Aspir-81 81 mg PO DAILY #30 tab 11/01/19 11/18/19 Unknown Rx Colace 100 mg PO BID #30 cap 11/01/19 11/18/19 Unknown Rx Proventil HFA 2 inh INHALATION Q6H PRN #18 gm 11/01/19 11/18/19 Unknown Rx Symbicort 2 inh INHALATION BID #10.2 gm 11/01/19 11/18/19 Unknown Rx Tylenol Extra Strength 500 - 1,000 mg PO PRN PRN #30 tab 11/01/19 11/18/19 Unknown Rx bisacodyl 10 mg [place] DAILY PRN #30 each 11/01/19 11/18/19 Unknown Rx cetirizine 10 mg PO DAILY #30 tab 11/01/19 11/18/19 Unknown Rx cilostazol 100 mg PO BID #30 tab 11/01/19 11/18/19 Unknown Rx hydrocodone-acetaminophen 1 tab PO Q4H PRN #30 tab 11/01/19 11/18/19 Unknown Rx insulin glargine [Lantus Solostar 10 unit SUBCUT QPM #3 ml 11/01/19 11/18/19 Unknown Rx U-100 Insulin] insulin lispro [Humalog KwikPen 7 unit SUBCUT TID #3 ml 11/01/19 11/18/19 Unknown Rx Insulin] magnesium hydroxide [Milk of 5 ml PO DAILY PRN #30 ml 11/01/19 11/18/19 Unknown Rx Magnesia] polyethylene glycol 3350 [Miralax] 17 g PO DAILY #30 ea 11/01/19 11/18/19 Unknown Rx tamsulosin 0.4 mg PO BEDTIME #30 cap 11/01/19 11/18/19 Unknown Rx Allergies Allergy/AdvReac Type Severity Reaction Status Date / Time ibuprofen Allergy Mild Nausea Verified 11/18/19 08:47 tetanus toxoid, adsorbed Allergy Unknown Verified 11/18/19 08:47 Current Medications Current Medications Generic Name Dose Route Start Last Admin Trade Name Freq PRN Reason Stop Dose Admin Hydrocodone Bitart/Acetaminophen 1 tab 03/22/20 09:50 03/22/20 13:07 Hydrocodone-Acetaminophen 5-325 Mg Tablet PO 1 tab Q4H PRN Administration MODERATE TO SEVERE PAIN Insulin Aspart 0 unit 03/22/20 12:00 03/22/20 12:08 Insulin Aspart 100 Unit/1 Ml SUBCUT 6 unit WM&BEDTIME MARIAJOSE Administration Protocol PFSH Acute PFSH: Medical History (Updated 03/22/20 @ 09:42 by Nikolas Cardona MD) Constipation COPD (chronic obstructive pulmonary disease) Diabetes mellitus, type II Fall -unclear etiology -telemetry monitoring -VSS; continue to monitor Perineal abscess Pneumonia due to COVID-19 virus Urinary retention Surgical History History of back surgery History of carpal tunnel release of both wrists History of neck surgery S/P excisional debridement Family History Mother , AT AGE 65 Cancer Father , IN HIS 90'S No problems noted. Denies family history of Anesthesia complication Bleeding disorder Social History Smoking and tobacco status: former smoker Alcohol intake: current Alcohol intake frequency: few times a month Housing: [facility] Marital status: Number of children: 2 History of recent travel: No Vitals/I&O/Wt Last Vital Signs Temp 98.4 F 03/22/20 15:17 Pulse 64 03/22/20 15:17 Resp 18 03/22/20 15:17 BP 147/71 03/22/20 15:17 Pulse Ox 97 03/22/20 15:17 03/22/20 03/22/20 03/22/20 06:59 14:59 22:59 Intake Total 1220 / 1220 Output Total 400 / 400 Balance 1220 / 1220 -400 / 820 Weight last 48 hrs Weight 130 lb Physical Exam Narrative: EXAM NARRATIVE: Mr. Coley hard of hearing but generally a reasonable historian. He describes the events of his fall with good recollection. He has marked swelling of his right proximal humerus extending approximately to his elbow with ecchymoses about the shoulder. The right proximal humerus is tender to touch and there is pain with any motion. He will fire his deltoid biceps and triceps but is limited by pain. He seems to have full active motion of his wrist and digits of the right hand. He has a strong right radial pulse. His sensation is intact to light touch. Data Imaging^: Xray Ortho: My impression: I reviewed radiographs of the right humerus. The patient has a comminuted fracture of the proximal humerus but overall alignment is very reasonable. There is no appreciable tuberosity displacement. A&P Additional A&P Information Nondisplaced fracture right proximal humerus. We will have occupational therapy begin him on pendulum exercises of the right shoulder and active range of motion of the elbow wrist and hand. He can continue with his immobilizer. He is stable for discharge back to his care home. He will need follow-up with me in 2 weeks with repeat radiographs. Coding Level of Care Code Acute Student Services Vice President for [facility]
[2020-03-22] MEDS: docusate sodium 100 mg Capsule PO (17:45)
[2020-03-22] MEDS: acetaminophen 325 mg Tablet 650 MG PO (20:28)
[2020-03-22] MEDS: tamsulosin 0.4 mg Capsule PO (20:28)
[2020-03-22 22:02] LABS: Glucose Point of Care 230 mg/dL (70-110)
[2020-03-22] MEDS: insulin glargine 100 units/1 mL 10 UNIT SUBCUT (22:19)
[2020-03-23] VITALS (8 sets, daily range): BP systolic 112–143; BP diastolic 62–78; PULSE 68–96; RESP 16–24; TEMP 36.6–37; O2SAT 93–98
[2020-03-23 05:36] LABS: Basophils % 0.6 %; Eosinophils # 0.1 10^3/uL (0.0-0.8); Eosinophils % 1.4 %; Hematocrit 35.4 % (42.0-52.0); Hemoglobin 11.8 g/dL (11.7-16.6); Lymphocytes # 0.9 10^3/uL (0.8-4.8); Lymphocytes % 18.2 %; Mean Corpuscular HGB Conc 33.3 g/dL (30.0-36.0); Mean Corpuscular Hemoglobin 30.9 pg (28.0-34.0); Mean Corpuscular Volume 92.7 fL (80-94); Mean Platelet Volume 10.7 fL (7.4-10.4); Monocytes # 0.5 10^3/uL (0.2-0.9); Monocytes % 9.6 %; Neutrophils # 3.41 10^3/uL (1.8-7.7); Neutrophils % 69.8 %; Nucleated Red Blood Cells % 0 %; Platelet Count 204 10^3/cmm (130-400); Red Blood Count 3.82 10^6/uL (4.1-5.3); Red Cell Distribution Width 13.5 % (12.1-15.1); White Blood Count 4.9 10^3/uL (4.0-10.0)
[2020-03-23 06:06] LABS: Alanine Aminotransferase 6 U/L (0-41); Albumin Level 3.6 g/dL (3.5-5.2); Alkaline Phosphatase 66 IU/L (40-130); Anion Gap 13.4 (5-19); Aspartate Amino Transferase 10 U/L (0-40); Blood Urea Nitrogen 15 mg/dL (8-23); Calcium 9.1 mg/dL (8.5-10.5); Carbon Dioxide 25 mmol/L (22-29); Chloride 102 mmol/L (98-107); Globulin 2.3 g/dL (1.3-4.6); Glucose 307 mg/dL (65-115); Osmolality Calculated 294 mOsm/kg (285-295); Potassium 4.4 mmol/L (3.5-5.1); Sodium 136 mmol/L (136-145); Total Bilirubin 0.3 mg/dL (0.15-1.2); Total Protein 5.9 g/dL (6.6-8.7)
[2020-03-23 06:36] LABS: Glucose Point of Care 279 mg/dL (70-110)
--- NOTE | 2020-03-23 07:00 | XR_ITS ---
WS: [id number] Portable AP upright chest, 03/23/2020 Clinical Data: resp failure Comparison: Portable chest, 03/22/2020 Findings: The right lung opacity remains the same. There is still minimal opacity in the left lower l obe. The heart size remains the same. The comminuted fracture of the right humeral head and right hum eral neck remain unchanged. Monitor leads are on the chest wall. XR/XR chest 1V portable [id number] Impression: 1. No change in right lung opacity and left lower lobe opacity. 2. No change in comminuted right humeral head and neck fracture.
[2020-03-23] MEDS: polyethylene glycol 3350 Pkt 17 gm PO (09:01)
[2020-03-23] MEDS: docusate sodium 100 mg Capsule PO (09:02)
[2020-03-23] MEDS: acetaminophen 325 mg Tablet 650 MG PO (09:17)
--- NOTE | 2020-03-23 09:36 | PC.CHAP ---
Pastoral Care Encounter/Spiritual Assessment Type of Contact [] Declined battery builder visit [] Patient/Family/Request visit [] Outpatient visit [] Follow-up visit [] Physician referral [] Code/Alert [] Routine visit [] Staff referral [] Actively dying [] Patient sleeping [] Family support [] [] Out of room [] Palliative care [] [] Receiving care in room [] Pre-surgical visit [] Trauma [] Long length of stay [] ICU visit [] Other: Relational/Emotional Strength [] Patient feels connected with others/family/visitors/staff [] Distress [] Loneliness/isolation [] Abandonment Spirituality of Patient [x] Person of Yvonne [] Attends Rastafarian of their Yvonne [] Believes in Prayer [] Reads Bible or Yarsani materials [] There are Spiritual issues to be addressed [employer] Sorting Machine Feeder Interventions [x] Prayer [x] Active listening [] Non-anxious presence [] Spiritual/emotional support [] Crisis/trauma care [] Spiritual counseling [] Bereavement support [] Provided bereavement packet [] Provided Bible/devotional materials [] Provided toy/stuffed animal, coloring book to patient or family member [] Provided Communion [] Anointing/[place] [] Salvation [] Completed spiritual assessment [] Other: Impact on Illness or Injury [] Angry [] Fearful [] Anxious [] Often cries [] Exhaustion [] Unable to work [] Unable to attend christianity [] Unable to walk/stand [] Unable to read [] Unable to drive [] Unable to eat/drink [] Unable to sleep [] Unable to be with family [] Patient intubated [] Other: Summary feeling better today Time spent with patient 10 min
--- NOTE | 2020-03-23 09:53 | PM.DCS ---
Discharge Providers Date of Admission: 03/22/20 06:23 Date of Discharge: March 23, 2020 Attending Provider at Admission: Jose G Tolbert MD Attending Provider at Discharge: Nikolas Cardona MD Primary Care Provider: Nick Florian MD Diagnoses at Discharge Discharge Diagnosis (1) Recurrent right pleural effusion: Status: Acute (2) Closed fracture of right proximal humerus: Status: Acute Reason for Visit Reason for Visit: RT SHOULDER PAIN Hospital Course Hospital Course Castro is a 79-year-old white male who presented to the hospital after a fall at the nursing facility where he sustained a right proximal humerus fracture. During his emergency department evaluation, he was found to have infiltrates on his chest x-ray. There was a small right pleural effusion. There was concern he might have pulmonary contusion. He was placed in observation status to monitor overnight. He had previously had Covid, at the end of December. The changes in his x-ray are likely secondary to this. The effusion could be related to pulmonary contusion. However, the patient had no shortness of breath, oxygen requirement, chest discomfort. The following day chest x-ray was repeated without change and it was thought the patient was safe to discharge back to the half-way facility. Orthopedics saw the patient, recommended exercises, sling and immobilization, and follow-up in 2 weeks. Physical Exam Narrative: EXAM NARRATIVE: General exam no apparent distress Cardiovascular regular rate and rhythm Lungs clear no wheezing or crackles Abdomen is soft with positive bowel sounds Extremities no cyanosis clubbing or edema. Right arm in sling Discharge Data Data Completed and Pending: Completed Studies During Hospitalization Category Date Time Status CT cervical spin wo con* [id number] Urge nt Cat Scan 03/22/20 04:[address] chest abd pel w con* Stat Cat Scan 03/22/20 03:[address] head wo con* 7 0450 Stat Cat Scan 03/22/20 03:33 Completed XR chest 1V marquez ble [id number] Routine Exams 03/23/20 07:00 Completed XR chest 1V marquez ble [id number] Stat Exams 03/22/20 03:30 Completed XR humerus RT 730 60 Stat Exams 03/22/20 03:29 Completed XR shoulder RT mi n 2V* [id number] Stat Exams 03/22/20 03:29 Completed Labs from last 24 hours 03/23/20 03/23/20 03/23/20 06:17 04:33 04:33 WBC 4.9 RBC 3.82 L Hgb 11.8 Hct 35.4 L MCV 92.7 MCH 30.9 MCHC 33.3 RDW 13.5 Plt Count 204 MPV 10.7 H Neut % (Auto) 69.8 Lymph % (Auto) 18.2 [place] % (Auto) 9.6 Eos % (Auto) 1.4 Baso % (Auto) 0.6 Neut # (Auto) 3.41 Lymph # (Auto) 0.9 [place] # (Auto) 0.5 Eos # (Auto) 0.1 Baso # (Auto) 0.0 Nucleated RBC % (a uto) 0 Nucleated RBCs # 0.0 Sodium 136 Potassium 4.4 Chloride 102 Carbon Dioxide 25 Anion Gap 13.4 BUN 15 Creatinine 0.8 GFR Calculation Not Reportable Glucose 307 H POC Glucose 279 Calculated Osmolal ity 294 Calcium 9.1 Total Bilirubin 0.3 AST 10 ALT 6 Alkaline Phosphata se 66 NT-Pro-B Natriuret Pep Total Protein 5.9 L Albumin 3.6 Globulin 2.3 03/22/20 03/22/20 03/22/20 21:58 16:33 12:01 WBC RBC Hgb Hct MCV MCH MCHC RDW Plt Count MPV Neut % (Auto) Lymph % (Auto) [place] % (Auto) Eos % (Auto) Baso % (Auto) Neut # (Auto) Lymph # (Auto) [place] # (Auto) Eos # (Auto) Baso # (Auto) Nucleated RBC % (a uto) Nucleated RBCs # Sodium Potassium Chloride Carbon Dioxide Anion Gap BUN Creatinine GFR Calculation Glucose POC Glucose 230 286 242 Calculated Osmolal ity Calcium Total Bilirubin AST ALT Alkaline Phosphata se NT-Pro-B Natriuret Pep Total Protein Albumin Globulin 03/22/20 03/22/20 11:11 03:30 WBC RBC Hgb Hct MCV MCH MCHC RDW Plt Count MPV Neut % (Auto) Lymph % (Auto) [place] % (Auto) Eos % (Auto) Baso % (Auto) Neut # (Auto) Lymph # (Auto) [place] # (Auto) Eos # (Auto) Baso # (Auto) Nucleated RBC % (a uto) Nucleated RBCs # Sodium Potassium Chloride Carbon Dioxide Anion Gap BUN Creatinine GFR Calculation Glucose POC Glucose 263 Calculated Osmolal ity Calcium Total Bilirubin AST ALT Alkaline Phosphata se NT-Pro-B Natriuret Pep 182 Total Protein Albumin Globulin Vitals: Last Vital Signs Temp 97.9 F 03/23/20 08:55 Pulse 87 03/23/20 08:55 Resp 16 03/23/20 08:55 BP 143/78 03/23/20 08:55 Pulse Ox 96 03/23/20 08:55 Discharge Plan Discharge Patient Disposition: Xfer SNF Condition: Stable Prescriptions: Continued Miralax 17 gram Powder In Packet 17 g PO DAILY Qty: 30 RF: 0 Lantus Solostar U-100 Insulin 100 unit/mL (3 mL) insulin pen 10 unit SUBCUT QPM Qty: 3 RF: 0 Humalog KwikPen Insulin 100 unit/mL insulin pen 7 unit SUBCUT TID Qty: 3 RF: 0 cilostazol 100 mg tablet 100 mg PO BID Qty: 30 RF: 0 cetirizine 10 mg tablet 10 mg PO DAILY Qty: 30 RF: 0 Aspir-81 81 mg Tablet,Delayed Release (Dr/Ec) 81 mg PO DAILY Qty: 30 RF: 0 Tylenol Extra Strength 500 mg Tablet 500 - 1,000 mg PO PRN PRN (Reason: Pain, Mild) Qty: 30 RF: 0 Milk of Magnesia 400 mg/5 mL suspension 5 ml PO DAILY PRN (Reason: Constipation) Qty: 30 RF: 0 tamsulosin 0.4 mg capsule 0.4 mg PO BEDTIME Qty: 30 RF: 0 bisacodyl 10 mg suppository 10 mg [place] DAILY PRN (Reason: Constipation) Qty: 30 RF: 0 Colace 100 mg capsule 100 mg PO BID Qty: 30 RF: 0 Proventil HFA 90 mcg/actuation HFA aerosol inhaler 2 inh INHALATION Q6H PRN (Reason: shortness of breath or wheezing) Qty: 18 RF: 0 Symbicort 80-4.5 mcg/actuation HFA aerosol inhaler 2 inh INHALATION BID Qty: 10.2 RF: 0 hydrocodone-acetaminophen 5-325 mg tablet 1 tab PO Q4H PRN (Reason: Pain) Qty: 30 RF: 0 Discharge Orders: Discharge Order (Routine); Ordered 03/23/20 Ordered By: Nikolas Cardona Referrals: Nick Florian MD [Primary Care Provider] - 4-7 days (Primary care provider at [facility]-way [facility]) Wang Leon MD [Physician] - 2 weeks Discharge Diet: Usual diet Discharge Activity: Increase activity as tolerated Activity Restrictions/Additional Instructions: PT orders for right humerus fracture as per Ortho at nursing facility Repeat chest x-ray, 4 weeks for follow-up of small right pleural effusion Discharge Attestations Time Spent in Discharge Care*: greater than 30 min Status at Discharge: Cognitive status at discharge: cognitively intact, Behavioral status at discharge: cooperative, Quality Metrics Clinical Quality Measures During this hospital stay, did patient experience: None Coding Level of Care Code Acute Senior Speech Pathologist for [place] [facility]wd Diagnoses Recurrent right pleural effusion J90 Closed fracture of right proximal humerus S42.995W
[2020-03-23 11:04] LABS: Glucose Point of Care 351 mg/dL (70-110)
== END 2020-03-23 12:55 | disposition skilled nursing facility (03) ==
LOC: ER 04:16 → MEDSURG 06:49
PROVIDERS: Admitting Provider Internal Medicine; Emergency Provider Emergency Medicine; PCP Family Medicine; Visit Provider Internal Medicine
DX: J90 Pleural effusion, not elsewhere classified (principal); S42.201A Unspecified fracture of upper end of right humerus, initial encounter for closed fracture; W19.XXXA Unspecified fall, initial encounter; Y92.121 Bathroom in nursing home as the place of occurrence of the external cause; J44.9 Chronic obstructive pulmonary disease, unspecified; E11.9 Type 2 diabetes mellitus without complications; Z79.82 Long term (current) use of aspirin; Z87.891 Personal history of nicotine dependence; Z79.4 Long term (current) use of insulin
CPT/HCPCS: 12345; 36415; 36416; 70450; 71045; 71260; 72125; 73030; 73060; 74177; 80053; 82962; 83880; 85025; 85610; 85730; 87426; 96360; 96361; 96372; 96374; 96375; 97116; 97161; 97167; 97530; 99283; 99285; G0378; J0131; J1815 ×2; J2270; J2405; J7030; Q9967

== ENCOUNTER → 2020-05-02 10:06 | Outpatient (BNVA) | payer MEDICARE, MEDICAID, SELFPAY | PROVIDERS: PCP Family Medicine; Visit Provider Orthopaedic Surgery | DX: S42.201D Unspecified fracture of upper end of right humerus, subsequent encounter for fracture with routine healing (principal); X58.XXXD Exposure to other specified factors, subsequent encounter | CPT/HCPCS: 73060 ==

== ENCOUNTER → 2020-05-30 09:56 | Outpatient (BNVA) | payer MEDICARE, MEDICAID, SELFPAY | PROVIDERS: PCP Family Medicine; Visit Provider Orthopaedic Surgery | DX: Z47.89 Encounter for other orthopedic aftercare (principal); S42.201D Unspecified fracture of upper end of right humerus, subsequent encounter for fracture with routine healing; W19.XXXD Unspecified fall, subsequent encounter | CPT/HCPCS: 73030 ==

== ENCOUNTER 2020-12-12 12:23 | Outpatient (CLI) | payer MEDICAID, SELFPAY ==
[2020-12-12 12:55] LABS: Add Urine Microscopic? YES; Bilirubin Urine Neg (Negative); Blood Urine 3+ (Negative); Glucose Urine UA Norm (Normal); Ketones Urine Negative (Negative); Leukocyte Esterase Urine 2+ (Negative); Nitrate Urine Negative (Negative); Protein Urine Neg (Negative); Specific Gravity, Urine 1.005 (1.005-1.030); Urine Appearance Clear (CLEAR); Urine Color Yellow (Yellow); Urobilinogen Urine Neg (Negative); pH Urine 7 (5-7)
[2020-12-12 12:56] LABS: Add Urine Culture? Yes; Bacteria Urine 1+ /hpf; RBC Urine 0-4 /hpf (0-2); Squamous Epithelial Cell Urine 0-4 /hpf (0-5)
[2020-12-12 13:05] LABS: Basophils % 0.7 %; Eosinophils # 0.1 10^3/uL (0.0-0.8); Eosinophils % 1.2 %; Hematocrit 38.7 % (42.0-52.0); Hemoglobin 13.2 g/dL (11.7-16.6); Lymphocytes # 0.9 10^3/uL (0.8-4.8); Lymphocytes % 15.6 %; Mean Corpuscular HGB Conc 34.1 g/dL (30.0-36.0); Mean Corpuscular Hemoglobin 32.1 pg (28.0-34.0); Mean Corpuscular Volume 94.2 fl (80-94); Mean Platelet Volume 10.5 fL (7.4-10.4); Monocytes # 0.3 10^3/uL (0.2-0.9); Monocytes % 5.5 %; Neutrophils # 4.55 10^3/uL (1.8-7.7); Neutrophils % 76.5 %; Nucleated Red Blood Cells % 0 %; Platelet Count 183 10^3/cmm (130-400); Red Blood Count 4.11 10^6/uL (4.1-5.3); Red Cell Distribution Width 13.9 % (12.1-15.1)
[2020-12-12 13:23] LABS: Alanine Aminotransferase 10 U/L (0-41); Albumin Level 3.8 g/dL (3.5-5.2); Alkaline Phosphatase 62 IU/L (40-130); Anion Gap 13.1 (5-19); Aspartate Amino Transferase 13 U/L (0-40); Blood Urea Nitrogen 20 mg/dL (8-23); Calcium 8.6 mg/dL (8.5-10.5); Carbon Dioxide 30 mmol/L (22-29); Chloride 102 mmol/L (98-107); Globulin 2.5 g/dL (1.3-4.6); Glucose 52 mg/dL (65-115); Osmolality Calculated 292 mOsm/kg (285-295); Potassium 4.1 mmol/L (3.5-5.1); Sodium 141 mmol/L (136-145); Total Bilirubin 0.2 mg/dL (0.15-1.2); Total Protein 6.3 g/dL (6.6-8.7)
== END 2020-12-12 12:24 | disposition home or self-care (01) ==
LOC: LAB 12:28
PROVIDERS: PCP Family Medicine; Visit Provider Internal Medicine
DX: R06.82 Tachypnea, not elsewhere classified (principal)
CPT/HCPCS: 80053; 81001; 85025; 87086

== ENCOUNTER 2021-05-27 13:59 | Emergency (ER) | payer MEDICARE, MEDICAID, SELFPAY ==
[2021-05-27 14:21] VITALS: BP 189/76; PULSE 100; RESP 20; TEMP 36.2; O2SAT 96
--- NOTE | 2021-05-27 14:32 | ED_ITS ---
Documented by User: Rohith Walker DO 05/28/21 07:57 HPI - Nausea/Vomiting/Diarrhea General: Chief complaint: Headache Stated complaint: N/V, SHAKING Time Seen by Provider: 05/27/21 14:30 Source: patient Mode of arrival: ambulatory History of Present Illness: 81-year-old male presents emergency room with complaint of nausea and vomiting. [facility] There is no report of fall or trauma no obvious head injury. Patient is extremely hard of hearing he is able to tell us that he has had some nausea vomiting but not really much else COVID report we got he has some moderate dementia he is not on any anticoagulants. He denies any chest pain or abdominal pain. Symptoms of nausea vomiting shaking began shortly after eating today's not really having any tremor at this time. MD elicited complaint: nausea, vomiting and other (Tremor) Onset (ago): hour(s) Description of vomiting: food contents Associated nausea: Yes Associated abdominal pain: No Location of pain: None Radiation: diffuse Severity: mild Exacerbating factors: none Relieving factors: none Associated symtoms: Reports altered mental status and nausea; Denies anxiety, bloating, change in vision, chest pain, cough, diaphoresis, decreased urine output, dizziness, dysuria, epistaxis, fatigue, fecal incontinence, fevers/chills, headache(s), anorexia, malaise, myalgias, numbness, palpitations, rash, short of breath, syncope, tenesmus, tinnitus or weakness Review of Systems Const: Denies: fatigue, malaise or diaphoresis Eyes: Denies: change in vision ENMT: Denies: tinnitus or epistaxis Card: Denies: chest pain, palpitations or syncope Resp: Denies: dyspnea, productive cough or non-productive cough GI: Reports: nausea; Denies: bloating or fecal incontinence : Denies: dysuria Skin/Breast: Denies: rash or pruritus Neuro: Denies: headache(s) or dizziness Psych: Denies: anxiety PFSH ED PFSH: Medical History Constipation COPD (chronic obstructive pulmonary disease) Diabetes mellitus, type II Fall -unclear etiology -telemetry monitoring -VSS; continue to monitor Perineal abscess Pneumonia due to COVID-19 virus Urinary retention Surgical History History of back surgery History of carpal tunnel release of both wrists History of neck surgery S/P excisional debridement Family History Mother , AT AGE 65 Cancer Father , IN HIS 90'S No problems noted. Denies family history of Anesthesia complication Bleeding disorder Social History Smoking and tobacco status: former smoker Alcohol intake: current Alcohol intake frequency: few times a month Housing: Jail Marital status: Number of children: 2 History of recent travel: No Physical Exam Const: EXAM LIMITATIONS: altered mental status GENERAL APPEARANCE: cooperative and comfortable ORIENTATION/CONSCIOUSNESS: Yes awake, Yes oriented to person, Yes oriented to place and Yes oriented to time HENMT: COMMON NORMALS: normocephalic and atraumatic HEAD & SCALP: normocephalic and atraumatic Neck/C-Spine: COMMON NORMALS: no JVD Resp: COMMON NORMALS: normal respiratory effort, No retractions, No use of accessory muscles and clear to auscultation bilaterally AUSCULTATION: clear to auscultation bilaterally Cardio: COMMON NORMALS: no JVD, regular rate, regular rhythm and No murmurs present (Cardio) RATE: regular rate RHYTHM: regular rhythm GI: COMMON NORMALS: Soft to palpation and No hepatosplenomegaly present AUSCULTATION: Yes normoactive bowel sounds PALPATION: Yes Soft to palpation, No Tenderness to palpation present (GI), No Guarding due to palpation present (GI) and Yes No hepatosplenomegaly present Extremity: COMMON NORMALS: normal to inspection, capillary refill normal, no clubbing, cyanosis or edema, no calf tenderness and no pedal edema Neuro: SENSORIUM/ORIENTATION: Yes oriented to person, Yes oriented to place and Yes oriented to time Skin: COMMON NORMALS: no rashes or lesions noted GENERAL SKIN EXAM: no rashes or lesions noted Course Vital Signs: Vital signs: Vital Signs Temperature 97.2 F L 05/27/21 14:21 Pulse Rate 97 05/27/21 18:51 Respiratory Rate 20 H 05/27/21 18:51 Blood Pressure 159/80 05/27/21 18:51 Pulse Oximetry 96 05/27/21 18:51 MDM - Nausea/Vomiting/Diarrhea Medical Decision Making Care turned over Dr. arredondo status from diagnosis and disposition. [facility] with increasing confusion he is wearing 2 L of oxygen here as well x-ray shows worsening pneumonia on the right side could be an aspiration pneumonia from his vomiting pneumonia also seen on the CT of his abdomen pelvis. Patient started on IV antibiotics spoke to hospitalist will admit. Lab Data : 05/27/21 15:30 05/27/21 15:[address] 05/27/21 15:11 IMPRESSION: 1. No acute intracranial hemorrhage or edema. 2. Moderate atrophy and chronic ischemic type changes. 3. Mild ventriculomegaly has progressed since 03/22/2020. Likely on the basis of atrophy. 4. LEFT mastoid effusion. Abdomen/Pelvis CT 05/27/21 15:46 IMPRESSION: 1. Right middle and lower lobe consolidation consistent with pneumonia. 2. Patchy cortical hypoenhancement in both kidneys suggests pyelonephritis. 3. Incidental findings above. Chest X-Ray 05/27/21 17:31 IMPRESSION: Right lung consolidation suggests pneumonia. Laboratory Results WBC 9.5 10^3/uL (4.0-10.0) 05/27/21 15:30 RBC 4.45 10^6/uL (4.1-5.3) 05/27/21 15:30 Hgb 14.2 g/dL (11.7-16.6) 05/27/21 15:30 Hct 43.0 % (42.0-52.0) 05/27/21 15:30 MCV 96.6 fl (80-94) H 05/27/21 15:30 MCH 31.9 pg (28.0-34.0) 05/27/21 15:30 MCHC 33.0 g/dL (30.0-36.0) 05/27/21 15:30 RDW 13.7 % (12.1-15.1) 05/27/21 15:30 Plt Count 199 10^3/cmm (130-400) 05/27/21 15:30 MPV 9.9 fL (7.4-10.4) 05/27/21 15:30 Neut % (Auto) 92.0 % 05/27/21 15:30 Lymph % (Auto) 4.6 % 05/27/21 15:30 [place] % (Auto) 2.3 % 05/27/21 15:30 Eos % (Auto) 0.1 % 05/27/21 15:30 Baso % (Auto) 0.5 % 05/27/21 15:30 Neut # (Auto) 8.73 10^3/uL (1.8-7.7) H 05/27/21 15:30 Lymph # (Auto) 0.4 10^3/uL (0.8-4.8) L 05/27/21 15:30 [place] # (Auto) 0.2 10^3/uL (0.2-0.9) 05/27/21 15:30 Eos # (Auto) 0.0 10^3/uL (0.0-0.8) 05/27/21 15:30 Baso # (Auto) 0.1 10^3/uL (0.0-0.1) 05/27/21 15:30 Nucleated RBC % (auto) 0 % 05/27/21 15:30 Nucleated RBCs # 0.0 /100WBC 05/27/21 15:30 Sodium 139 mmol/L (136-145) 05/27/21 15:30 Potassium 4.2 mmol/L (3.5-5.1) 05/27/21 15:30 Chloride 101 mmol/L (98-107) 05/27/21 15:30 Carbon Dioxide 26 mmol/L (22-29) 05/27/21 15:30 Anion Gap 16.2 (5-19) 05/27/21 15:30 BUN 20 mg/dL (8-23) 05/27/21 15:30 Creatinine 1.1 mg/dL (0.7-1.2) 05/27/21 15:30 GFR Calculation Not Reportable 05/27/21 15:30 Glucose 168 mg/dL (65-115) H 05/27/21 15:30 Calculated Osmolality 294 mOsm/kg (285-295) 05/27/21 15:30 Calcium 8.8 mg/dL (8.5-10.5) 05/27/21 15:30 Total Bilirubin 0.3 mg/dL (0.15-1.2) 05/27/21 15:30 AST 12 U/L (0-40) 05/27/21 15:30 ALT 8 U/L (0-41) 05/27/21 15:30 Alkaline Phosphatase 81 IU/L (40-130) 05/27/21 15:30 Total Protein 6.6 g/dL (6.6-8.7) 05/27/21 15:30 Albumin 4.3 g/dL (3.5-5.2) 05/27/21 15:30 Globulin 2.3 g/dL (1.3-4.6) 05/27/21 15:30 Urine Color Yellow (Yellow) 05/27/21 16:42 Urine Appearance Clear (CLEAR) 05/27/21 16:42 Urine pH 5 (5-7) 05/27/21 16:42 Ur Specific [place] 1.010 (1.005-1.030) 05/27/21 16:42 Urine Protein Neg (Negative) 05/27/21 16:42 Urine Glucose (UA) 4+ (Normal) H 05/27/21 16:42 Urine Ketones Negative (Negative) 05/27/21 16:42 Urine Blood Neg (Negative) 05/27/21 16:42 Urine Nitrate Negative (Negative) 05/27/21 16:42 Urine Bilirubin Neg (Negative) 05/27/21 16:42 Urine Urobilinogen Norm mg/dL (Negative) 05/27/21 16:42 Ur Leukocyte Esterase Negative (Negative) 05/27/21 16:42 SARS-CoV-2 Ag (Rapid) Negative (Negative) 05/27/21 18:38 Discharge Plan Discharge Patient Disposition: Home Clinical Impression: Pneumonia Qualifiers: Pneumonia type: due to unspecified organism Laterality: right Lung location: unspecified part of lung Qualified Code(s): J18.9 - Pneumonia, unspecified organism Condition: Stable Prescriptions: New levofloxacin 750 mg tablet 750 mg PO DAILY 5 Days 0RF No Action tamsulosin 0.4 mg capsule 0.4 mg PO BEDTIME Qty: 30 0RF bisacodyl 10 mg suppository 10 mg IA DAILY PRN (Reason: Constipation) Qty: 30 0RF Rx Instructions: give rectally if cant take po if no results from mom Tylenol 325 mg Tablet 650 mg PO Q6H PRN (Reason: Pain) 0RF donepezil 5 mg Tablet 5 mg PO DAILY@08 0RF albuterol sulfate 2.5 mg /3 mL (0.083 %) Solution For Nebulization 2.5 mg INHALATION Q4H PRN (Reason: Shortness Of Breath) 0RF [place] 5-325 mg Tablet 1 tab PO Q6H PRN (Reason: Pain) 0RF naloxone 0.4 mg/mL Solution See Rx Instructions .ROUTE .COMPLEX 0RF Rx Instructions: 0.4mg injection as needed in the deltoid or thigh may repeat every 3 to 5 minutes for 3 doses and call 911 if no response prednisone 5 mg Tablet 5 mg PO DAILY@08 0RF Aspir-81 81 mg Tablet,Delayed Release (Dr/Ec) 81 mg PO DAILY@08 0RF Protonix 20 mg Tablet,Delayed Release (Dr/Ec) 20 mg PO DAILY@05 0RF Xanax 0.5 mg Tablet 0.5 mg PO TID PRN (Reason: Anxiety) 0RF hydrocortisone 1 % Cream 1 applic topical BID 0RF Rx Instructions: apply to rash on back Fleet Enema 19-7 gram/118 mL Enema 118 ml IA DAILY PRN (Reason: Constipation) 0RF Rx Instructions: give if no results from mom and dulcolax if still no results notify pcp Dulcolax (bisacodyl) 5 mg Tablet,Delayed Release (Dr/Ec) 10 mg PO DAILY PRN (Reason: Constipation) 0RF Lexapro 20 mg Tablet 20 mg PO DAILY@08 0RF Lantus Solostar U-100 Insulin 100 unit/mL (3 mL) insulin pen 40 unit SUBCUT BEDTIME 0RF Biofreeze (menthol) 4 % Gel 1 applic TOPICAL BID PRN (Reason: Pain) 0RF Rx Instructions: apply to legs,arms and back Mucinex 600 mg Tablet Extended Release 12hr 600 mg PO BID@08,20 0RF cilostazol 100 mg tablet 100 mg PO BID@08,20 0RF Milk of Magnesia 400 mg/5 mL suspension 30 ml PO .EVERY 72 HOURS PRN (Reason: Constipation) 0RF Rx Instructions: give if no bm in 3 days Colace 100 mg capsule 100 mg PO BID@08,20 0RF insulin lispro [Humalog KwikPen Insulin] 100 unit/mL insulin pen See Rx Instructions .ROUTE .COMPLEX 0RF Rx Instructions: 10 unit subcutaneously tid plus sliding scale before meals and at bedtime 150-200=0 units 201-250=2 units 251-300=4 units 301-350=6 units 351-400=8 units if bs is greater than 400 give 8 units if less than 70 call md-call dr if high or low after 3 consecutive readings Discharge Orders: Discharge Order (Routine); Ordered 05/27/21 Ordered By: Cody Graves Discharge ED (Routine); Ordered 05/27/21 Ordered By: Cody Graves Referrals: Nick Florian MD [Primary Care Provider] - Discharge Diet: Advance as tolerated Discharge Activity: Resume usual activity Patient Instructions: Pneumonia (ED) Coding Level of Care Code ED 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 Ch[place] Fwd Exam Comprehensive Documented by User: Cody Graves MD 05/27/21 19:25 HPI - Nausea/Vomiting/Diarrhea General: Chief complaint: Headache Stated complaint: N/V, SHAKING Time Seen by Provider: 05/27/21 14:30 PFSH ED PFSH: Medical History Constipation COPD (chronic obstructive pulmonary disease) Diabetes mellitus, type II Fall -unclear etiology -telemetry monitoring -VSS; continue to monitor Perineal abscess Pneumonia due to COVID-19 virus Urinary retention Surgical History History of back surgery History of carpal tunnel release of both wrists History of neck surgery S/P excisional debridement Family History Mother , AT AGE 65 Cancer Father , IN HIS 90'S No problems noted. Denies family history of Anesthesia complication Bleeding disorder Social History Smoking and tobacco status: former smoker Alcohol intake: current Alcohol intake frequency: few times a month Housing: Jail Marital status: Number of children: 2 History of recent travel: No Course Vital Signs: Vital signs: Vital Signs Temperature 97.2 F L 05/27/21 14:21 Pulse Rate 97 05/27/21 18:51 Respiratory Rate 20 H 05/27/21 18:51 Blood Pressure 159/80 05/27/21 18:51 Pulse Oximetry 96 05/27/21 18:51 MDM - Nausea/Vomiting/Diarrhea Medical Decision Making [facility] with [facility] confusion he is wearing 2 L of oxygen here as well x-ray shows worsening pneumonia on the right side c ould be an aspiration pneumonia from his vomiting pneumonia also seen on the CT of his abdomen pelvis. Patient started on IV antibiotics spoke to hospitalist will admit. Lab Data : 05/27/21 15:30 05/27/21 15:[address] 05/27/21 15:11 IMPRESSION: 1. No acute intracranial hemorrhage or edema. 2. Moderate atrophy and chronic ischemic type changes. 3. Mild ventriculomegaly has progressed since 03/22/2020. Likely on the basis of atrophy. 4. LEFT mastoid effusion. Abdomen/Pelvis CT 05/27/21 15:46 IMPRESSION: 1. Right middle and lower lobe consolidation consistent with pneumonia. 2. Patchy cortical hypoenhancement in both kidneys suggests pyelonephritis. 3. Incidental findings above. Chest X-Ray 05/27/21 17:31 IMPRESSION: Right lung consolidation suggests pneumonia. Laboratory Results WBC 9.5 10^3/uL (4.0-10.0) 05/27/21 15:30 RBC 4.45 10^6/uL (4.1-5.3) 05/27/21 15:30 Hgb 14.2 g/dL (11.7-16.6) 05/27/21 15:30 Hct 43.0 % (42.0-52.0) 05/27/21 15:30 MCV 96.6 fl (80-94) H 05/27/21 15:30 MCH 31.9 pg (28.0-34.0) 05/27/21 15:30 MCHC 33.0 g/dL (30.0-36.0) 05/27/21 15:30 RDW 13.7 % (12.1-15.1) 05/27/21 15:30 Plt Count 199 10^3/cmm (130-400) 05/27/21 15:30 MPV 9.9 fL (7.4-10.4) 05/27/21 15:30 Neut % (Auto) 92.0 % 05/27/21 15:30 Lymph % (Auto) 4.6 % 05/27/21 15:30 [place] % (Auto) 2.3 % 05/27/21 15:30 Eos % (Auto) 0.1 % 05/27/21 15:30 Baso % (Auto) 0.5 % 05/27/21 15:30 Neut # (Auto) 8.73 10^3/uL (1.8-7.7) H 05/27/21 15:30 Lymph # (Auto) 0.4 10^3/uL (0.8-4.8) L 05/27/21 15:30 [place] # (Auto) 0.2 10^3/uL (0.2-0.9) 05/27/21 15:30 Eos # (Auto) 0.0 10^3/uL (0.0-0.8) 05/27/21 15:30 Baso # (Auto) 0.1 10^3/uL (0.0-0.1) 05/27/21 15:30 Nucleated RBC % (auto) 0 % 05/27/21 15:30 Nucleated RBCs # 0.0 /100WBC 05/27/21 15:30 Sodium 139 mmol/L (136-145) 05/27/21 15:30 Potassium 4.2 mmol/L (3.5-5.1) 05/27/21 15:30 Chloride 101 mmol/L (98-107) 05/27/21 15:30 Carbon Dioxide 26 mmol/L (22-29) 05/27/21 15:30 Anion Gap 16.2 (5-19) 05/27/21 15:30 BUN 20 mg/dL (8-23) 05/27/21 15:30 Creatinine 1.1 mg/dL (0.7-1.2) 05/27/21 15:30 GFR Calculation Not Reportable 05/27/21 15:30 Glucose 168 mg/dL (65-115) H 05/27/21 15:30 Calculated Osmolality 294 mOsm/kg (285-295) 05/27/21 15:30 Calcium 8.8 mg/dL (8.5-10.5) 05/27/21 15:30 Total Bilirubin 0.3 mg/dL (0.15-1.2) 05/27/21 15:30 AST 12 U/L (0-40) 05/27/21 15:30 ALT 8 U/L (0-41) 05/27/21 15:30 Alkaline Phosphatase 81 IU/L (40-130) 05/27/21 15:30 Total Protein 6.6 g/dL (6.6-8.7) 05/27/21 15:30 Albumin 4.3 g/dL (3.5-5.2) 05/27/21 15:30 Globulin 2.3 g/dL (1.3-4.6) 05/27/21 15:30 Urine Color Yellow (Yellow) 05/27/21 16:42 Urine Appearance Clear (CLEAR) 05/27/21 16:42 Urine pH 5 (5-7) 05/27/21 16:42 Ur Specific [place] 1.010 (1.005-1.030) 05/27/21 16:42 Urine Protein Neg (Negative) 05/27/21 16:42 Urine Glucose (UA) 4+ (Normal) H 05/27/21 16:42 Urine Ketones Negative (Negative) 05/27/21 16:42 Urine Blood Neg (Negative) 05/27/21 16:42 Urine Nitrate Negative (Negative) 05/27/21 16:42 Urine Bilirubin Neg (Negative) 05/27/21 16:42 Urine Urobilinogen Norm mg/dL (Negative) 05/27/21 16:42 Ur Leukocyte Esterase Negative (Negative) 05/27/21 16:42 SARS-CoV-2 Ag (Rapid) Negative (Negative) 05/27/21 18:38 Discharge Plan Discharge Patient Disposition: Home Clinical Impression: Pneumonia Qualifiers: Pneumonia type: due to unspecified organism Laterality: right Lung location: unspecified part of lung Qualified Code(s): J18.9 - Pneumonia, unspecified organism Condition: Stable Prescriptions: New levofloxacin 750 mg tablet 750 mg PO DAILY 5 Days 0RF No Action tamsulosin 0.4 mg capsule 0.4 mg PO BEDTIME Qty: 30 0RF bisacodyl 10 mg suppository 10 mg IA DAILY PRN (Reason: Constipation) Qty: 30 0RF Rx Instructions: give rectally if cant take po if no results from mom Tylenol 325 mg Tablet 650 mg PO Q6H PRN (Reason: Pain) 0RF donepezil 5 mg Tablet 5 mg PO DAILY@08 0RF albuterol sulfate 2.5 mg /3 mL (0.083 %) Solution For Nebulization 2.5 mg INHALATION Q4H PRN (Reason: Shortness Of Breath) 0RF [place] 5-325 mg Tablet 1 tab PO Q6H PRN (Reason: Pain) 0RF naloxone 0.4 mg/mL Solution See Rx Instructions .ROUTE .COMPLEX 0RF Rx Instructions: 0.4mg injection as needed in the deltoid or thigh may repeat every 3 to 5 minutes for 3 doses and call 911 if no response prednisone 5 mg Tablet 5 mg PO DAILY@08 0RF Aspir-81 81 mg Tablet,Delayed Release (Dr/Ec) 81 mg PO DAILY@08 0RF Protonix 20 mg Tablet,Delayed Release (Dr/Ec) 20 mg PO DAILY@05 0RF Xanax 0.5 mg Tablet 0.5 mg PO TID PRN (Reason: Anxiety) 0RF hydrocortisone 1 % Cream 1 applic topical BID 0RF Rx Instructions: apply to rash on back Fleet Enema 19-7 gram/118 mL Enema 118 ml IA DAILY PRN (Reason: Constipation) 0RF Rx Instructions: give if no results from mom and dulcolax if still no results notify pcp Dulcolax (bisacodyl) 5 mg Tablet,Delayed Release (Dr/Ec) 10 mg PO DAILY PRN (Reason: Constipation) 0RF Lexapro 20 mg Tablet 20 mg PO DAILY@08 0RF Lantus Solostar U-100 Insulin 100 unit/mL (3 mL) insulin pen 40 unit SUBCUT BEDTIME 0RF Biofreeze (menthol) 4 % Gel 1 applic TOPICAL BID PRN (Reason: Pain) 0RF Rx Instructions: apply to legs,arms and back Mucinex 600 mg Tablet Extended Release 12hr 600 mg PO BID@08,20 0RF cilostazol 100 mg tablet 100 mg PO BID@08,20 0RF Milk of Magnesia 400 mg/5 mL suspension 30 ml PO .EVERY 72 HOURS PRN (Reason: Constipation) 0RF Rx Instructions: give if no bm in 3 days Colace 100 mg capsule 100 mg PO BID@08,20 0RF insulin lispro [Humalog KwikPen Insulin] 100 unit/mL insulin pen See Rx Instructions .ROUTE .COMPLEX 0RF Rx Instructions: 10 unit subcutaneously tid plus sliding scale before meals and at bedtime 150-200=0 units 201-250=2 units 251-300=4 units 301-350=6 units 351-400=8 units if bs is greater than 400 give 8 units if less than 70 call md-call dr if high or low after 3 consecutive readings Discharge Orders: Discharge Order (Routine); Ordered 05/27/21 Ordered By: Cody Graves Discharge ED (Routine); Ordered 05/27/21 Ordered By: Cody Graves Referrals: Nick Florian MD [Primary Care Provider] - Discharge Diet: Advance as tolerated Discharge Activity: Resume usual activity Patient Instructions: Pneumonia (ED) Coding Level of Care Code ED 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 [place] Fwd Exam Comprehensive
--- NOTE | 2021-05-27 15:11 | CT_ITS ---
WS: [id number] CT HEAD NONCONTRAST HISTORY: Vomiting TECHNIQUE: Contiguous axial imaging performed through the brain in 2.5 mm imaging. Bone and soft tiss ue windows. Sagittal and coronal reformats reviewed. All CT scans at [facility] use at least one of these dose optimization techniques: automated exposure control; mA and/or kV adjustment per pa tient size (includes targeted exams where dose is matched to clinical indication); or iterative recon struction. DLP: 862.03 mGy.cm COMPARISON: 03/22/2020 No acute intracranial hemorrhage, midline shift or mass effect. Moderate atrophy and chronic ischemic type changes. No acute sulcal effacement. Heavy calcification a long the interhemispheric falx and over the tentorium. Ventricles: Ventricles are prominent on the basis of atrophy. The ventriculomegaly has progressed si nce the prior study. Paranasal sinuses: As visualized are clear. Mastoid air cells: Increased soft tissue and fluid involving a large portion of the LEFT mastoid air cells. RIGHT mastoid air cells are clear. Calvarium and scalp: Skull is intact with no soft tissue edema or swelling. CT/CT head wo con* [id number] IMPRESSION: 1. No acute intracranial hemorrhage or edema. 2. Moderate atrophy and chronic ischemic type changes. 3. Mild ventriculomegaly has progressed since 03/22/2020. Likely on the basis o f atrophy. 4. LEFT mastoid effusion.
[2021-05-27 15:39] LABS: Basophils # 0.1 10^3/uL (0.0-0.1); Basophils % 0.5 %; Eosinophils % 0.1 %; Hemoglobin 14.2 g/dL (11.7-16.6); Lymphocytes # 0.4 10^3/uL (0.8-4.8); Lymphocytes % 4.6 %; Mean Corpuscular Hemoglobin 31.9 pg (28.0-34.0); Mean Corpuscular Volume 96.6 fl (80-94); Mean Platelet Volume 9.9 fL (7.4-10.4); Monocytes # 0.2 10^3/uL (0.2-0.9); Monocytes % 2.3 %; Neutrophils # 8.73 10^3/uL (1.8-7.7); Nucleated Red Blood Cells % 0 %; Platelet Count 199 10^3/cmm (130-400); Red Blood Count 4.45 10^6/uL (4.1-5.3); Red Cell Distribution Width 13.7 % (12.1-15.1); White Blood Count 9.5 10^3/uL (4.0-10.0)
--- NOTE | 2021-05-27 15:46 | CTR_ITS ---
PROCEDURE INFORMATION: Exam: CT Abdomen And Pelvis With Contrast Exam date and time: 05/27/2021 3:46 PM Age: 81 years old Clinical indication: Abdominal pain; Generalized; Additional info: Abd pain. TECHNIQUE: Imaging protocol: Computed tomography of the abdomen and pelvis with contrast. Radiation optimization: All CT scans at this facility use at least one of these dose optimization techniques: automated exposure control; mA and/or kV adjustment per patient size (includes targeted exams where dose is matched to clinical indication); or iterative reconstruction. Contrast material: OMNI 300; Contrast volume: 95 ml; Contrast route: INTRAVENOUS (IV); COMPARISON: CT chest abd pel w con* 03/22/2020 4:57 AM RADIATION DOSE METRICS: Total DLP (mGy-cm): 1167.03 FINDINGS: Lungs: There is consolidation throughout the visible portion of the right lower lobe and right middle lobe. Diaphragm: There is a small sliding-type hiatal hernia. Liver: The liver is normal. Gallbladder and bile ducts: The gallbladder is normal. There is no biliary dilation. Pancreas: There is mild atrophy of the pancreas. Spleen: The spleen is unremarkable. Adrenal glands: The adrenal glands are unremarkable. Kidneys and ureters: There is patchy cortical hypoenhancement in both kidneys. There is no hydronephrosis or stones. Stomach and bowel: The stomach is decompressed, preventing meaningful evaluation of wall thickness. The small bowel is nondilated. There is mild distal descending and sigmoid colonic diverticulosis without evidence of diverticulitis. Appendix: The appendix is normal. Intraperitoneal space: There is no free air or significant intraperitoneal free fluid. Vasculature: The portal, splenic and superior mesenteric veins are patent. Lymph nodes: There is no lymphadenopathy in the retroperitoneum, mesentery, pelvis or inguinal regions. Urinary bladder: The urinary bladder is unremarkable. Reproductive: The prostate and seminal vesicles are unremarkable. Bones/joints: There is moderate degenerative disease in the lumbar spine. Intact posterolateral fusion at L5-S1. The pelvis and proximal femora are intact. Soft tissues: The abdominal wall is intact. CT/CT abdomen pelvis w con* [id number] IMPRESSION: 1. Right middle and lower lobe consolidation consistent with pneumonia. 2. Patchy cortical hypoenhancement in both kidneys suggests pyelonephritis. 3. Incidental findings above.
[2021-05-27 16:13] LABS: Alanine Aminotransferase 8 U/L (0-41); Albumin Level 4.3 g/dL (3.5-5.2); Alkaline Phosphatase 81 IU/L (40-130); Anion Gap 16.2 (5-19); Aspartate Amino Transferase 12 U/L (0-40); Blood Urea Nitrogen 20 mg/dL (8-23); Calcium 8.8 mg/dL (8.5-10.5); Carbon Dioxide 26 mmol/L (22-29); Chloride 101 mmol/L (98-107); Globulin 2.3 g/dL (1.3-4.6); Glucose 168 mg/dL (65-115); Osmolality Calculated 294 mOsm/kg (285-295); Potassium 4.2 mmol/L (3.5-5.1); Sodium 139 mmol/L (136-145); Total Bilirubin 0.3 mg/dL (0.15-1.2); Total Protein 6.6 g/dL (6.6-8.7)
[2021-05-27 16:45] VITALS: BP 159/80; PULSE 97; RESP 20; O2SAT 95
[2021-05-27] MEDS: sodium chloride 0.9% 1,000 ML 999 ML IV (16:46)
--- NOTE | 2021-05-27 16:49 | PC.PHAR ---
pt [place] [facility] [place] nurse danial from [facility] [place] states the pt had his am meds today
[2021-05-27 16:52] LABS: Add Urine Microscopic? NO; Charge for UA Resulting for Rev
[2021-05-27] MEDS: iohexol 300 mg/mL 100 mL Btl IV (17:08)
[2021-05-27 17:20] LABS: Bilirubin Urine Neg (Negative); Blood Urine Neg (Negative); Glucose Urine UA 4+ (Normal); Ketones Urine Negative (Negative); Leukocyte Esterase Urine Negative (Negative); Nitrate Urine Negative (Negative); Protein Urine Neg (Negative); Urine Appearance Clear (CLEAR); Urine Color Yellow (Yellow); Urobilinogen Urine Norm (Negative); pH Urine 5 (5-7)
--- NOTE | 2021-05-27 17:31 | XRR_ITS ---
PROCEDURE INFORMATION: Exam: XR Chest Exam date and time: 05/27/2021 5:31 PM Age: 81 years old Clinical indication: Shortness of breath; Additional info: SOB TECHNIQUE: Imaging protocol: XR of the chest. Views: 1 view. COMPARISON: CT chest abd pel w con* 03/22/2020 4:57 AM FINDINGS: Lungs: There is consolidation in the right mid and lower lung. Left lung is clear. Pleural spaces: There is no pleural effusion or pneumothorax. Heart/Mediastinum: Cardiomediastinal contours are unremarkable. Bones/joints: Healed right humeral fracture. XR/XR chest 1V portable [id number] IMPRESSION: Right lung consolidation suggests pneumonia.
[2021-05-27 18:51] VITALS: BP 159/80; PULSE 97; RESP 20; O2SAT 96
[2021-05-27 19:13] LABS: SARS Covid-2 Antigen Negative (Negative)
--- NOTE | 2021-05-27 19:24 | P.CONIM_ITS ---
Providers/Reason For Consult Consulting Physician/Specialty*: Hospitalist Reason for Consult*: New pneumonia requiring O2 2 L Requesting Physician: ED Attending Physician: Navarro Garrison DO Primary Care Provider: Nick Florian MD History of Present Illness History of Present Illness Castro Coley is a 81 year old male dementia and chronic aspiration presents with projectile vomiting from half-way. I spoke with Danielle at the half-way who informed me that the patient's roommate or neighbor witnessed the patient drinking from the urinal. The patient is confused and unable to provide a history. I spoke with the patient's son who is the DURABLE POWER OF LOGISTICS PLANNER. He will let us know of the patient's dementia. Patient was diagnosed about a year ago and subsequently placed in the half-way at the same time. The son Jon reports that this would be his third bout of pneumonia. It should be noted that he has aspirated while on antibiotics. Patient is on thickened liquids back at the half-way but unknown if he is on full dysphagia diet. The patient's functional status at the half-way is that he needs assistance for activities of daily living including bathing dressing toileting transferring and eating. Review of Systems Narrative: Unable to obtain due to dementia Medications/Allergies Home Medications Medication Instructions Recorded Confirmed Last Taken Type bisacodyl 10 mg rectal suppository 10 mg [place] DAILY PRN #30 each 11/01/19 05/27/21 Unknown Rx tamsulosin 0.4 mg capsule 0.4 mg PO BEDTIME #30 cap 11/01/19 05/27/21 05/26/21 Rx acetaminophen 325 mg tablet 650 mg PO Q6H PRN 05/27/21 05/27/21 Unknown History (Tylenol) albuterol sulfate 2.5 mg INHALATION Q4H PRN 05/27/21 05/27/21 Unknown History alprazolam 0.5 mg tablet (Xanax) 0.5 mg PO TID PRN 05/27/21 05/27/21 Unknown History aspirin 81 mg tablet,delayed 81 mg PO DAILY@05/27/21 05/27/21 05/27/21 History release bisacodyl 5 mg tablet,delayed 10 mg PO DAILY PRN 05/27/21 05/27/21 Unknown History release (Dulcolax (bisacodyl)) cilostazol 100 mg tablet 100 mg PO BID@05/27/21 05/27/21 05/27/21 08:00 History docusate sodium 100 mg capsule 100 mg PO BID@05/27/21 05/27/21 05/27/21 History (Colace) donepezil 5 mg tablet 5 mg PO DAILY@05/27/21 05/27/21 05/27/21 History escitalopram oxalate 20 mg tablet 20 mg PO DAILY@05/27/21 05/27/21 05/27/21 History (Lexapro) guaifenesin 600 mg tablet, 600 mg PO BID@05/27/21 05/27/21 05/27/21 History extended release 12 hr (Mucinex) hydrocodone 5 mg-acetaminophen 325 1 tab PO Q6H PRN 05/27/21 05/27/21 Unknown History mg tablet hydrocortisone 1 % topical cream 1 applic TOPICAL BID 05/27/21 05/27/21 Unknown History insulin glargine 100 unit/mL (3 40 unit SUBCUT BEDTIME 05/27/21 05/27/21 05/26/21 History mL) subcutaneous pen (Lantus Solostar U-100 Insulin) insulin lispro 100 unit/mL See Rx Instructions .ROUTE .COMPLEX 05/27/21 05/27/21 05/27/21 12:00 History subcutaneous pen (Humalog KwikPen 14 units (U-100) Insulin) magnesium hydroxide 400 mg/5 mL 30 ml PO .EVERY 72 HOURS PRN 05/27/21 05/27/21 Unknown History oral suspension (Milk of Magnesia) menthol 4 % topical gel (Biofreeze 1 applic TOPICAL BID PRN 05/27/21 05/27/21 Unknown History (menthol)) naloxone 0.4 mg/mL injection See Rx Instructions .ROUTE .COMPLEX 05/27/21 05/27/21 Unknown History solution pantoprazole 20 mg tablet,delayed 20 mg PO DAILY@05/27/21 05/27/21 05/27/21 History release (Protonix) prednisone 5 mg tablet 5 mg PO DAILY@05/27/21 05/27/21 05/27/21 History sodium phosphates 19 gram-7 118 ml [place] DAILY PRN 05/27/21 05/27/21 Unknown History gram/118 mL enema (Fleet Enema) Allergies Allergy/AdvReac Type Severity Reaction Status Date / Time ibuprofen Allergy Mild Nausea Verified 05/30/20 09:51 tetanus toxoid, adsorbed Allergy Unknown Verified 05/27/21 16:48 PFSH Acute PFSH: Medical History Constipation COPD (chronic obstructive pulmonary disease) Diabetes mellitus, type II Fall -unclear etiology -telemetry monitoring -VSS; continue to monitor Perineal abscess Pneumonia due to COVID-19 virus Urinary retention Surgical History History of back surgery History of carpal tunnel release of both wrists History of neck surgery S/P excisional debridement Family History Mother , AT AGE 65 Cancer Father , IN HIS 90'S No problems noted. Denies family history of Anesthesia complication Bleeding disorder Social History Smoking and tobacco status: former smoker Alcohol intake: current Alcohol intake frequency: few times a month Housing: Detention Marital status: Number of children: 2 History of recent travel: No Vitals/I&O/Wt Last Vital Signs Temp 97.2 F L 05/27/21 14:21 Pulse 97 05/27/21 18:51 Resp 20 H 05/27/21 18:51 BP 159/80 05/27/21 18:51 Pulse Ox 96 05/27/21 18:51 Physical Exam Narrative: Patient is seen the ED. He has a large amount of purulent sputum on his right upper chest of his gown. He was resting peacefully in no acute distress. Neurologic: Patient has a history of dementia. He is alert to name only ENT nasopharyngeal mucous membranes are moist and pink neck is supple no JVD carotid bruits or lymphadenopathy Head: Normocephalic atraumatic Chest: Chest rises symmetrically with inspiration Heart: Normal sinus rhythm normal S1-S2 without murmurs clicks or gallops or rubs Lungs: Diminished breath sounds throughout scattered rhonchi and crackles on the right side Abdomen soft nontender nondistended positive bowel sounds no hepatosplenomegaly Extremities: No clubbing cyanosis or edema Skin: No lesions or rashes noted. Musculoskeletal: No obvious deformity, NO pain on palpation of lower extremities Eyes: No scleral icterus extraocular muscles intact, PERRLA Const: EXAM LIMITATIONS: altered mental status Data : 05/27/21 15:30 05/27/21 15:30 A&P Assessment and plan (1) Aspiration pneumonia: Status: Acute (2) Chronic pulmonary aspiration: Status: Acute (3) Dementia: Status: Acute (4) Diabetes mellitus, type II: Status: Acute (5) DNR (do not resuscitate): Status: Acute (6) Palliative care encounter: Status: Acute Plan Patient with end-stage dementia; he is severely disabled. He requires assistance for all ADLs. And now he is presenting with is his third bout of aspiration pneumonia in 3 months. He is currently being treated for aspiration pneumonia on amoxicillin and zithromax and had another aspirate event tonight. It is possible that he even drank urine today. Given the extent of patient's illness I think it is reasonable that patient would be a good candidate for the hospice benefit. I did discuss this with the son who is in agreement. I also called the half-way where he is from and spoke with Danielle jeronimo night nurse who knows the patient. Unfortunately hospitalization will not positively affect this patient's condition nor prognosis; hospitalization could limit prognosis with further complications. It is my recommendation that the patient return back to half-way and consult shai pa with hospice. Discussed with ED physician who will prescribe Levaquin on discharge. senior living can utilize oxygen as needed. Patient should otherwise be given medications for comfort. And adjustments made to his plan of care. No transfer to hospital comfort given at home. Coding Level of Care Code Acute Cash Posting Clerk for [facility] Fwd Diagnoses Aspiration pneumonia J69.0 Chronic pulmonary aspiration T17.908A Dementia F03.90 Diabetes mellitus, type II E11.9 DNR (do not resuscitate) Z66 Palliative care encounter Z51.5
[2021-05-27] MEDS: azithromycin 500 MG in sodium chloride 0.9% 250 ML 250 MG IV (19:26)
== END 2021-05-27 23:09 | disposition home or self-care (01) ==
LOC: ER 18:19 → ER IP 19:18 → ER 20:38
PROVIDERS: Family Medicine; Emergency Provider Emergency Medicine; PCP Family Medicine; Visit Provider Student in an Organized Health Care Education/Training Program
DX: J18.9 Pneumonia, unspecified organism (principal); Z79.82 Long term (current) use of aspirin; Z79.4 Long term (current) use of insulin; J44.9 Chronic obstructive pulmonary disease, unspecified; E11.9 Type 2 diabetes mellitus without complications; Z87.891 Personal history of nicotine dependence; Z20.822 Contact with and (suspected) exposure to COVID-19
CPT/HCPCS: 51701; 70450; 71045; 74177; 80053; 81003; 85025; 87040; 87426; 96365; 99284; J0456; J7030; J7050; Q9967

== ENCOUNTER 2021-07-23 09:02 | Emergency (ER) | payer MEDICARE, MEDICAID, SELFPAY ==
[2021-07-23 09:07] VITALS: BP 189/89; PULSE 60; RESP 14; TEMP 36.3; O2SAT 97; BMI 27.3
--- NOTE | 2021-07-23 09:10 | ED_ITS ---
HPI - Fall General: Chief Complaint: Altered Mental Status Stated Complaint: AMS, FALL LAST NIGHT Time Seen by Provider: 07/23/21 09:03 Source: patient Mode of arrival: EMS Limitations: other (Dementia) History of Present Illness: 81-year-old male presents to the emergency room with complaint of a fall at the care home. Patient has a history of dementia he is on hospice at the time. He denies any specific complaints he has an abrasion above his eye he evidently fell around midnight last night they watched him overnight he thought he was somewhat altered this morning on arrival here he answers questions appropriately denies any pain. No chest pain no abdominal pain, no pain in the extremities MD complaint: fall Onset (ago): hour(s) Fall witnessed: no Place fall occurred: care home/SNF Loss of consciousness: None Prolonged down time: no Context: history of frequent falls Associated symptoms-after fall: Denies abdominal pain, chest pain, confusion, difficulty walking, headache(s), hematuria, lightheadedness, neck pain, numbness, short of breath, vertigo or weakness Review of Systems Const: Denies: fever(s), chills or body aches ENMT: Denies: throat pain, nasal discharge or nasal congestion Card: Denies: chest pain or lightheadedness Resp: Denies: dyspnea, productive cough or non-productive cough GI: Denies: abdominal pain : Denies: hematuria Musc: Denies: neck pain Neuro: Denies: headache(s), difficulty walking, vertigo or confusion PFSH ED PFSH: Medical History Constipation COPD (chronic obstructive pulmonary disease) Diabetes mellitus, type II Fall -unclear etiology -telemetry monitoring -VSS; continue to monitor Perineal abscess Pneumonia due to COVID-19 virus Urinary retention Surgical History History of back surgery History of carpal tunnel release of both wrists History of neck surgery S/P excisional debridement Family History Mother , AT AGE 65 Cancer Father , IN HIS 90'S No problems noted. Denies family history of Anesthesia complication Bleeding disorder Social History Smoking and tobacco status: former smoker Alcohol intake: current Alcohol intake frequency: few times a month Housing: Intermediate Marital status: Number of children: 2 History of recent travel: No Physical Exam Const: COMMON NORMALS: no acute distress GENERAL APPEARANCE: cooperative and comfortable ORIENTATION/CONSCIOUSNESS: Yes awake HENMT: COMMON NORMALS: normocephalic HEAD & SCALP: normocephalic Neck/C-Spine: COMMON NORMALS: full ROM, no lymphadenopathy, supple and no JVD Resp: COMMON NORMALS: normal respiratory effort, No retractions, No use of accessory muscles and clear to auscultation bilaterally AUSCULTATION: clear to auscultation bilaterally Cardio: COMMON NORMALS: no JVD, regular rate, regular rhythm and No murmurs present (Cardio) RATE: regular rate RHYTHM: regular rhythm GI: COMMON NORMALS: Soft to palpation and No hepatosplenomegaly present AUSCULTATION: Yes normoactive bowel sounds PALPATION: Yes Soft to palpation, No Tenderness to palpation present (GI), No Guarding due to palpation present (GI) and Yes No hepatosplenomegaly present Extremity: COMMON NORMALS: normal to inspection, capillary refill normal, no clubbing, cyanosis or edema, no calf tenderness and no pedal edema Skin: OTHER: Abrasion above the left side on the nose crosses the midline no vesicles, dry no sign of infection Course Vital Signs: Vital signs: Vital Signs Temperature 97.4 F L 07/23/21 09:07 Pulse Rate 60 07/23/21 10:00 Respiratory Rate 17 07/23/21 10:00 Blood Pressure 189/89 07/23/21 10:00 Pulse Oximetry 97 07/23/21 10:00 MDM - Fall Medical Decision Making Moderate Malika Kershaw. CT is negative. We will update tetanus return to the care home continue hospice care. His urine was by catheterization think he may have very well have a urinary tract infection we will go ahead and treat with Macrodantin as well as treatment Malika Robbie I do not think it was cross-contamination. Medical Records I reviewed the patient's medical records. Lab Data I reviewed the patient's lab results. : 07/23/21 09:18 07/23/21 09:18 Laboratory Results WBC 6.7 10^3/uL (4.0-10.0) 07/23/21 09:18 RBC 4.15 10^6/uL (4.1-5.3) 07/23/21 09:18 Hgb 13.0 g/dL (11.7-16.6) 07/23/21 09:18 Hct 39.0 % (42.0-52.0) L 07/23/21 09:18 MCV 94.0 fl (80-94) 07/23/21 09:18 MCH 31.3 pg (28.0-34.0) 07/23/21 09:18 MCHC 33.3 g/dL (30.0-36.0) 07/23/21 09:18 RDW 13.8 % (12.1-15.1) 07/23/21 09:18 Plt Count 187 10^3/cmm (130-400) 07/23/21 09:18 MPV 10.8 fL (7.4-10.4) H 07/23/21 09:18 Neut % (Auto) 65.2 % 07/23/21 09:18 Lymph % (Auto) 24.7 % 07/23/21 09:18 [place] % (Auto) 6.1 % 07/23/21 09:18 Eos % (Auto) 2.7 % 07/23/21 09:18 Baso % (Auto) 0.9 % 07/23/21 09:18 Neut # (Auto) 4.38 10^3/uL (1.8-7.7) 07/23/21 09:18 Lymph # (Auto) 1.7 10^3/uL (0.8-4.8) 07/23/21 09:18 [place] # (Auto) 0.4 10^3/uL (0.2-0.9) 07/23/21 09:18 Eos # (Auto) 0.2 10^3/uL (0.0-0.8) 07/23/21 09:18 Baso # (Auto) 0.1 10^3/uL (0.0-0.1) 07/23/21 09:18 Nucleated RBC % (auto) 0 % 07/23/21 09:18 Nucleated RBCs # 0.0 /100WBC 07/23/21 09:18 Sodium 140 mmol/L (136-145) 07/23/21 09:18 Potassium 4.1 mmol/L (3.5-5.1) 07/23/21 09:18 Chloride 104 mmol/L (98-107) 07/23/21 09:18 Carbon Dioxide 25 mmol/L (22-29) 07/23/21 09:18 Anion Gap 15.1 (5-19) 07/23/21 09:18 BUN 18 mg/dL (8-23) 07/23/21 09:18 Creatinine 1.0 mg/dL (0.7-1.2) 07/23/21 09:18 GFR Calculation Not Reportable 07/23/21 09:18 Glucose 169 mg/dL (65-115) H 07/23/21 09:18 Calculated Osmolality 296 mOsm/kg (285-295) H 07/23/21 09:18 Calcium 10.0 mg/dL (8.5-10.5) 07/23/21 09:18 Total Bilirubin 0.4 mg/dL (0.15-1.2) 07/23/21 09:18 AST 14 U/L (0-40) 07/23/21 09:18 ALT 10 U/L (0-41) 07/23/21 09:18 Alkaline Phosphatase 92 IU/L (40-130) 07/23/21 09:18 Total Protein 7.4 g/dL (6.6-8.7) 07/23/21 09:18 Albumin 3.9 g/dL (3.5-5.2) 07/23/21 09:18 Globulin 3.5 g/dL (1.3-4.6) 07/23/21 09:18 Urine Color Yellow (Yellow) 07/23/21 09:59 Urine Appearance Hazy (CLEAR) A 07/23/21 09:59 Urine pH 7 (5-7) 07/23/21 09:59 Ur Specific [place] 1.010 (1.005-1.030) 07/23/21 09:59 Urine Protein Neg (Negative) 07/23/21 09:59 Urine Glucose (UA) Norm (Normal) 07/23/21 09:59 Urine Ketones Negative (Negative) 07/23/21 09:59 Urine Blood 2+ (Negative) H 07/23/21 09:59 Urine Nitrate Negative (Negative) 07/23/21 09:59 Urine Bilirubin Neg (Negative) 07/23/21 09:59 Urine Urobilinogen Neg mg/dL (Negative) 07/23/21 09:59 Ur Leukocyte Esterase 2+ (Negative) H 07/23/21 09:59 Urine RBC 5-10 /hpf (0-2) H 07/23/21 09:59 Urine WBC Too numerous to cnt /hpf (0-5) H 07/23/21 09:59 Ur Squamous Epith Cells None /hpf (0-5) 07/23/21 09:59 Amorphous Sediment Not Reportable 07/23/21 09:59 Urine Bacteria None /hpf (NONE) 07/23/21 09:59 Discharge Plan Discharge Patient Disposition: Home Clinical Impression: Fall, Balanitis, Cystitis Condition: Stable Prescriptions: New bacitracin zinc-polymyxin B 500-10,000 unit/gram ointment 1 applic topical BID Qty: 28.4 0RF Rx Instructions: to glans of penis nitrofurantoin macrocrystal [Macrodantin] 100 mg capsule 100 mg PO BID 7 Days Qty: 14 0RF Rx Instructions: must administer with a meal/food No Action tamsulosin 0.4 mg capsule 0.4 mg PO BEDTIME Qty: 30 0RF bisacodyl 10 mg suppository 10 mg [place] DAILY PRN (Reason: Constipation) Qty: 30 0RF Rx Instructions: give rectally if cant take po if no results from mom Tylenol 325 mg Tablet 650 mg PO Q6H PRN (Reason: Pain) 0RF donepezil 5 mg Tablet 5 mg PO DAILY@08 0RF albuterol sulfate 2.5 mg /3 mL (0.083 %) Solution For Nebulization 2.5 mg INHALATION Q4H PRN (Reason: Shortness Of Breath) 0RF [place] 5-325 mg Tablet 1 tab PO Q6H PRN (Reason: Pain) 0RF naloxone 0.4 mg/mL Solution See Rx Instructions .ROUTE .COMPLEX 0RF Rx Instructions: 0.4mg injection as needed in the deltoid or thigh may repeat every 3 to 5 minutes for 3 doses and call 911 if no response prednisone 5 mg Tablet 5 mg PO DAILY@08 0RF Aspir-81 81 mg Tablet,Delayed Release (Dr/Ec) 81 mg PO DAILY@08 0RF Protonix 20 mg Tablet,Delayed Release (Dr/Ec) 20 mg PO DAILY@05 0RF Xanax 0.5 mg Tablet 0.5 mg PO TID PRN (Reason: Anxiety) 0RF hydrocortisone 1 % Cream 1 applic topical BID 0RF Rx Instructions: apply to rash on back Fleet Enema 19-7 gram/118 mL Enema 118 ml [place] DAILY PRN (Reason: Constipation) 0RF Rx Instructions: give if no results from mom and dulcolax if still no results notify pcp Dulcolax (bisacodyl) 5 mg Tablet,Delayed Release (Dr/Ec) 10 mg PO DAILY PRN (Reason: Constipation) 0RF Lexapro 20 mg Tablet 20 mg PO DAILY@08 0RF Lantus Solostar U-100 Insulin 100 unit/mL (3 mL) insulin pen 40 unit SUBCUT BEDTIME 0RF Biofreeze (menthol) 4 % Gel 1 applic TOPICAL BID PRN (Reason: Pain) 0RF Rx Instructions: apply to legs,arms and back Mucinex 600 mg Tablet Extended Release 12hr 600 mg PO BID@08,20 0RF cilostazol 100 mg tablet 100 mg PO BID@08,20 0RF Milk of Magnesia 400 mg/5 mL suspension 30 ml PO .EVERY 72 HOURS PRN (Reason: Constipation) 0RF Rx Instructions: give if no bm in 3 days Colace 100 mg capsule 100 mg PO BID@08,20 0RF insulin lispro [Humalog KwikPen Insulin] 100 unit/mL insulin pen See Rx Instructions .ROUTE .COMPLEX 0RF Rx Instructions: 10 unit subcutaneously tid plus sliding scale before meals and at bedtime 150-200=0 units 201-250=2 units 251-300=4 units 301-350=6 units 351-400=8 units if bs is greater than 400 give 8 units if less than 70 call md-call dr if high or low after 3 consecutive readings Discharge Orders: Discharge ED (Routine); Ordered 07/23/21 Ordered By: Rohith Walker Referrals: Nick Florian MD [Primary Care Provider] - Patient Instructions: Opioid Safety Coding Level of Care Code ED Mail Technician for Ch[employer] Fwd Exam Detailed
--- NOTE | 2021-07-23 09:14 | CT_ITS ---
WS: [id number] CT HEAD TECHNIQUE: Noncontrast CT of the head obtained from the skullbase to the vertex. CLINICAL INFORMATION: fall, LOC COMPARISON: None. DLP: 813.[address] scans at [facility] use at least one of these dose optimization techniques: automated e xposure control; mA and/or kV adjustment per patient size (includes targeted exams where dose is matc hed to clinical indication); or iterative reconstruction. FINDINGS: No evidence of intracranial hemorrhage or mass effect. Ventricular system and basal cisterns are [place] nt. Moderate small vessel changes with moderate parenchymal volume loss. 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 Intracranial vascular calcification. No extra-axial fluid collections. No ev idence of mass or mass effect. Mild mucosal thickening LEFT mastoid tip. RIGHT mastoid air cells well aerated. Mild mucosal thickeni ng ethmoid air cells. IMPRESSION: 1. No evidence of intracranial hemorrhage or mass effect. 2. Moderate small vessel changes with moderate parenchymal volume loss. 3. Mild mucosal thickening LEFT mastoid air cells. 4. No acute intracranial findings.
[2021-07-23 09:29] VITALS: BP 189/89; PULSE 62; RESP 15; O2SAT 96
[2021-07-23 09:51] LABS: Alanine Aminotransferase 10 U/L (0-41); Albumin Level 3.9 g/dL (3.5-5.2); Alkaline Phosphatase 92 IU/L (40-130); Anion Gap 15.1 (5-19); Aspartate Amino Transferase 14 U/L (0-40); Blood Urea Nitrogen 18 mg/dL (8-23); Carbon Dioxide 25 mmol/L (22-29); Chloride 104 mmol/L (98-107); Creatinine Clr Calc Pharmacy 60.5015; Globulin 3.5 g/dL (1.3-4.6); Glucose 169 mg/dL (65-115); Osmolality Calculated 296 mOsm/kg (285-295); Potassium 4.1 mmol/L (3.5-5.1); Sodium 140 mmol/L (136-145); Total Bilirubin 0.4 mg/dL (0.15-1.2); Total Protein 7.4 g/dL (6.6-8.7)
[2021-07-23 09:52] LABS: Basophils # 0.1 10^3/uL (0.0-0.1); Basophils % 0.9 %; Eosinophils # 0.2 10^3/uL (0.0-0.8); Eosinophils % 2.7 %; Lymphocytes # 1.7 10^3/uL (0.8-4.8); Lymphocytes % 24.7 %; Mean Corpuscular HGB Conc 33.3 g/dL (30.0-36.0); Mean Corpuscular Hemoglobin 31.3 pg (28.0-34.0); Mean Platelet Volume 10.8 fL (7.4-10.4); Monocytes # 0.4 10^3/uL (0.2-0.9); Monocytes % 6.1 %; Neutrophils # 4.38 10^3/uL (1.8-7.7); Neutrophils % 65.2 %; Nucleated Red Blood Cells % 0 %; Platelet Count 187 10^3/cmm (130-400); Red Blood Count 4.15 10^6/uL (4.1-5.3); Red Cell Distribution Width 13.8 % (12.1-15.1); White Blood Count 6.7 10^3/uL (4.0-10.0)
[2021-07-23 10:00] VITALS: BP 189/89; PULSE 60; RESP 17; O2SAT 97
[2021-07-23 10:58] LABS: Add Urine Culture? Yes; Add Urine Microscopic? YES; Bilirubin Urine Neg (Negative); Blood Urine 2+ (Negative); Glucose Urine UA Norm (Normal); Ketones Urine Negative (Negative); Leukocyte Esterase Urine 2+ (Negative); Nitrate Urine Negative (Negative); Protein Urine Neg (Negative); Urine Appearance Hazy (CLEAR); Urine Color Yellow (Yellow); Urobilinogen Urine Neg (Negative); WBC Urine TOO NUMEROUS TO CNT /hpf (0-5); pH Urine 7 (5-7)
[2021-07-23 13:05] VITALS: BP 185/72; PULSE 64; RESP 20; O2SAT 98
[2021-07-23 13:26] VITALS: BP 185/72; PULSE 64; RESP 20; O2SAT 98
== END 2021-07-23 13:28 | disposition home or self-care (01) ==
PROVIDERS: Emergency Provider Family Medicine; PCP Family Medicine
DX: N48.1 Balanitis (principal); N30.90 Cystitis, unspecified without hematuria
CPT/HCPCS: 70450; 80053; 81001; 85025; 87077; 87086; 87186; 99283

== ENCOUNTER 2022-06-20 08:20 | Inpatient (IN) | payer MEDICARE, MEDICAID, SELFPAY ==
[2022-06-20] VITALS (16 sets, daily range): BP systolic 114–194; BP diastolic 71–120; PULSE 82–110; RESP 14–22; TEMP 36.7–36.9; O2SAT 90–98; BMI 26.6
--- NOTE | 2022-06-20 08:21 | W.ED.FALL ---
HPI - Fall General: Chief Complaint: Fall Stated Complaint: FALL/ HIP PAIN Time Seen by Provider: 06/20/22 08:21 Limitations: altered mental status History of Present Illness: Mr. Coley is an 82-year-old gentleman with, per chart review, dementia, chronic aspiration, diabetes presenting to the ER for fall with apparent pain. Circumstances are very unclear as the patient does not provide any meaningful history. Apparently fall was a few days ago. It is unclear if he has had pain since that time but has not had subsequently developed pain. Primarily seems to be favoring left lower extremity. History is otherwise limited by mental status. Review of Systems General: Reports: ROS unobtainable due to mental status PFSH ED PFSH: Medical History Constipation COPD (chronic obstructive pulmonary disease) Diabetes mellitus, type II Fall -unclear etiology -telemetry monitoring -VSS; continue to monitor Perineal abscess Pneumonia due to COVID-19 virus Urinary retention Surgical History History of back surgery History of carpal tunnel release of both wrists History of neck surgery S/P excisional debridement Family History Mother , AT AGE 65 Cancer Father , IN HIS 90'S No problems noted. Denies family history of Anesthesia complication Bleeding disorder Social History Smoking and tobacco status: former smoker Alcohol intake: current Alcohol intake frequency: few times a month Housing: [facility] Marital status: Number of children: 2 Physical Exam Const: COMMON NORMALS: alert GENERAL APPEARANCE: cooperative and well developed HENMT: COMMON NORMALS: normocephalic and atraumatic HEAD & SCALP: normocephalic and atraumatic THROAT: posterior oropharynx normal OTHER: No ellis signs or raccoon eyes. No hemotympanum. No otorrhea or rhinorrhea. Jaw alignment normal. Dentition baseline. No obvious bony step-offs. No septal hematoma. No evidence of ocular entrapment. Eye: COMMON NORMALS: conjunctivae normal CONJUNCTIVA: Yes conjunctivae normal SCLERA: sclerae normal Neck/C-Spine: COMMON NORMALS: supple GENERAL: Yes trachea midline Resp: COMMON NORMALS: clear to auscultation bilaterally EFFORT & INSPECTION: Yes able to speak in complete sentences AUSCULTATION: clear to auscultation bilaterally Cardio: COMMON NORMALS: regular rhythm RATE: tachycardic RHYTHM: regular rhythm GI: COMMON NORMALS: Soft to palpation PALPATION: Yes Soft to palpation and No Tenderness to palpation present (GI) Extremity: NARRATIVE EXTREMITY EXAM: Left heel chronic appearing wound, dressing appears appropriate, no evidence of superimposed infection. GENERAL: Yes normal exam except as noted and No edema Neuro: COMMON NORMALS: moves all extremities SENSORIUM/ORIENTATION: Yes alert and Yes Orientation impaired Psych: MEMORY/COGNITION: Yes memory grossly impaired and Yes cognition grossly impaired Course Vital Signs: Vital signs: Vital Signs Temperature 98.3 F 06/24/22 18:02 Pulse Rate 62 06/24/22 18:02 Respiratory Rate 16 06/24/22 18:02 Blood Pressure 172/76 06/24/22 18:02 Pulse Oximetry 97 06/24/22 18:02 Oxygen Delivery Me thod 06/24/22 16:00 Oxygen Flow Rate 1.5 06/23/22 08:00 MDM - Fall Medical Decision Making 82-year-old gentleman with history of dementia presenting to the emergency department due to fall under unclear circumstances. Exam as above with no focal abnormalities. Head to toe exam performed. EKG notable for sinus rhythm with borderline left axis deviation, normal intervals, no STEMI. Labs with no significant hematologic or metabolic abnormalities as appropriate provoking event for fall. Negative range 2-hour delta troponin. Urinalysis concerning for urinary tract infection. CT head without new acute traumatic injury, CT cervical spine without acute traumatic injury. CT chest abdomen and pelvis demonstrate similar lung findings formal results of dilated left ureter without clear obstructing lesion. There is a left acetabular fracture left femoral neck fracture. CMS intact and injuries closed. Patient treated with anxiolysis, antibiotics for UTI. Discussed case with orthopedics on-call, patient likely nonoperative management however I will admit him for PT/OT and further treatment/evaluation with inpatient orthopedics consult. The results of ED evaluation were discussed with the patient including plan for admission due to requirement for level of care not available if discharged to prevent significant worsening/deterioration. Patient agreeable with plan. Discussed with hospitalist service who was agreeable to admit patient. Medical Records I reviewed the patient's medical records. Lab Data I reviewed the patient's lab results. 06/22/22 05:02 06/22/22 05:02 Radiology Impressions Cervical Spine CT 06/20/22 08:33 IMPRESSION: 1. No acute fractures involving the cervical spine. 2. Advanced degenerative changes throughout the cervical spine with fusion across the C5-6 disc. Components of central and foraminal stenosis and facet arthritis. Chest/Abdomen/Pelvis CT 06/20/22 08:33 IMPRESSION: 1. No acute thoracic injury. 2. Diffuse bilateral pulmonary groundglass opacifications. Similar to several prior examinations. Consider hypersensitivity pneumonitis or pneumonia. This is probably chronic. 3. No visceral organ injury. 4. No mesenteric hematoma or GI tract obstruction. 5. Distal LEFT ureter is mildly dilated which is new since 05/27/2021. No distal obstructing lesion at the UV junction. Occult neoplasm should be considered. Urology evaluation may be necessary. 6. Acute LEFT acetabular fracture involving the superior and medial margins. 7. Acute slightly impacted LEFT femoral neck fracture. Foot X-Ray 06/20/22 08:33 IMPRESSION: Minimally displaced transverse fracture across the proximal diametaphysis of the 5th toe proximal phalanx. Head CT 06/20/22 08:33 IMPRESSION: 1. Remote LEFT occipital lobe infarct. New infarct since 07/23/2021. 2. Moderate atrophy and small vessel ischemic disease. 3. New LEFT mastoid air cell effusion. Hip/Pelvis X-Ray 06/20/22 10:01 IMPRESSION: 1. Impacted subcapital femoral neck fracture 2. Metallic surgical hardware lumbar spine 3. Cortical irregularity left acetabulum correlating with fracture noted on CT examination Laboratory Results WBC 9.7 10^3/uL (4.0-10.0) 06/20/22 08:45 RBC 4.08 10^6/uL (4.1-5.3) L 06/20/22 08:45 Hgb 12.1 g/dL (11.7-16.6) 06/20/22 08:45 Hct 36.5 % (42.0-52.0) L 06/20/22 08:45 MCV 89.5 fl (80-94) 06/20/22 08:45 MCH 29.7 pg (28.0-34.0) 06/20/22 08:45 MCHC 33.2 g/dL (30.0-36.0) 06/20/22 08:45 RDW 13.8 % (12.1-15.1) 06/20/22 08:45 Plt Count 205 10^3/cmm (130-400) 06/20/22 08:45 MPV 10.6 fL (7.4-10.4) H 06/20/22 08:45 Neut % (Auto) 78.1 % 06/20/22 08:45 Lymph % (Auto) 14.1 % 06/20/22 08:45 [place] % (Auto) 5.0 % 06/20/22 08:45 Eos % (Auto) 1.7 % 06/20/22 08:45 Baso % (Auto) 0.6 % 06/20/22 08:45 Neut # (Auto) 7.59 10^3/uL (1.8-7.7) 06/20/22 08:45 Lymph # (Auto) 1.4 10^3/uL (0.8-4.8) 06/20/22 08:45 [place] # (Auto) 0.5 10^3/uL (0.2-0.9) 06/20/22 08:45 Eos # (Auto) 0.2 10^3/uL (0.0-0.8) 06/20/22 08:45 Baso # (Auto) 0.1 10^3/uL (0.0-0.1) 06/20/22 08:45 Nucleated RBC % (auto) 0 % 06/20/22 08:45 Nucleated RBCs # 0.0 /100WBC 06/20/22 08:45 Sodium 136 mmol/L (136-145) 06/20/22 08:45 Potassium 3.5 mmol/L (3.5-5.1) 06/20/22 08:45 Chloride 98 mmol/L (98-107) 06/20/22 08:45 Carbon Dioxide 25 mmol/L (22-29) 06/20/22 08:45 Anion Gap 16.5 (5-19) 06/20/22 08:45 BUN 13 mg/dL (8-23) 06/20/22 08:45 Creatinine 1.0 mg/dL (0.7-1.2) 06/20/22 08:45 GFR Calculation Not Reportable 06/20/22 08:45 Glucose 91 mg/dL (65-115) 06/20/22 08:45 POC Glucose 88 mg/dL (70-110) 06/20/22 08:47 Estimat Average Glucose 151 06/20/22 08:45 Hemoglobin A1c 6.9 % (4.0-6.0) H 06/20/22 08:45 Calculated Osmolality 282 mOsm/kg (285-295) L 06/20/22 08:45 Calcium 9.0 mg/dL (8.5-10.5) 06/20/22 08:45 Total Bilirubin 0.6 mg/dL (0.15-1.2) 06/20/22 08:45 AST 10 U/L (0-40) 06/20/22 08:45 ALT 7 U/L (0-41) 06/20/22 08:45 Alkaline Phosphatase 103 U/L (40-130) 06/20/22 08:45 Troponin T Baseline 41 ng/L (0-15) H 06/20/22 08:45 Troponin T 120 Minute 38.05 ng/L (0-15) H 06/20/22 10:55 Delta Troponin T -2.95 ABS# (0-10) L 06/20/22 10:55 Troponin T Hi Sens 6Hr 38.87 ng/L (0-15) H 06/20/22 14:38 Troponin T Hi Sens 6Hr Delta -2.13 ng/L (0-12) L 06/20/22 14:38 Total Protein 6.6 g/dL (6.6-8.7) 06/20/22 08:45 Albumin 3.7 g/dL (3.5-5.2) 06/20/22 08:45 Globulin 2.9 g/dL (1.3-4.6) 06/20/22 08:45 Procalcitonin 0.51 ng/mL (0-0.5) H 06/20/22 08:45 TSH 4.58 uIU/mL (0.27-4.20) H 06/20/22 08:45 TSH 4.60 uIU/mL (0.27-4.20) H 06/20/22 08:45 Free T4 1.03 ng/dL (0.82-1.77) 06/20/22 08:45 Urine Color Yellow (Yellow) 06/20/22 11:20 Urine Appearance Cloudy (CLEAR) A 06/20/22 11:20 Urine pH 7 (5-7) 06/20/22 11:20 Ur Specific [place] 1.005 (1.005-1.030) 06/20/22 11:20 Urine Protein 1+ (Negative) H 06/20/22 11:20 Urine Glucose (UA) 2+ (Normal) H 06/20/22 11:20 Urine Ketones Negative (Negative) 06/20/22 11:20 Urine Blood 3+ (Negative) H 06/20/22 11:20 Urine Nitrate Negative (Negative) 06/20/22 11:20 Urine Bilirubin Neg (Negative) 06/20/22 11:20 Urine Urobilinogen Neg mg/dL (Negative) 06/20/22 11:20 Ur Leukocyte Esterase 2+ (Negative) H 06/20/22 11:20 Urine RBC 5-10 /hpf (0-2) H 06/20/22 11:20 Urine WBC >100 /hpf (0-5) H 06/20/22 11:20 Ur Squamous Epith Cells 0-4 /hpf (0-5) H 06/20/22 11:20 Amorphous Sediment Not Reportable 06/20/22 11:20 Urine Bacteria 1+ /hpf (NONE) H 06/20/22 11:20 Discharge Plan Discharge Patient Disposition: Placed in Observation Admit Provider: Chloe Nelson Clinical Impression: Left acetabular fracture, Fracture of femoral neck, left, Acute UTI Coding Level of Care Code ED [employer] Supervisor for Yasmeen Hartley
--- NOTE | 2022-06-20 08:33 | XRR_ITS ---
PROCEDURE INFORMATION: Exam: XR Left Foot Exam date and time: 06/20/2022 8:40 AM Age: 82 years old Clinical indication: Injury or trauma; Blunt trauma; Left; Injury details: Fall, lt foot pain; Additional info: Fall, chronic heal wound, pain TECHNIQUE: Imaging protocol: Radiologic exam of the left foot. Views: 3 or more views. COMPARISON: CR XR foot LT min 3V* [id number] 10/11/2019 2:08 PM FINDINGS: Bones/joints: There is a minimally displaced transverse fracture across the proximal diametaphysis of the 5th toe proximal phalanx. No dislocation. Swelling of the surrounding soft tissues is present. Tiny dorsal and plantar calcaneal enthesophytes noted. Soft tissues: See Bones/joints finding. XR/XR foot LT min 3V* [id number] IMPRESSION: Minimally displaced transverse fracture across the proximal diametaphysis of the 5th toe proximal phalanx.
--- NOTE | 2022-06-20 08:33 | CT_ITS ---
WS: [id number] CT HEAD NONCONTRAST HISTORY: fall, ams TECHNIQUE: Contiguous axial imaging performed through the brain in 2.5 mm imaging. Bone and soft tiss ue windows. Sagittal and coronal reformats reviewed. All CT scans at [facility] use at least one of these dose optimization techniques: automated exposure control; mA and/or kV adjustment per pa tient size (includes targeted exams where dose is matched to clinical indication); or iterative recon struction. DLP: 1290.80 mGy.cm COMPARISON: 07/23/2021 No acute intracranial hemorrhage, midline shift or mass effect. Moderate diffuse atrophy. Remote LEFT occipital lobe infarct. Mild diffuse small vessel ischemic dis ease. Ventricles: Mild ventriculomegaly on the basis of atrophy. No inferior displacement of cerebellar to nsils. Paranasal sinuses: As visualized are clear. Mastoid air cells: There is a large amount of fluid throughout the LEFT mastoid air cells. This is ne w since the prior study. There is also increased debris within the external auditory canal. No fractu re is identified involving the temporal bone. Calvarium and scalp: Skull is intact with no soft tissue edema or swelling. CT/CT head wo con* [id number] IMPRESSION: 1. Remote LEFT occipital lobe infarct. New infarct since 07/23/2021. 2. Moderate atrophy and small vessel ischemic disease. 3. New LEFT mastoid air cell effusion.
--- NOTE | 2022-06-20 08:33 | CT_ITS ---
WS: [id number] CT CHEST, ABDOMEN AND PELVIS WITH CONTRAST HISTORY: fall, ams TECHNIQUE: Contiguous 5 mm axial imaging performed through the chest, abdomen and pelvis with IV cont rast, oral contrast has not been provided. Coronal and sagittal reformats chest. Coronal and sagittal reformats through the abdomen and pelvis. All CT scans at [facility] use at least one of the se dose optimization techniques: automated exposure control; mA and/or kV adjustment per patient size (includes targeted exams where dose is matched to clinical indication); or iterative reconstruction. CONTRAST: Omnipaque 350; 95 mL IV. DLP: 957.93 mGy.cm COMPARISON: 05/27/2021 and 03/22/[address]: Bilateral patchy opacifications and groundglass attenuation, RIGHT greater than LEFT. These have been present on prior studies may be related to hypersensitivity pneumonia or pneumonitis. No d ense consolidation or mass. No lobar collapse. Mild atherosclerosis aorta. Normal caliber. No dissect ion or aneurysm. Normal size pulmonary artery. Mild cardiomegaly. Moderate to severe coronary artery disease. No adenopathy. No pneumothorax. Small hiatal hernia. Increase in thoracic kyphosis. Mild anterior wedging of T3 and T7. No interval change since 03/22/2020 . Remote impacted fracture RIGHT humeral head. Abdomen CT: Normal liver and spleen. Normal portal vein. Normal gallbladder. Mild stable nodularity R IGHT adrenal gland. Normal LEFT adrenal gland. Atrophic pancreas. No bile duct dilatation. Bilateral cortical thinning and atrophy with perinephric stranding. Mild variable enhancement is seen on the pr ior study. There is breathing motion artifact limiting evaluation of the kidneys further. No hydronep hrosis. Heavy calcification within the abdominal aorta. Mild stenosis at the celiac axis. No ascites or hemoperitoneum. No mesenteric hematoma. The GI tract is negative. No wall thickening an d no obstruction. Normal appendix. Distal colon diverticulosis. Pelvic CT: Moderately distended urinary bladder. Prostate gland is enlarged and heterogeneous. Distal LEFT ureter is mildly dilated. No obstructing lesion identified. Dilatation begins within the mid to distal ureter. New finding since 05/27/2021. Prior posterior lumbar fusion at L4-5. Acute LEFT acetabular fracture. There is involvement of the superior acetabulum with extension along the medial acetabular rim. There is also very minimally impacted femoral neck fracture of the LEFT hi p. CT/CT chest abdpel w/*[id number] IMPRESSION: 1. No acute thoracic injury. 2. Diffuse bilateral pulmonary groundglass opacifications. Similar to several prior examinations. Consider hypersensitivity pneumonitis or pneumonia. This is probably chronic. 3. No visceral organ injury. 4. No mesenteric hematoma or GI tract obstruction. 5. Distal LEFT ureter is mildly dilated which is new since 05/27/2021. No distal obstructing lesion at the UV junction. Occult neoplasm should be considered. U rology evaluation may be necessary. 6. Acute LEFT acetabular fracture involving the superior and medial margins. 7. Acute slightly impacted LEFT femoral neck fracture.
--- NOTE | 2022-06-20 08:33 | CT_ITS ---
WS: [id number] CT CERVICAL SPINE HISTORY: fall, ams TECHNIQUE: Contiguous 2.0 mm axial imaging performed through the entire cervical spine. Sagittal and coronal reformats also performed. All CT scans at [facility] use at least one of these dose o ptimization techniques: automated exposure control; mA and/or kV adjustment per patient size (include s targeted exams where dose is matched to clinical indication); or iterative reconstruction. DLP: 1290.80 mGy.cm COMPARISON: 03/22/2020 Advanced degenerative changes throughout the cervical spine. Complete fusion across the disc space of C5-6. Severe disc space narrowing at C6-7. These changes were present on the prior study. There is a lso mild anterior wedging of T3 which is stable. Facet joints are normally aligned. Odontoid is intac t. Craniocervical junction is normal. Bilateral facet joint arthritis throughout the cervical spine. Moderate central canal stenosis at C5-6 and C6-7 due to combination of disc, osteophyte and facet dis ease. Mild groundglass attenuation RIGHT upper lobe. Atherosclerosis aortic arch. There is a lucency throug h the inferior articular facet of the LEFT C5 vertebral body which is stable since 2019. CT/CT cervical spin wo con* [id number] IMPRESSION: 1. No acute fractures involving the cervical spine. 2. Advanced degenerative changes throughout the cervical spine with fusion acr oss the C5-6 disc. Components of central and foraminal stenosis and facet arthr itis.
--- NOTE | 2022-06-20 08:54 | ECG_ITS ---
[facility] Test Date: 2022-06-20 Pat Name: Castro Coley Department: Room: Gender: Male Interventional Technologist: : 1940 Requested By: Jose Guerin Order Number: [id number] Eduardo MD: Armen Pierre M.D. Measurements Intervals [place] Rate: 73 P: 38 NH: 162 QRS: -29 QRSD: 106 T: 72 QT: 369 QTc: 408 Interpretive Statements SINUS RHYTHM BORDERLINE LEFT AXIS DEVIATION [QRS AXIS < -20] MINIMAL VOLTAGE CRITERIA FOR LVH, CONSIDER NORMAL VARIANT [MEETS CRITERIA IN ONE OF: R(aVL), S(V1), R(V5), R(V5/V6)+S(V1)] NONSPECIFIC ST & T-WAVE ABNORMALITY INTERPRETATION BASED ON A DEFAULT AGE OF 40 YEARS Compared to ECG 12/15/2019 13:02:55 No significant changes Electronically Signed On 06-20-2022 21:43:10 SUPERVISOR ORCHARD by Armen Pierre M.D. [id number] f
[2022-06-20 09:02] LABS: Glucose Point of Care 88 mg/dL (70-110)
[2022-06-20 09:08] LABS: Basophils # 0.1 10^3/uL (0.0-0.1); Basophils % 0.6 %; Eosinophils # 0.2 10^3/uL (0.0-0.8); Eosinophils % 1.7 %; Hematocrit 36.5 % (42.0-52.0); Hemoglobin 12.1 g/dL (11.7-16.6); Lymphocytes # 1.4 10^3/uL (0.8-4.8); Lymphocytes % 14.1 %; Mean Corpuscular HGB Conc 33.2 g/dL (30.0-36.0); Mean Corpuscular Hemoglobin 29.7 pg (28.0-34.0); Mean Corpuscular Volume 89.5 fl (80-94); Mean Platelet Volume 10.6 fL (7.4-10.4); Monocytes # 0.5 10^3/uL (0.2-0.9); Neutrophils # 7.59 10^3/uL (1.8-7.7); Neutrophils % 78.1 %; Nucleated Red Blood Cells % 0 %; Platelet Count 205 10^3/cmm (130-400); Red Blood Count 4.08 10^6/uL (4.1-5.3); Red Cell Distribution Width 13.8 % (12.1-15.1); White Blood Count 9.7 10^3/uL (4.0-10.0)
[2022-06-20 09:15] LABS: Troponin(5th) Baseline 41 ng/L (0-15)
--- NOTE | 2022-06-20 09:16 | PC.PHAR ---
pt is from [facility]-per shaun nurse at [facility] states the pt had no insulins today-
[2022-06-20 09:22] LABS: Alanine Aminotransferase 7 U/L (0-41); Albumin Level 3.7 g/dL (3.5-5.2); Alkaline Phosphatase 103 U/L (40-130); Anion Gap 16.5 (5-19); Aspartate Amino Transferase 10 U/L (0-40); Blood Urea Nitrogen 13 mg/dL (8-23); Carbon Dioxide 25 mmol/L (22-29); Chloride 98 mmol/L (98-107); Globulin 2.9 g/dL (1.3-4.6); Glucose 91 mg/dL (65-115); Osmolality Calculated 282 mOsm/kg (285-295); Potassium 3.5 mmol/L (3.5-5.1); Sodium 136 mmol/L (136-145); Total Bilirubin 0.6 mg/dL (0.15-1.2); Total Protein 6.6 g/dL (6.6-8.7)
[2022-06-20] MEDS: iohexol 350 mg/mL 500 mL Btl (per mL) IV (09:40)
[2022-06-20 10:01] LABS: Free T4 Free Thyroxine 1.03 ng/dL (0.82-1.77)
--- NOTE | 2022-06-20 10:01 | XRR_ITS ---
PROCEDURE INFORMATION: Exam: XR Left Hip Exam date and time: 06/20/2022 10:28 AM Age: 82 years old Clinical indication: Injury or trauma; Fall; Blunt trauma (contusions or hematomas); Left; Hip; Additional info: Fall, pain TECHNIQUE: Imaging protocol: Radiologic exam of the left hip. Views: 2 or 3 views hip with pelvis when performed. COMPARISON: CT chest abdpel w/*[id number] 06/20/2022 9:35 AM FINDINGS: Bones/joints: Surgical hardware is seen in the lumbar spine. There is a impacted left subcapsular femoral neck fracture. There is cortical irregularity involving the left acetabulum this finding corresponds to acetabular fracture documented on CT examination Soft tissues: Unremarkable. XR/XR hip LT 2-3V wo/w pel* [id number] IMPRESSION: 1. Impacted subcapital femoral neck fracture 2. Metallic surgical hardware lumbar spine 3. Cortical irregularity left acetabulum correlating with fracture noted on CT examination
--- NOTE | 2022-06-20 10:33 | ECG_ITS ---
[facility] Test Date: 2022-06-20 Pat Name: Castro Coley Department: Room: Gender: Male Waste Disposal Leakage Tester: : 1940 Requested By: Jose Guerin Order Number: [id number] Eduardo MD: Armen Pierre M.D. Measurements Intervals [place] Rate: 94 P: 40 TN: 174 QRS: -9 QRSD: 106 T: 72 QT: 351 QTc: 440 Interpretive Statements SINUS RHYTHM WITH OCCASIONAL VENTRICULAR PREMATURE COMPLEXES LEFT VENTRICULAR HYPERTROPHY AND ST-T CHANGE [VOLTAGE CRITERIA PLUS ST/T ABNORMALITY] INTERPRETATION BASED ON A DEFAULT AGE OF 40 YEARS Compared to ECG 06/20/2022 08:54:24 Ventricular premature complex(es) now present ST (T wave) deviation now present T-wave abnormality no longer present Electronically Signed On 06-20-2022 21:55:23 KEY ACCOUNT EXECUTIVE by Armen Pierre M.D. [id number]
[2022-06-20 11:30] LABS: Troponin 5 2HR 38.05 ng/L (0-15)
[2022-06-20 11:31] LABS: Troponin 5 2HR Delta -2.95 ABS# (0-10)
[2022-06-20 12:16] LABS: Glucose Urine UA 2+ (Normal); Protein Urine 1+ (Negative); Specific Gravity, Urine 1.005 (1.005-1.030); Urine Appearance Cloudy (CLEAR); Urine Color Yellow (Yellow); pH Urine 7 (5-7)
[2022-06-20 12:17] LABS: Add Urine Culture? Yes; Add Urine Microscopic? YES; Bacteria Urine 1+ /hpf; Bilirubin Urine Neg (Negative); Blood Urine 3+ (Negative); Ketones Urine Negative (Negative); Leukocyte Esterase Urine 2+ (Negative); Nitrate Urine Negative (Negative); Squamous Epithelial Cell Urine 0-4 /hpf (0-5); Urobilinogen Urine Neg (Negative); WBC Urine >100 /hpf (0-5)
[2022-06-20] MEDS: cefTRIAXone 1,000 MG in sodium chloride 0.9% (plus) 50 ML 100 MG IV (13:28)
--- NOTE | 2022-06-20 13:47 | PM.HP ---
Providers/Chief Complaint Primary Care Provider: Nick Florian MD Chief Complaint: FALL/ HIP PAIN History of Present Illness Castro Coley is a 82 year old male with PMH of anxiety, dementia, previous CVA, diabetes mellitus, frequent falls presented to ER for AMS. He has few recent falls in last few days. Hx obtained from [place] and son over the phone. Pt unable to provide any history. [place] states he is usually AO x4. CT head negative for bleed however has a remote infarct in left occipital lobe infarct. CT abdomen pelvis shows: 1.? No acute thoracic injury. 2.? Diffuse bilateral pulmonary groundglass opacifications. Similar to several prior examinations. Consider hypersensitivity pneumonitis or pneumonia. This is probably chronic. 3.? No visceral organ injury. 4.? No mesenteric hematoma or GI tract obstruction. 5.? Distal LEFT ureter is mildly dilated which is new since 05/27/2021. No distal obstructing lesion at the UV junction. Occult neoplasm should be considered. Urology evaluation may be necessary. 6.? Acute LEFT acetabular fracture involving the superior and medial margins. 7.? Acute slightly impacted LEFT femoral neck fracture. Orthopedics was called by ER doc. Pt recommended for non weight bearing for now. Escobar placed draining urine. UA shows > 100 WBC, positive leuk esterase. Pt started on ceftriaxone IV. Foot xray shows Minimally displaced transverse fracture across the proximal diametaphysis of the 5th toe proximal phalanx. ? Hip/pelvis shows: 1. Impacted subcapital femoral neck fracture 2. Metallic surgical hardware lumbar spine 3. Cortical irregularity left acetabulum correlating with fracture noted on CT examination ? Pt is DNR/DNI as per paperwork from [place] along with son confirming the same over the phone. Pt on nectar thick liquid diet. Medications/Allergies Home Medications Medication Instructions Recorded Confirmed Last Taken Type bisacodyl 10 mg rectal suppository 10 mg [place] DAILY PRN Constipation 11/01/19 06/20/22 Unknown Rx #30 ea alprazolam 0.5 mg tablet (Xanax) 0.5 mg PO TID PRN Anxiety 05/27/21 06/20/22 06/19/22 12:00 History bisacodyl 5 mg tablet,delayed 10 mg PO DAILY PRN Constipation 05/27/21 06/20/22 Unknown History release (Dulcolax (bisacodyl)) hydrocodone 5 mg-acetaminophen 325 1 tab PO Q6H PRN Pain 05/27/21 06/20/22 06/19/22 History mg tablet hydrocortisone 1 % topical cream 1 applic topical DAILY PRN Rash 05/27/21 06/20/22 Unknown History insulin glargine 100 unit/mL (3 30 unit SUBCUT BEDTIME 05/27/21 06/20/22 06/19/22 History mL) subcutaneous pen (Lantus Solostar U-100 Insulin) magnesium hydroxide 400 mg/5 mL 30 ml PO .EVERY 72 HOURS PRN 05/27/21 06/20/22 Unknown History oral suspension (Milk of Magnesia) Constipation menthol 4 % topical gel (Biofreeze 1 applic topical BID PRN Pain 05/27/21 06/20/22 Unknown History (menthol)) naloxone 0.4 mg/mL injection See Rx Instructions .Route .COMPLEX 05/27/21 06/20/22 Unknown History solution pantoprazole 20 mg tablet,delayed 20 mg PO EVERY OTHER DAY 05/27/21 06/20/22 05/27/21 History release (Protonix) sodium phosphates 19 gram-7 118 ml [place] DAILY PRN Constipation 05/27/21 06/20/22 Unknown History gram/118 mL enema (Fleet Enema) acetaminophen 650 mg rectal 650 mg KY Q4H PRN pain/fever 06/20/22 06/20/22 Unknown History suppository carboxymethylcellulose sodium 1 % 1 drp ophthalmic (eye) BID 06/20/22 06/20/22 Unknown History eye liquid gel drops (Refresh Liquigel) glucagon HCl 1 mg solution for 1 mg SUBCUT Q20M PRN low blood 06/20/22 06/20/22 Unknown History injection (Glucagon (HCl) sugar Emergency Kit) insulin lispro 100 unit/mL 10 unit SUBCUT AC 06/20/22 06/20/22 06/19/22 History subcutaneous half-unit pen (Humalog Joselo KwikPen (U-100)) insulin lispro 100 unit/mL See Rx Instructions .Route .COMPLEX 06/20/22 06/20/22 Unknown History subcutaneous solution (Humalog U-100 Insulin) ipratropium 0.5 mg-albuterol 3 mg 3 ml inhalation Q4H PRN Shortness 06/20/22 06/20/22 Unknown History (2.5 mg base)/3 mL nebulization Of Breath soln ondansetron 4 mg disintegrating 4 mg PO Q8H PRN Nausea And Vomiting 06/20/22 06/20/22 Unknown History tablet triamcinolone acetonide 0.1 % 1 applic topical BID 06/20/22 06/20/22 Unknown History topical ointment Allergies Allergy/AdvReac Type Severity Reaction Status Date / Time ibuprofen Allergy Mild Nausea Verified 05/30/20 09:51 tetanus toxoid, adsorbed Allergy Unknown Verified 05/27/21 16:48 PFSH Acute PFSH: Medical History Constipation COPD (chronic obstructive pulmonary disease) Diabetes mellitus, type II Fall -unclear etiology -telemetry monitoring -VSS; continue to monitor Perineal abscess Pneumonia due to COVID-19 virus Urinary retention Surgical History History of back surgery History of carpal tunnel release of both wrists History of neck surgery S/P excisional debridement Family History Mother , AT AGE 65 Cancer Father , IN HIS 90'S No problems noted. Denies family history of Anesthesia complication Bleeding disorder Social History Smoking and tobacco status: former smoker Alcohol intake: current Alcohol intake frequency: few times a month Housing: Correction Marital status: Number of children: 2 Vitals/I&O/Wt Last Vital Signs Temp 98.0 F 06/20/22 08:21 Pulse 93 06/20/22 11:30 Resp 20 H 06/20/22 11:30 BP 144/104 06/20/22 11:00 Pulse Ox 94 06/20/22 11:00 O2 Del Method 06/20/22 08:21 Weight last 48 hrs Weight 77.111 kg Physical Exam Narrative: Frail appearing elderly male laying in bed, Did not let me examine him fully lungs clear to auscultation Alert but not oriented. only able to tell me his name abdomen soft, no grimacing to palpation Pt wont let me move his lower extremities, no edema noted. No bleeding noted. Not very cooperative during exam Urinary Catheter Management: Escobar: Cath Placed During This Visit: yes Urinary Catheter Date of Insertion: 06/20/22 Urinary Catheter Time of Insertion: 11:25 Data 06/20/22 08:45 06/20/22 08:45 Micro: Microbiology 06/20/22 08:45 Blood Culture - Preliminary Blood SPECIMEN COLLECTED 06/20/22 09:00 Blood Culture - Preliminary Blood SPECIMEN COLLECTED A&P Assessment and plan (1) Fracture of femoral neck, left: (2) Acute UTI: (3) DNR (do not resuscitate): (4) Dementia: (5) Chronic pulmonary aspiration: (6) Aspiration pneumonia: (7) Diabetes mellitus, type II: (8) Urinary retention: (9) Left acetabular fracture: Plan #AMS 2/2 UTI #Hx of remote infarct left occipital lobe #Hx of dementia #Left acetabular fracture #left foot 5th toe proximal fracture #Diabetes #Chronic aspiration #Left ureteral mild dilation, neoplasm not excluded - Continue on nectar thick diet. Check speech eval - Continue on ceftriaxone - Check BCx, check urine culture - Updated son over the phone - Check labs in AM - Orthopedics consulted. Offical note pending - Pt/OT - Pt will be leaving hospital with a escobar and will need urological eval after discharge as outpatient. We currently do not have urology services available. - Continue on NS 75 cc/hr - Continue aspiration precautions. DNR/DNI Heparin sub BID Attestations Medical Necessity Statement*: Cross > 2 midnigth stay for UTI and hip fracture. Diagnoses Fracture of femoral neck, left S72.002A Acute UTI N39.0 DNR (do not resuscitate) Z66 Dementia F03.90 Chronic pulmonary aspiration T17.908A Aspiration pneumonia J69.0 Diabetes mellitus, type II E11.9 Urinary retention R33.9 Left acetabular fracture S32.402A
--- NOTE | 2022-06-20 14:27 | ECG_ITS ---
[facility] Test Date: 2022-06-20 Pat Name: Castro Coley Department: Room: Gender: Male [employer]am [employer]ger: : 1940 Requested By: Jose Guerin Order Number: [id number] Eduardo MD: Armen Pierre M.D. Measurements Intervals [place] Rate: 95 P: 52 FL: 165 QRS: -22 QRSD: 109 T: 69 QT: 342 QTc: 431 Interpretive Statements SINUS RHYTHM LEFT VENTRICULAR HYPERTROPHY AND ST-T CHANGE [VOLTAGE CRITERIA PLUS ST/T ABNORMALITY] POSSIBLE SEPTAL MYOCARDIAL INFARCTION , PROBABLY OLD [30 ms Q WAVE IN V1/V2] Compared to ECG 06/20/2022 10:53:05 Myocardial infarct finding now present Ventricular premature complex(es) no longer present ST (T wave) deviation still present Electronically Signed On 06-20-2022 22:00:44 WELL PULLER by Armen Pierre M.D. [id number]
[2022-06-20 14:38] LABS: Estmated Average Glucose 151; Hemoglobin A1C 6.9 % (4.0-6.0)
[2022-06-20 14:44] LABS: Procalcitonin 0.51 ng/mL (0-0.5); Thyroid Stimulating Hormone 4.58 uIU/mL (0.27-4.20)
[2022-06-20 15:03] LABS: Troponin 5 6HR 38.87 ng/L (0-15)
[2022-06-20 15:05] LABS: Troponin 5 6HR Delta -2.13 ng/L (0-12)
[2022-06-20] MEDS: heparin 5,000 unit/mL INJ 1 mL 5000 UNIT SUBCUT (15:35)
[2022-06-20] MEDS: sodium chloride 0.9% 1,000 ML 75 ML IV (15:59)
[2022-06-20 18:01] LABS: Glucose Point of Care 82 mg/dL (70-110)
[2022-06-20 20:37] LABS: Glucose Point of Care 91 mg/dL (70-110)
[2022-06-21] VITALS (7 sets, daily range): BP systolic 92–133; BP diastolic 60–80; PULSE 65–83; RESP 14–21; TEMP 36.6–37.7; O2SAT 93–100
[2022-06-21] MEDS: heparin 5,000 unit/mL INJ 1 mL 5000 UNIT SUBCUT ×2 (02:50→13:09)
[2022-06-21 04:23] LABS: Basophils # 0.1 10^3/uL (0.0-0.1); Basophils % 0.6 %; Eosinophils # 0.2 10^3/uL (0.0-0.8); Eosinophils % 1.7 %; Hematocrit 31.3 % (42.0-52.0); Hemoglobin 10.3 g/dL (11.7-16.6); Lymphocytes # 1.6 10^3/uL (0.8-4.8); Lymphocytes % 16.8 %; Mean Corpuscular HGB Conc 32.9 g/dL (30.0-36.0); Mean Corpuscular Volume 91.3 fl (80-94); Mean Platelet Volume 10.8 fL (7.4-10.4); Monocytes # 0.7 10^3/uL (0.2-0.9); Monocytes % 6.9 %; Neutrophils # 6.97 10^3/uL (1.8-7.7); Neutrophils % 73.6 %; Nucleated Red Blood Cells % 0 %; Platelet Count 199 10^3/cmm (130-400); Red Blood Count 3.43 10^6/uL (4.1-5.3); Red Cell Distribution Width 14.1 % (12.1-15.1); White Blood Count 9.5 10^3/uL (4.0-10.0)
[2022-06-21 04:39] LABS: Anion Gap 16.4 (5-19); Blood Urea Nitrogen 18 mg/dL (8-23); Calcium 8.9 mg/dL (8.5-10.5); Carbon Dioxide 25 mmol/L (22-29); Chloride 100 mmol/L (98-107); Glucose 77 mg/dL (65-115); Magnesium 1.9 mg/dL (1.7-2.3); Osmolality Calculated 287 mOsm/kg (285-295); Phosphorus 3.3 mg/dL (2.5-4.5); Potassium 3.4 mmol/L (3.5-5.1); Sodium 138 mmol/L (136-145)
[2022-06-21] MEDS: sodium chloride 0.9% 1,000 ML 75 ML IV ×2 (05:29→18:42)
[2022-06-21 05:47] LABS: Glucose Point of Care 89 mg/dL (70-110)
[2022-06-21] MEDS: cefTRIAXone 1,000 MG in sodium chloride 0.9% (plus) 50 ML 100 MG IV (08:56)
[2022-06-21] MEDS: morphine 4 mg/mL SDV 1 mL 1 MG IVP (09:00)
--- NOTE | 2022-06-21 12:27 | P.PN_ITS ---
Subjective Subjective: Seen this morning. Patient earlier got morphine and is therefore sleepy at this time. Discussed with Dr. Cramer over the phone. He is to be nonweightbearing and mobilize from bed to chair. Urine output 1 L overnight. Escobar draining dark-colored urine. Urine culture growing gram-negative rods. Vitals/I&O/Wt Last Vital Signs Temp 97.9 F 06/21/22 11:12 Pulse 65 06/21/22 11:12 Resp 18 06/21/22 11:12 BP 126/76 06/21/22 11:12 Pulse Ox 99 06/21/22 11:12 O2 Del Method 06/21/22 04:00 O2 Flow Rate 1.5 06/21/22 04:00 06/20/22 06/21/22 06/21/22 22:59 06:59 14:59 Intake Total 50 / 100 1200 / 1300 50 / 50 Output Total 1000 / 1000 Balance -950 / -900 1200 / 300 50 / 50 Weight last 48 hrs Weight 77.111 kg Physical Exam Narrative: Frail appearing elderly male laying in bed, lungs clear to auscultation Asleep at this time. Does wake up and answer questions. He nodded that he was not in pain and noted that he was doing okay for now. Did not really talk to me much. abdomen soft, no grimacing to palpation Left hip examined. No bruising or ecchymosis noted at this time. Urinary Catheter Management: Escobar: Cath Placed During This Visit: yes Reason for Continuing Indwelling Catheter: Other Urinary Catheter Date of Insertion: 06/20/22 Urinary Catheter Time of Insertion: 11:25 Data 06/21/22 03:35 06/21/22 03:35 Micro: Microbiology 06/20/22 11:20 Urine Culture - Preliminary Urine,Clean Catch Gram Negative Rods 06/20/22 09:00 Blood Culture - Preliminary Blood NEGATIVE TO DATE 06/20/22 08:45 Blood Culture - Preliminary Blood NEGATIVE TO DATE A&P Assessment and plan (1) Fracture of femoral neck, left: (2) Acute UTI: (3) DNR (do not resuscitate): (4) Dementia: (5) Chronic pulmonary aspiration: (6) Aspiration pneumonia: (7) Diabetes mellitus, type II: (8) Urinary retention: (9) Left acetabular fracture: Plan #AMS 2/2 UTI #Hx of remote infarct left occipital lobe #Hx of dementia #Left acetabular fracture #left foot 5th toe proximal fracture #Diabetes #Chronic aspiration #Left ureteral mild dilation, neoplasm not excluded - Continue on nectar thick diet. Check speech eval - Continue on ceftriaxone. Gram-negative rods in urine culture. Sensitivity pending. - Check BCx, check urine culture -Creatinine 1.3 today. Baseline is normal. Could be secondary to dehydration. Continue on fluids at this time. - Orthopedics consulted. Offical note pending. Personally discussed the case with Dr. Leon. - Pt/OT. Discussed with physical therapy. We will start mobilizing from bed to chair once patient more awake. - Pt will be leaving hospital with a escobar and will need urological eval after discharge as outpatient. We currently do not have urology services available. - Continue on NS 75 cc/hr - Continue aspiration precautions. DNR/DNI Heparin sub BID Attestations 2 Medical Necessity Statement*: Continue management in hospital. Patient be able to discharge to residential once urine culture sensitivities back and mental status improves. Diagnoses Fracture of femoral neck, left S72.002A Acute UTI N39.0 DNR (do not resuscitate) Z66 Dementia F03.90 Chronic pulmonary aspiration T17.908A Aspiration pneumonia J69.0 Diabetes mellitus, type II E11.9 Urinary retention R33.9 Left acetabular fracture S32.402A
[2022-06-21 13:01] LABS: Glucose Point of Care 76 mg/dL (70-110)
[2022-06-21] MEDS: TRAMadol 50 mg Tablet 25 MG PO (15:09)
[2022-06-21 17:05] LABS: Glucose Point of Care 213 mg/dL (70-110)
[2022-06-21] MEDS: insulin lispro 100 unit/1 mL SUBCUT ×2 (17:34→22:25)
[2022-06-21] MEDS: insulin glargine 100 units/1 mL 30 UNIT SUBCUT (22:25)
[2022-06-21 22:51] LABS: Glucose Point of Care 210 mg/dL (70-110)
[2022-06-22 00:42] VITALS: BP 131/77; PULSE 72; RESP 18; TEMP 36.7; O2SAT 99
[2022-06-22] MEDS: heparin 5,000 unit/mL INJ 1 mL 5000 UNIT SUBCUT ×2 (02:03→13:33)
[2022-06-22 04:00] VITALS: BP 135/74; PULSE 77; RESP 19; TEMP 36.7; O2SAT 99
[2022-06-22 05:23] LABS: Basophils # 0.1 10^3/uL (0.0-0.1); Basophils % 0.7 %; Eosinophils # 0.2 10^3/uL (0.0-0.8); Eosinophils % 2.9 %; Hematocrit 29.4 % (42.0-52.0); Hemoglobin 9.7 g/dL (11.7-16.6); Lymphocytes # 1.4 10^3/uL (0.8-4.8); Lymphocytes % 17.2 %; Mean Corpuscular Hemoglobin 30.8 pg (28.0-34.0); Mean Corpuscular Volume 93.3 fl (80-94); Mean Platelet Volume 9.9 fL (7.4-10.4); Monocytes # 0.5 10^3/uL (0.2-0.9); Monocytes % 6.6 %; Neutrophils # 5.89 10^3/uL (1.8-7.7); Neutrophils % 72.1 %; Nucleated Red Blood Cells % 0 %; Platelet Count 190 10^3/cmm (130-400); Red Blood Count 3.15 10^6/uL (4.1-5.3); Red Cell Distribution Width 14.2 % (12.1-15.1); White Blood Count 8.2 10^3/uL (4.0-10.0)
[2022-06-22 05:48] LABS: Anion Gap 14.6 (5-19); Blood Urea Nitrogen 24 mg/dL (8-23); Calcium 8.2 mg/dL (8.5-10.5); Carbon Dioxide 24 mmol/L (22-29); Chloride 106 mmol/L (98-107); Creatinine Clr Calc Pharmacy 48.9614; Glucose 77 mg/dL (65-115); Osmolality Calculated 295 mOsm/kg (285-295); Potassium 3.6 mmol/L (3.5-5.1); Sodium 141 mmol/L (136-145)
[2022-06-22 06:24] LABS: Glucose Point of Care 72 mg/dL (70-110)
[2022-06-22] MEDS: sodium chloride 0.9% 1,000 ML 75 ML IV ×2 (07:37→21:36)
[2022-06-22 08:00] VITALS: BP 118/72; PULSE 70; RESP 17; TEMP 36.9; O2SAT 98
[2022-06-22] MEDS: TRAMadol 50 mg Tablet 25 MG PO (08:16)
[2022-06-22] MEDS: cefTRIAXone 1,000 MG in sodium chloride 0.9% (plus) 50 ML 100 MG IV (08:33)
[2022-06-22] MEDS: acetaminophen 325 mg Tablet 650 MG PO (08:33)
[2022-06-22] MEDS: pantoprazole DR 40 mg Tablet PO (08:33)
--- NOTE | 2022-06-22 11:46 | PM.PN ---
Subjective Subjective: seen today resting comfortably in bed urine culture gram neg rods awaiting ortho consult Vitals/I&O/Wt Last Vital Signs Temp 98.4 F 06/22/22 08:00 Pulse 70 06/22/22 08:00 Resp 17 06/22/22 08:00 BP 118/72 06/22/22 08:00 Pulse Ox 98 06/22/22 08:00 O2 Del Method 06/22/22 08:00 O2 Flow Rate 1.5 06/22/22 07:41 06/21/22 06/22/22 06/22/22 22:59 06:59 14:59 Intake Total 1351.25 / 1641.25 200 / 1841.25 1138.75 / 1138.75 Output Total 200 / 200 Balance 1351.25 / 1641.25 0 / 1641.25 1138.75 / 1138.75 Physical Exam Narrative: Frail appearing elderly male laying in bed, lungs clear to auscultation Not very talkative but says he is comfortable at this time. abdomen soft, no grimacing to palpation Left hip examined. No bruising or ecchymosis noted at this time. Urinary Catheter Management: Escobar: Cath Placed During This Visit: yes Reason for Continuing Indwelling Catheter: Other Urinary Catheter Date of Insertion: 06/20/22 Urinary Catheter Time of Insertion: 11:25 Data 06/22/22 05:02 06/22/22 05:02 Micro: Microbiology 06/20/22 11:20 Urine Culture - Preliminary Urine,Clean Catch Gram Negative Rods 06/20/22 09:00 Blood Culture - Preliminary Blood NEGATIVE TO DATE 06/20/22 08:45 Blood Culture - Preliminary Blood NEGATIVE TO DATE A&P Assessment and plan (1) Fracture of femoral neck, left: (2) Acute UTI: (3) DNR (do not resuscitate): (4) Dementia: (5) Chronic pulmonary aspiration: (6) Aspiration pneumonia: (7) Diabetes mellitus, type II: (8) Urinary retention: (9) Left acetabular fracture: Plan #AMS 2/2 UTI #Hx of remote infarct left occipital lobe #Hx of dementia #Left acetabular fracture #left foot 5th toe proximal fracture #Diabetes #Chronic aspiration #Left ureteral mild dilation, neoplasm not excluded - Continue on nectar thick diet. Check speech eval - Continue on ceftriaxone. Gram-negative rods in urine culture. Sensitivity pending. - Check BCx, check urine culture. studies pending -Creatinine 1.2 today. Baseline is normal. Could be secondary to dehydration. Continue on fluids at this time. - Orthopedics consulted. Offical note pending. Personally discussed the case with Dr. Leon. - Pt/OT. Continue PT - Pt will be leaving hospital with a escobar and will need urological eval after discharge as outpatient. We currently do not have urology services available. - Continue on NS 75 cc/hr - Continue aspiration precautions. DNR/DNI Heparin sub BID Attestations Medical Necessity Statement*: Continue management in hospital. Patient be able to discharge to halfway once urine culture sensitivities back and mental status improves. Diagnoses Fracture of femoral neck, left S72.002A Acute UTI N39.0 DNR (do not resuscitate) Z66 Dementia F03.90 Chronic pulmonary aspiration T17.908A Aspiration pneumonia J69.0 Diabetes mellitus, type II E11.9 Urinary retention R33.9 Left acetabular fracture S32.402A
[2022-06-22 12:00] VITALS: BP 132/63; PULSE 56; RESP 17; TEMP 36.8; O2SAT 99
[2022-06-22 12:10] LABS: Glucose Point of Care 231 mg/dL (70-110)
[2022-06-22] MEDS: insulin lispro 100 unit/1 mL SUBCUT ×2 (12:37→17:16)
[2022-06-22 16:00] VITALS: BP 150/67; PULSE 62; RESP 18; TEMP 36.7; O2SAT 99
[2022-06-22 16:51] LABS: Glucose Point of Care 175 mg/dL (70-110)
[2022-06-22 20:00] VITALS: BP 136/86; PULSE 71; RESP 18; TEMP 37.1; O2SAT 99
--- NOTE | 2022-06-22 20:45 | P.CONIM_ITS ---
Providers/Reason For Consult Consulting Physician/Specialty*: Wang Leon MD; orthopedic surgery Reason for Consult*: Fracture left anterior column acetabulum and femoral neck Attending Physician: Claudia Hinojosa MD Primary Care Provider: Nick Florian MD History of Present Illness History of Present Illness Castro Coley is a 82 year old male retirement resident with a history of multiple falls. Patient is hard of hearing and confused and unable to give any history. He apparently was a transferred to our retirement on 06/20/2022 with complaints of left hip pain. There CT scan revealed a fracture of the left femoral neck and acetabulum. He has been admitted to medicine for management of a urinary tract infection. orthopedics is asked to see the patient regarding the fracture. Medications/Allergies Home Medications Medication Instructions Recorded Confirmed Last Taken Type bisacodyl 10 mg rectal suppository 10 mg [place] DAILY PRN Constipation 11/01/19 06/20/22 Unknown Rx #30 ea alprazolam 0.5 mg tablet (Xanax) 0.5 mg PO TID PRN Anxiety 05/27/21 06/20/22 06/19/22 12:00 History bisacodyl 5 mg tablet,delayed 10 mg PO DAILY PRN Constipation 05/27/21 06/20/22 Unknown History release (Dulcolax (bisacodyl)) hydrocodone 5 mg-acetaminophen 325 1 tab PO Q6H PRN Pain 05/27/21 06/20/22 06/19/22 History mg tablet hydrocortisone 1 % topical cream 1 applic topical DAILY PRN Rash 05/27/21 06/20/22 Unknown History insulin glargine 100 unit/mL (3 30 unit SUBCUT BEDTIME 05/27/21 06/20/22 06/19/22 History mL) subcutaneous pen (Lantus Solostar U-100 Insulin) magnesium hydroxide 400 mg/5 mL 30 ml PO .EVERY 72 HOURS PRN 05/27/21 06/20/22 Unknown History oral suspension (Milk of Magnesia) Constipation menthol 4 % topical gel (Biofreeze 1 applic topical BID PRN Pain 05/27/21 06/20/22 Unknown History (menthol)) naloxone 0.4 mg/mL injection See Rx Instructions .Route .COMPLEX 05/27/21 06/20/22 Unknown History solution pantoprazole 20 mg tablet,delayed 20 mg PO EVERY OTHER DAY 05/27/21 06/20/22 05/27/21 History release (Protonix) sodium phosphates 19 gram-7 118 ml [place] DAILY PRN Constipation 05/27/21 06/20/22 Unknown History gram/118 mL enema (Fleet Enema) acetaminophen 650 mg rectal 650 mg [place] Q4H PRN pain/fever 06/20/22 06/20/22 Unknown History suppository carboxymethylcellulose sodium 1 % 1 drp ophthalmic (eye) BID 06/20/22 06/20/22 Unknown History eye liquid gel drops (Refresh Liquigel) glucagon HCl 1 mg solution for 1 mg SUBCUT Q20M PRN low blood 06/20/22 06/20/22 Unknown History injection (Glucagon (HCl) sugar Emergency Kit) insulin lispro 100 unit/mL 10 unit SUBCUT AC 06/20/22 06/20/22 06/19/22 History subcutaneous half-unit pen (Humalog Joselo KwikPen (U-100)) insulin lispro 100 unit/mL See Rx Instructions .Route .COMPLEX 06/20/22 06/20/22 Unknown History subcutaneous solution (Humalog U-100 Insulin) ipratropium 0.5 mg-albuterol 3 mg 3 ml inhalation Q4H PRN Shortness 06/20/22 06/20/22 Unknown History (2.5 mg base)/3 mL nebulization Of Breath soln ondansetron 4 mg disintegrating 4 mg PO Q8H PRN Nausea And Vomiting 06/20/22 06/20/22 Unknown History tablet triamcinolone acetonide 0.1 % 1 applic topical BID 06/20/22 06/20/22 Unknown History topical ointment Allergies Allergy/AdvReac Type Severity Reaction Status Date / Time ibuprofen Allergy Mild Nausea Verified 05/30/20 09:51 tetanus toxoid, adsorbed Allergy Unknown Verified 05/27/21 16:48 Current Medications Generic Name Dose Route Start Last Admin Trade Name Freq PRN Reason Stop Dose Admin Acetaminophen 650 mg 06/20/22 13:48 06/22/22 08:33 Acetaminophen 325 Mg Tablet PO 650 mg Q6H PRN Administration Mild/Mod Pain Or Temp >/= 101 Heparin Sodium (Porcine) 5,000 unit 06/20/22 14:00 06/22/22 13:33 Heparin 5,000 Unit/Ml Inj 1 Ml SUBCUT 5,000 unit Q12H MARIAJOSE Administration Sodium Chloride 1,000 mls @ 75 mls/hr 06/20/22 14:00 06/22/22 07:37 Sodium Chloride 0.9% IV 75 mls/hr .[id number] MARIAJOSE Administration Ceftriaxone Sodium 1,000 mg/ 50 mls @ 100 mls/hr 06/21/22 09:00 06/22/22 09:42 Sodium Chloride IV Infused DAILY MARIAJOSE Infusion Protocol Insulin Glargine 30 unit 06/20/22 21:00 06/21/22 22:25 Insulin Glargine 100 Units/1 Ml SUBCUT 30 unit BEDTIME MARIAJOSE Administration Insulin Human Lispro 0 unit 06/20/22 18:00 06/22/22 17:16 Insulin Lispro 100 Unit/1 Ml SUBCUT 4 unit WM&BEDTIME MARIAJOSE Administration Protocol Pantoprazole Sodium 40 mg 06/22/22 09:00 06/22/22 08:[address] 40 Mg Tablet PO 40 mg Q48H MARIAJOSE Administration Tramadol HCl 25 mg 06/21/22 14:32 06/22/22 08:16 Tramadol 50 Mg Tablet PO 25 mg Q6H PRN Administration MODERATE PAIN PFSH Acute PFSH: Medical History Constipation COPD (chronic obstructive pulmonary disease) Diabetes mellitus, type II Fall -unclear etiology -telemetry monitoring -VSS; continue to monitor Perineal abscess Pneumonia due to COVID-19 virus Urinary retention Surgical History History of back surgery History of carpal tunnel release of both wrists History of neck surgery S/P excisional debridement Family History Mother , AT AGE 65 Cancer Father , IN HIS 90'S No problems noted. Denies family history of Anesthesia complication Bleeding disorder Social History Smoking and tobacco status: former smoker Alcohol intake: current Alcohol intake frequency: few times a month Housing: Prison Marital status: Number of children: 2 Vitals/I&O/Wt Last Vital Signs Temp 98.0 F 06/22/22 16:00 Pulse 62 06/22/22 16:00 Resp 18 06/22/22 16:00 BP 150/67 06/22/22 16:00 Pulse Ox 99 06/22/22 16:00 O2 Del Method 06/22/22 16:00 O2 Flow Rate 1.5 06/22/22 07:41 06/22/22 06/22/22 06/22/22 06:59 14:59 22:59 Intake Total 200 / 1841.25 1378.75 / 1378.75 120 / 1498.75 Output Total 200 / 200 600 / 600 Balance 0 / 1641.25 1378.75 / 1378.75 -480 / 898.75 Physical Exam Narrative: Castro is supine he awakens to voice. He has no particular deformity of either lower extremity He has really no appreciable pain with internal or external rotation of the left hip. He has a palpable left dorsalis pedis pulse. He will flex and extend his left toes and ankle without motor deficits Urinary Catheter Management: Padron: Cath Placed During This Visit: yes Reason for Continuing Indwelling Catheter: Chronic Indwelling Urinary Catheter on Admission Urinary Catheter Date of Insertion: 06/20/22 Urinary Catheter Time of Insertion: 11:25 Data 06/22/22 05:02 06/22/22 05:02 Micro: Microbiology 06/20/22 11:20 Urine Culture - Final Urine,Clean Catch Providencia stuartii Other data: I reviewed his CT is in the impacted slightly angulated fracture of the left femoral neck. A&P Assessment and plan (1) Fracture of femoral neck, left: (2) Left acetabular fracture: The patient has nondisplaced fractures of the left anterior column acetabulum and left femoral neck. Certainly treatment of the acetabular fracture will be nonoperative. The argument for femoral neck fixation obliquely allow the patient to be more rapidly mobilized. His mobility would be limited with the acetabulum. His demands are are low. I think the best option will be mobilizing bed to chair for 6 weeks to allow healing of both fractures and progressive full weightbearing. I will repeat radiographs in 2 weeks to be sure no displacement occurs. Coding Level of Care Code Acute Code for [facility] Diagnoses Fracture of femoral neck, left S72.002A Left acetabular fracture S32.402A
[2022-06-22 21:01] LABS: Glucose Point of Care 73 mg/dL (70-110)
[2022-06-23] VITALS: BP 151/71; PULSE 78; RESP 18; TEMP 36.8; O2SAT 92
[2022-06-23] MEDS: ALPRAZolam 0.5 mg Tablet PO (03:03)
[2022-06-23] MEDS: heparin 5,000 unit/mL INJ 1 mL 5000 UNIT SUBCUT ×2 (03:03→13:32)
[2022-06-23 04:00] VITALS: BP 125/74; PULSE 73; RESP 16; TEMP 36.7; O2SAT 96
[2022-06-23 08:00] VITALS: BP 139/71; PULSE 64; RESP 16; TEMP 36.8; O2SAT 92
[2022-06-23 09:05] LABS: Glucose Point of Care 117 mg/dL (70-110)
[2022-06-23] MEDS: sodium chloride 0.9% 1,000 ML 75 ML IV (10:30)
[2022-06-23] MEDS: cefTRIAXone 1,000 MG in sodium chloride 0.9% (plus) 50 ML 100 MG IV (10:30)
[2022-06-23 11:20] LABS: Glucose Point of Care 249 mg/dL (70-110)
[2022-06-23 11:35] VITALS: BP 167/72; PULSE 75; RESP 16; TEMP 36.9; O2SAT 96
--- NOTE | 2022-06-23 11:48 | PC.SOCIAL ---
IMM Update pg 2 of IMM updated and reviewed w/ patients guardian Jon via phone. Copy left @ bedside and copy dated, initialed and placed in chart.
--- NOTE | 2022-06-23 12:11 | PM.PN ---
Subjective Subjective: Procidentia sensitive to Augmentin and ceftriaxone Patient is requiring hearing aid Still seem to be slightly confused Fatigued and lethargic Ate his breakfast Currently on room air Hypertensive Vitals/I&O/Wt Last Vital Signs Temp 98.5 F 06/23/22 11:35 Pulse 75 06/23/22 11:35 Resp 16 06/23/22 11:35 BP 167/72 06/23/22 11:35 Pulse Ox 96 06/23/22 11:35 O2 Del Method 06/23/22 11:35 O2 Flow Rate 1.5 06/22/22 20:00 06/22/22 06/23/22 06/23/22 22:59 06:59 14:59 Intake Total 1360 / 2738.75 1377.5 / 1377.5 Output Total 600 / 600 1000 / 1600 Balance 760 / 2138.75 -1000 / 1138.75 1377.5 / 1377.5 Physical Exam Narrative: Very hard of hearing Able to answer few questions Currently on room air Hypertensive Lower extremity are warm however bluish tinge noted dorsum of foot Sensitive to touch No active respiratory distress S1, S2 regular GCS 15 Mild facial droop noted Urinary Catheter Management: Padron: Cath Placed During This Visit: yes Reason for Continuing Indwelling Catheter: Other Urinary Catheter Date of Insertion: 06/20/22 Urinary Catheter Time of Insertion: 11:25 Data 06/22/22 05:02 06/22/22 05:02 Micro: Microbiology 06/20/22 11:20 Urine Culture - Final Urine,Clean Catch Providencia stuartii A&P Assessment and plan (1) Fracture of femoral neck, left: (2) Acute UTI: (3) Chronic pulmonary aspiration: (4) Dementia: (5) DNR (do not resuscitate): (6) Urinary retention: Plan Dysphagia diet Continue ceftriaxone during hospitalization for UTI Patient is still slightly confused Hopefully will be able to discharge him by tomorrow Hemodynamically stable Patient is able to eat breakfast on his own He will be discharged with a Padron catheter will need outpatient urology services for left ureteral concerning changes on CT scan Discontinue IV fluids DNR/DNI DVT prophylaxis on board He is from retirement, will return for SNF Attestations Medical Necessity Statement*: Awaiting placement Diagnoses Fracture of femoral neck, left S72.002A Acute UTI N39.0 Chronic pulmonary aspiration T17.908A Dementia F03.90 DNR (do not resuscitate) Z66 Urinary retention R33.9
--- NOTE | 2022-06-23 12:12 | USCV_ITS ---
Castro Coley Age: 82 Gender: M : 1940 Exam Date: 06/23/2022 12:44 Ordering Phys: Claudia Hinojosa MD Technologist: CT Exam Location: [facility] [place] Indication: cyanosis Risk Factors: Previous Vascular Surgery: RIGHT LEFT BP: 164.0 / 67.00 BP: 169.0/ 70.00 0 0 Waveform Velocity (cm/s) Velocity (cm/s) Waveform Triphasic 98.7 Iliac Prox 66.2 Triphasic Triphasic 90.4 Iliac Mid 69.0 Triphasic Triphasic 73.7 Iliac Distal 60.7 Triphasic Triphasic 96.2 MEDICAL LIBRARIAN 84.5 Triphasic Triphasic 72.7 SFA Prox 70.2 Triphasic Biphasic 91.2 SFA Mid 53.0 Triphasic Biphasic SFA Dist Triphasic 64.8 55.6 Biphasic 65.4 POP 47.9 Triphasic Biphasic 74.6 SENIOR LINUX UNIX ADMINISTRATOR 61.3 Monophasic Monophasic 21.0 DPA 0.0 N/A 0.9 JEAN PAUL 1.0 FINDINGS Mild diffuse plaques were noted in femoral, popliteal and infrapopliteal vessels on the right side JEAN PAUL on the right side was 0.9. There is flow in the right dorsalis pedis artery was sluggish Mild to moderate diffuse plaques were noted in the distal SFA, popliteal and infrapopliteal vessels CONCLUSIONS 1. Minimally diminished resting JEAN PAUL on the right side of 0.90. Mild diffuse plaques were noted in the femoral, popliteal and infrapopliteal vessels. Sluggish flow in the dorsalis pedis artery on the right side suggesting hemodynamically significant stenosis. 2. Normal resting JEAN PAUL of 1.0 on the left side. Mild to moderate diffuse plaque in the distal SFA, popliteal and infrapopliteal vessels. 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 No similar previous studies are available for comparison Dr Armen Pierre MD [facility] (Electronically Signed) Final Date: 23 June 2022 18:16 S
[2022-06-23] MEDS: insulin lispro 100 unit/1 mL SUBCUT ×3 (13:31→21:35)
[2022-06-23 15:46] VITALS: BP 126/66; PULSE 68; RESP 16; TEMP 37.2; O2SAT 95
[2022-06-23 16:36] LABS: Glucose Point of Care 187 mg/dL (70-110)
[2022-06-23 20:00] VITALS: BP 159/73; PULSE 69; RESP 17; TEMP 37.2; O2SAT 97
[2022-06-23 20:48] LABS: Glucose Point of Care 175 mg/dL (70-110)
[2022-06-23] MEDS: insulin glargine 100 units/1 mL 30 UNIT SUBCUT (21:36)
[2022-06-24] VITALS: BP 176/78; PULSE 66; RESP 17; TEMP 37.2; O2SAT 96
[2022-06-24] MEDS: heparin 5,000 unit/mL INJ 1 mL 5000 UNIT SUBCUT ×2 (02:17→14:03)
[2022-06-24 04:00] VITALS: BP 119/72; PULSE 78; RESP 16; TEMP 37.2; O2SAT 97
[2022-06-24 06:33] LABS: Glucose Point of Care 98 mg/dL (70-110)
--- NOTE | 2022-06-24 07:05 | PC.NURSE ---
Bedside report completed with Nathan ALFONSO at this time. Patient resting in bed. No obvious signs of distress noted.
[2022-06-24 08:00] VITALS: BP 176/76; PULSE 62; RESP 16; TEMP 36.8; O2SAT 95
[2022-06-24] MEDS: pantoprazole DR 40 mg Tablet PO (08:50)
[2022-06-24] MEDS: cefTRIAXone 1,000 MG in sodium chloride 0.9% (plus) 50 ML 100 MG IV (08:50)
[2022-06-24 11:18] LABS: Glucose Point of Care 147 mg/dL (70-110)
[2022-06-24] MEDS: insulin lispro 100 unit/1 mL SUBCUT (11:50)
[2022-06-24 12:00] VITALS: BP 173/76; PULSE 61; RESP 16; TEMP 36.6; O2SAT 95
--- NOTE | 2022-06-24 12:33 | P.DS_ITS ---
Discharge Providers Date of Admission: 06/20/22 15:44 Date of Discharge: June 24, 2022 Attending Provider at Admission: Chloe Nelson MD Attending Provider at Discharge: Claudia Hinojosa MD Primary Care Provider: Nick Florian MD Diagnoses at Discharge Discharge Diagnosis (1) Fracture of femoral neck, left: Status: Acute (2) Acute UTI: Status: Acute (3) Chronic pulmonary aspiration: Status: Acute (4) Dementia: Status: Acute (5) DNR (do not resuscitate): Status: Acute (6) Urinary retention: Status: Acute Reason for Visit Reason for Visit: FALL/ HIP PAIN Hospital Course Hospital Course 82-year-old male who presented to the hospital for management of acetabular fracture, left femoral neck nondisplaced fracture, Dr. Leon orthopedics was consulted who recommended medical management, patient was complaining of foot pain in some skin discoloration to gravity, arterial duplex was done which showed single-vessel disease right JEAN PAUL 0.9, left JEAN PAUL 1 with dorsalis pedis artery occlusion, I have discussed findings with Dr. Sheffield who has recommended him risk factor modification and medical management as well patient's feet are warm no active signs of cyanosis or ischemic ulcers he does have left ankle pressure ulcer which was present on admission Patient was treated for UTI related metabolic encephalopathy which resolved gradually. Patient is very hard of hearing Able to answer simple questions. He does have dysphagia and slurring of speech for which he is requiring dysphagia diet level 4 patient has a remote infarct left occipital lobe CT head was unremarkable during this visit He does have distal ureter dilation occult neoplasm is a concern I have tried to get in touch with the family, left a voicemail He will need urology follow-up outpatient He will get 5 days of antibiotics for UTI procidentia, he will get aspirin for DVT prophylaxis along with atorvastatin for risk factor modification for arterial occlusion. CODE STATUS DNR/DNI Patient will be discharged with the Padron catheter Patient is not eating well I will discontinue his scheduled Premeal insulin and keep him on sliding scale, will also decrease the dose of Lantus from 30 units to 10 units, hemoglobin A1c is 6.9 Physical Exam Narrative: Patient is hard of hearing Able to answer few questions Eating breakfast Laying supine Both feet are warm no active signs of ischemic ulcers Left heel pressure ulcer present since admission Offloading dressing in place S1, S2 regular Abdomen soft Currently on room air Urinary Catheter Management: Padron: Cath Placed During This Visit: yes Reason for Continuing Indwelling Catheter: Other Urinary Catheter Date of Insertion: 06/20/22 Urinary Catheter Time of Insertion: 11:25 Discharge Data Studies Completed and Pending Completed Studies During Hospitalization Category Date Time Status CT cervical spin wo con* [id number] Stat Cat Scan 06/20/22 08:[address] chest abdomen pelvis [CT chest abdpel w/*[id number] Cat Scan 06/20/22 08:33 Completed ] Stat CT head wo con* [id number] Stat Cat Scan 06/20/22 08:33 Completed XR foot LT min 3V* [id number] Stat Exams 06/20/22 08:33 Completed XR hip LT 2-3V wo/w pel* [id number] Stat Exams 06/20/22 10:01 [place] [id number] Routine Ultrasound 06/23/22 12:12 Completed Pending at discharge Category Date Time Status Blood Culture Stat Lab 06/20/22 08:45 Results COVID [SARS Covid-2 Antigen] Routine Lab 06/24/22 12:30 Uncollected Radiology Impressions Cervical Spine CT 06/20/22 08:33 IMPRESSION: 1. No acute fractures involving the cervical spine. 2. Advanced degenerative changes throughout the cervical spine with fusion across the C5-6 disc. Components of central and foraminal stenosis and facet arthritis. Chest/Abdomen/Pelvis CT 06/20/22 08:33 IMPRESSION: 1. No acute thoracic injury. 2. Diffuse bilateral pulmonary groundglass opacifications. Similar to several prior examinations. Consider hypersensitivity pneumonitis or pneumonia. This is probably chronic. 3. No visceral organ injury. 4. No mesenteric hematoma or GI tract obstruction. 5. Distal LEFT ureter is mildly dilated which is new since 05/27/2021. No distal obstructing lesion at the UV junction. Occult neoplasm should be considered. Urology evaluation may be necessary. 6. Acute LEFT acetabular fracture involving the superior and medial margins. 7. Acute slightly impacted LEFT femoral neck fracture. Foot X-Ray 06/20/22 08:33 IMPRESSION: Minimally displaced transverse fracture across the proximal diametaphysis of the 5th toe proximal phalanx. Head CT 06/20/22 08:33 IMPRESSION: 1. Remote LEFT occipital lobe infarct. New infarct since 07/23/2021. 2. Moderate atrophy and small vessel ischemic disease. 3. New LEFT mastoid air cell effusion. Hip/Pelvis X-Ray 06/20/22 10:01 IMPRESSION: 1. Impacted subcapital femoral neck fracture 2. Metallic surgical hardware lumbar spine 3. Cortical irregularity left acetabulum correlating with fracture noted on CT examination Laboratory Results WBC 8.2 10^3/uL (4.0-10.0) 06/22/22 05:02 RBC 3.15 10^6/uL (4.1-5.3) L 06/22/22 05:02 Hgb 9.7 g/dL (11.7-16.6) L 06/22/22 05:02 Hct 29.4 % (42.0-52.0) L 06/22/22 05:02 MCV 93.3 fl (80-94) 06/22/22 05:02 MCH 30.8 pg (28.0-34.0) 06/22/22 05:02 MCHC 33.0 g/dL (30.0-36.0) 06/22/22 05:02 RDW 14.2 % (12.1-15.1) 06/22/22 05:02 Plt Count 190 10^3/cmm (130-400) 06/22/22 05:02 MPV 9.9 fL (7.4-10.4) 06/22/22 05:02 Neut % (Auto) 72.1 % 06/22/22 05:02 Lymph % (Auto) 17.2 % 06/22/22 05:02 [place] % (Auto) 6.6 % 06/22/22 05:02 Eos % (Auto) 2.9 % 06/22/22 05:02 Baso % (Auto) 0.7 % 06/22/22 05:02 Neut # (Auto) 5.89 10^3/uL (1.8-7.7) 06/22/22 05:02 Lymph # (Auto) 1.4 10^3/uL (0.8-4.8) 06/22/22 05:02 [place] # (Auto) 0.5 10^3/uL (0.2-0.9) 06/22/22 05:02 Eos # (Auto) 0.2 10^3/uL (0.0-0.8) 06/22/22 05:02 Baso # (Auto) 0.1 10^3/uL (0.0-0.1) 06/22/22 05:02 Nucleated RBC % (auto) 0 % 06/22/22 05:02 Nucleated RBCs # 0.0 /100WBC 06/22/22 05:02 Sodium 141 mmol/L (136-145) 06/22/22 05:02 Potassium 3.6 mmol/L (3.5-5.1) 06/22/22 05:02 Chloride 106 mmol/L (98-107) 06/22/22 05:02 Carbon Dioxide 24 mmol/L (22-29) 06/22/22 05:02 Anion Gap 14.6 (5-19) 06/22/22 05:02 BUN 24 mg/dL (8-23) H 06/22/22 05:02 Creatinine 1.2 mg/dL (0.7-1.2) 06/22/22 05:02 GFR Calculation Not Reportable 06/22/22 05:02 Glucose 77 mg/dL (65-115) 06/22/22 05:02 POC Glucose 147 mg/dL (70-110) H 06/24/22 11:16 Estimat Average Glucose 151 06/20/22 08:45 Hemoglobin A1c 6.9 % (4.0-6.0) H 06/20/22 08:45 Calculated Osmolality 295 mOsm/kg (285-295) 06/22/22 05:02 Calcium 8.2 mg/dL (8.5-10.5) L 06/22/22 05:02 Phosphorus 3.3 mg/dL (2.5-4.5) 06/21/22 03:35 Magnesium 1.9 mg/dL (1.7-2.3) 06/21/22 03:35 Total Bilirubin 0.6 mg/dL (0.15-1.2) 06/20/22 08:45 AST 10 U/L (0-40) 06/20/22 08:45 ALT 7 U/L (0-41) 06/20/22 08:45 Alkaline Phosphatase 103 U/L (40-130) 06/20/22 08:45 Troponin T Baseline 41 ng/L (0-15) H 06/20/22 08:45 Troponin T 120 Minute 38.05 ng/L (0-15) H 06/20/22 10:55 Delta Troponin T -2.95 ABS# (0-10) L 06/20/22 10:55 Troponin T Hi Sens 6Hr 38.87 ng/L (0-15) H 06/20/22 14:38 Troponin T Hi Sens 6Hr Delta -2.13 ng/L (0-12) L 06/20/22 14:38 Total Protein 6.6 g/dL (6.6-8.7) 06/20/22 08:45 Albumin 3.7 g/dL (3.5-5.2) 06/20/22 08:45 Globulin 2.9 g/dL (1.3-4.6) 06/20/22 08:45 Procalcitonin 0.51 ng/mL (0-0.5) H 06/20/22 08:45 TSH 4.58 uIU/mL (0.27-4.20) H 06/20/22 08:45 TSH 4.60 uIU/mL (0.27-4.20) H 06/20/22 08:45 Free T4 1.03 ng/dL (0.82-1.77) 06/20/22 08:45 Urine Color Yellow (Yellow) 06/20/22 11:20 Urine Appearance Cloudy (CLEAR) A 06/20/22 11:20 Urine pH 7 (5-7) 06/20/22 11:20 Ur Specific [place] 1.005 (1.005-1.030) 06/20/22 11:20 Urine Protein 1+ (Negative) H 06/20/22 11:20 Urine Glucose (UA) 2+ (Normal) H 06/20/22 11:20 Urine Ketones Negative (Negative) 06/20/22 11:20 Urine Blood 3+ (Negative) H 06/20/22 11:20 Urine Nitrate Negative (Negative) 06/20/22 11:20 Urine Bilirubin Neg (Negative) 06/20/22 11:20 Urine Urobilinogen Neg mg/dL (Negative) 06/20/22 11:20 Ur Leukocyte Esterase 2+ (Negative) H 06/20/22 11:20 Urine RBC 5-10 /hpf (0-2) H 06/20/22 11:20 Urine WBC >100 /hpf (0-5) H 06/20/22 11:20 Ur Squamous Epith Cells 0-4 /hpf (0-5) H 06/20/22 11:20 Amorphous Sediment Not Reportable 06/20/22 11:20 Urine Bacteria 1+ /hpf (NONE) H 06/20/22 11:20 Vitals Last Vital Signs Temp 98.2 F 06/24/22 08:00 Pulse 62 06/24/22 08:00 Resp 16 06/24/22 08:00 BP 176/76 06/24/22 08:00 Pulse Ox 95 06/24/22 08:00 O2 Del Method 06/24/22 08:00 O2 Flow Rate 1.5 06/23/22 08:00 Discharge Plan Discharge Patient Disposition: Xfer SNF Condition: Stable Prescriptions: New aspirin 325 mg tablet 325 mg PO DAILY Qty: 30 0RF cefpodoxime 200 mg tablet 200 mg PO BID Qty: 10 0RF Rx Instructions: must administer with a meal/food atorvastatin 10 mg tablet 10 mg PO DAILY Qty: 60 0RF Continued bisacodyl 10 mg suppository 10 mg SC DAILY PRN (Reason: Constipation) Qty: 30 0RF Rx Instructions: give rectally if cant take po if no results from mom hydrocodone-acetaminophen [Sidney] 5-325 mg Tablet 1 tab PO Q6H PRN (Reason: Pain) naloxone 0.4 mg/mL Solution See Rx Instructions .ROUTE .COMPLEX Rx Instructions: 0.4mg injection as needed in the deltoid or thigh may repeat every 3 to 5 minutes for 3 doses and call 911 if no response pantoprazole [Protonix] 20 mg Tablet,Delayed Release (Dr/Ec) 20 mg PO EVERY OTHER DAY alprazolam [Xanax] 0.5 mg Tablet 0.5 mg PO TID PRN (Reason: Anxiety) hydrocortisone 1 % Cream 1 applic topical DAILY PRN (Reason: Rash) Rx Instructions: apply to rash on back Fleet Enema 19-7 gram/118 mL Enema 118 ml SC DAILY PRN (Reason: Constipation) Rx Instructions: give if no results from mom and dulcolax if still no results notify pcp bisacodyl [Dulcolax (bisacodyl)] 5 mg Tablet,Delayed Release (Dr/Ec) 10 mg PO DAILY PRN (Reason: Constipation) Rx Instructions: give if no results from mom Biofreeze (menthol) 4 % Gel 1 applic TOPICAL BID PRN (Reason: Pain) Rx Instructions: apply to legs,arms and back magnesium hydroxide [Milk of Magnesia] 400 mg/5 mL suspension 30 ml PO .EVERY 72 HOURS PRN (Reason: Constipation) Rx Instructions: give if no bm in 3 days acetaminophen 650 mg Suppository 650 mg SC Q4H PRN (Reason: pain/fever) ipratropium-albuterol 0.5 mg-3 mg(2.5 mg base)/3 mL Solution For Nebulization 3 ml INHALATION Q4H PRN (Reason: Shortness Of Breath) Humalog U-100 Insulin 100 unit/mL solution See Rx Instructions .ROUTE .COMPLEX Rx Instructions: per sliding scale four times a day 150-200=3 units 201-250=5 units 251-300=7 units 301-350=9 units 351-400=11 units if bs is greater than 400 or if less than [address] Rosado ODT 4 mg Tablet,Disintegrating 4 mg PO Q8H PRN (Reason: Nausea And Vomiting) triamcinolone acetonide 0.1 % Ointment 1 applic TOPICAL BID Refresh Liquigel 1 % Drops, Liquid Gel 1 drp ophthalmic (eye) BID Glucagon (HCl) Emergency Kit 1 mg Recon Soln 1 mg SUBCUT Q20M PRN (Reason: low blood sugar) Rx Instructions: until target blood sugar attained Changed insulin glargine [Lantus Solostar U-100 Insulin] 100 unit/mL (3 mL) insulin pen 10 unit SUBCUT BEDTIME Qty: 15 0RF Discontinued Humalog Joselo KwikPen U-100 100 unit/mL Insulin Pen, Half-Unit 10 unit SUBCUT AC Discharge Orders: Discharge Order (Routine); Ordered 06/24/22 Ordered By: Claudia Hinojosa Referrals: [facility] [Outside] Jesse Richards MD [Physician] - 2 weeks Nick Florian MD [Primary Care Provider] - Patient Instructions: Opioid Safety Discharge Attestations Time Spent in Discharge Care*: less than 30 min Status at Discharge: Cognitive status at discharge: cognitively intact , Behavioral status at discharge: cooperative , Quality Metrics Clinical Quality Measures [ No reported AMI, CVA or VTE this stay] Coding Level of Care Code Acute Code for Chg Fwd Diagnoses Fracture of femoral neck, left S72.002A Acute UTI N39.0 Chronic pulmonary aspiration T17.908A Dementia F03.90 DNR (do not resuscitate) Z66 Urinary retention R33.9
[2022-06-24 13:31] LABS: SARS Covid-2 Antigen negative (Negative)
--- NOTE | 2022-06-24 15:29 | PC.NURSE ---
This nurse called report to [facility] and spoke with KADEN Benito at 1517. This nurse gave referral/follow-up dates, wound and vital status, date escobar was placed and that he was leaving with it, and activity status. This nurse reported that patient was not currently complaining of pain. Reported that pt is currently wearing glasses and hearing aids.
[2022-06-24 16:00] VITALS: BP 172/76; PULSE 62; RESP 16; TEMP 36.8; O2SAT 97
[2022-06-24 17:21] LABS: Glucose Point of Care 192 mg/dL (70-110)
[2022-06-24 18:02] VITALS: BP 172/76; PULSE 62; RESP 16; TEMP 36.8; O2SAT 97
== END 2022-06-24 17:59 | disposition skilled nursing facility (03) | DRG 689 ==
LOC: ER 12:22 → MEDSURG 15:57
PROVIDERS: Admitting Provider Internal Medicine; Emergency Provider Emergency Medicine; PCP Family Medicine; Visit Provider Internal Medicine
DX: N39.0 Urinary tract infection, site not specified (principal); G93.41 Metabolic encephalopathy; S72.012A Unspecified intracapsular fracture of left femur, initial encounter for closed fracture; S32.402A Unspecified fracture of left acetabulum, initial encounter for closed fracture; S92.512A Displaced fracture of proximal phalanx of left lesser toe(s), initial encounter for closed fracture; W19.XXXA Unspecified fall, initial encounter; R33.9 Retention of urine, unspecified; N28.82 Megaloureter; E86.0 Dehydration; E11.51 Type 2 diabetes mellitus with diabetic peripheral angiopathy without gangrene; R29.6 Repeated falls; R47.81 Slurred speech; R13.10 Dysphagia, unspecified; L89.520 Pressure ulcer of left ankle, unstageable; J44.9 Chronic obstructive pulmonary disease, unspecified; F03.90 Unspecified dementia, unspecified severity, without behavioral disturbance, psychotic disturbance, mood disturbance, and anxiety; Z87.891 Personal history of nicotine dependence; Z66 Do not resuscitate; Z86.73 Personal history of transient ischemic attack (TIA), and cerebral infarction without residual deficits; Z79.4 Long term (current) use of insulin
CPT/HCPCS: 36415; 36416; 51702; 70450; 71260; 72125; 73502; 73630; 74177; 80048; 80053; 81001; 82962; 83036; 83735; 84100; 84145; 84439; 84443; 84484; 85025; 87040; 87077; 87086; 87186; 87426; 92523; 92526; 92610; 93005; 93925; 96365; 96372; 97162; 97530; 99285; J0696; J1644; J1815; J2270; J7030; Q9967

== ENCOUNTER → 2022-07-01 09:26 | Outpatient (BNVA) | payer MEDICARE, MEDICAID, SELFPAY | PROVIDERS: PCP Family Medicine; Visit Provider Nurse Practitioner Family | DX: S72.012A Unspecified intracapsular fracture of left femur, initial encounter for closed fracture (principal); S32.409A Unspecified fracture of unspecified acetabulum, initial encounter for closed fracture; X58.XXXA Exposure to other specified factors, initial encounter | CPT/HCPCS: 73502; 99213 ==

== ENCOUNTER → 2022-07-03 15:00 | Outpatient (BNVA) | payer MEDICARE, MEDICAID, SELFPAY | PROVIDERS: PCP Family Medicine; Visit Provider Thoracic Surgery (Cardiothoracic Vascular Surgery) | DX: L89.620 Pressure ulcer of left heel, unstageable (principal); I96 Gangrene, not elsewhere classified | CPT/HCPCS: 87070; 87077; 87186 ==

== ENCOUNTER → 2022-07-09 15:00 | Outpatient (BNVA) | payer MEDICARE, MEDICAID, SELFPAY | PROVIDERS: PCP Family Medicine; Visit Provider Urology | DX: R33.9 Retention of urine, unspecified (principal); N47.2 Paraphimosis | CPT/HCPCS: 52000; 99203 ==

== ENCOUNTER 2022-09-14 15:40 | Emergency (ER) | payer MEDICARE, MEDICAID, SELFPAY ==
--- NOTE | 2022-09-14 15:46 | XRR_ITS ---
PROCEDURE INFORMATION: Exam: XR Left Hip Exam date and time: 09/14/2022 4:04 PM Age: 82 years old Clinical indication: Injury or trauma; Fall; Fracture of pelvis & hip; Left; Traumatic fracture; Neck of femur; Closed fracture TECHNIQUE: Imaging protocol: Radiologic exam of the left hip. Views: 2 or 3 views hip with pelvis when performed. COMPARISON: CR XR hip LT 2-3V wo/w pel* [id number] 06/20/2022 10:28 AM FINDINGS: Bones/joints: Subcapital impacted hip fracture function with approximately 1/4 shaft displacement Soft tissues: Unremarkable. XR/XR hip LT 2-3V wo/w pel* [id number] IMPRESSION: Subcapital impacted hip fracture function with approximately 1/4 shaft displacement
[2022-09-14 15:50] VITALS: BP 127/71; PULSE 79; RESP 14; TEMP 36.8; O2SAT 98; BMI 28.1
--- NOTE | 2022-09-14 15:57 | ED_ITS ---
HPI - Extremity Problem General: Chief complaint: Extremity Injury, Lower Stated complaint: LEFT HIP PAIN Time Seen by Provider: 09/14/22 15:46 Source: patient and EMS Mode of arrival: EMS Limitations: altered mental status History of Present Illness: 82-year-old male who had an unwitnessed fall yesterday at the long term he is complained of left hip pain today states pain is sharp in nature rates it a 6 out of 10. Patient is currently on hospice he broken his hip back in June and they decided to have no treatment at that time he is nonambulatory is actually unsure if he ever even had a fall. Patient is not really able to give much history he has no bruising here Review of Systems General: Reports: ROS unobtainable due to mental status PFSH ED PFSH: Medical History Aspiration pneumonia Chronic pulmonary aspiration Constipation COPD (chronic obstructive pulmonary disease) Dementia Diabetes mellitus, type II DNR (do not resuscitate) Fall -unclear etiology -telemetry monitoring -VSS; continue to monitor Left acetabular fracture -secondary to fall -imaging reviewed -fall precautions -Ortho consult by Dr. Leon appreciated; non-surgical management recommended, touchdown weight bearing on LLE, outpatient follow up -pain control as needed Perineal abscess Pneumonia due to COVID-19 virus Urinary retention Surgical History History of back surgery History of carpal tunnel release of both wrists History of neck surgery S/P excisional debridement Family History Mother , AT AGE 65 Cancer Father , IN HIS 90'S No problems noted. Denies family history of Anesthesia complication Bleeding disorder Social History Smoking and tobacco status: former smoker Alcohol intake: current Alcohol intake frequency: few times a month Substance/Drug Use: never Housing: Alf Marital status: Number of children: 2 Physical Exam Const: COMMON NORMALS: average body habitus; negative for patient oriented x3 HENMT: COMMON NORMALS: normocephalic and atraumatic HEAD & SCALP: normocephalic and atraumatic Eye: COMMON NORMALS: conjunctivae normal CONJUNCTIVA: Yes conjunctivae normal Neck/C-Spine: COMMON NORMALS: full ROM CERVICAL SPINE: No cervical ROM normal and No Cervical spine tenderness Chest: COMMONS NORMALS: normal inspection of the chest and normal palpation of entire chest wall Resp: COMMON NORMALS: normal respiratory effort Cardio: COMMON NORMALS: regular rate and regular rhythm RATE: regular rate RHYTHM: regular rhythm GI: COMMON NORMALS: Normal to inspection, nondistended, normoactive bowel sounds present and Soft to palpation PALPATION: Yes Soft to palpation Back/Pelvis: COMMON NORMALS: thoracic and lumbar spine normal to inspection THORACIC SPINE/UPPER BACK: Yes normal to inspection and No thoracic spinal tenderness LUMBAR SPINE/LOWER BACK: No lumbar spinal tenderness Extremity: NARRATIVE EXTREMITY EXAM: Tenderness to left hip Neuro: COMMON NORMALS: negative for patient oriented x3 Psych: COMMON NORMALS: cooperative; negative for mental status grossly normal Skin: COMMON NORMALS: no rashes or lesions noted GENERAL SKIN EXAM: no rashes or lesions noted Course Vital Signs: Vital signs: Vital Signs Temperature 98.3 F 09/14/22 15:50 Pulse Rate 79 09/14/22 15:50 Respiratory Rate 14 09/14/22 15:50 Blood Pressure 127/71 09/14/22 15:50 Pulse Oximetry 98 09/14/22 15:50 Oxygen Delivery Me thod Room Air 09/14/22 15:50 MDM - Extremity (Nontraumatic) Medical Decision Making Patient presents with left hip fracture is chronic in nature x-ray shows no new findings he has no signs of any other trauma I spoke to his guardian he is on hospice he does not want any treatment will discharge back to the long term Discharge Plan Discharge Patient Disposition: Home Clinical Impression: Hip fracture Condition: Stable Prescriptions: New hydrocodone-acetaminophen 5-325 mg tablet 1 tab PO Q6H PRN (Reason: pain) Qty: 14 0RF No Action bisacodyl 10 mg suppository 10 mg NM DAILY PRN (Reason: Constipation) Qty: 30 0RF Rx Instructions: give rectally if cant take po if no results from mom naloxone 0.4 mg/mL Solution See Rx Instructions .ROUTE .COMPLEX Rx Instructions: 0.4mg injection as needed in the deltoid or thigh may repeat every 3 to 5 minutes for 3 doses and call 911 if no response pantoprazole [Protonix] 20 mg Tablet,Delayed Release (Dr/Ec) 20 mg PO EVERY OTHER DAY alprazolam [Xanax] 0.5 mg Tablet 0.5 mg PO TID PRN (Reason: Anxiety) hydrocortisone 1 % Cream 1 applic topical DAILY PRN (Reason: Rash) Rx Instructions: apply to rash on back Fleet Enema 19-7 gram/118 mL Enema 118 ml NM DAILY PRN (Reason: Constipation) Rx Instructions: give if no results from mom and dulcolax if still no results notify pcp bisacodyl [Dulcolax (bisacodyl)] 5 mg Tablet,Delayed Release (Dr/Ec) 10 mg PO DAILY PRN (Reason: Constipation) Rx Instructions: give if no results from mom Biofreeze (menthol) 4 % Gel 1 applic TOPICAL BID PRN (Reason: Pain) Rx Instructions: apply to legs,arms and back magnesium hydroxide [Milk of Magnesia] 400 mg/5 mL suspension 30 ml PO .EVERY 72 HOURS PRN (Reason: Constipation) Rx Instructions: give if no bm in 3 days acetaminophen 650 mg Suppository 650 mg NM Q4H PRN (Reason: pain/fever) ipratropium-albuterol 0.5 mg-3 mg(2.5 mg base)/3 mL Solution For Nebulization 3 ml INHALATION Q4H PRN (Reason: Shortness Of Breath) Humalog U-100 Insulin 100 unit/mL solution See Rx Instructions .ROUTE .COMPLEX Rx Instructions: per sliding scale four times a day 150-200=3 units 201-250=5 units 251-300=7 units 301-350=9 units 351-400=11 units if bs is greater than 400 or if less than 70 [address] md ondansetron 4 mg Tablet,Disintegrating 4 mg PO Q8H PRN (Reason: Nausea And Vomiting) triamcinolone acetonide 0.1 % Ointment 1 applic TOPICAL BID Refresh Liquigel 1 % Drops, Liquid Gel 1 drp ophthalmic (eye) BID Glucagon (HCl) Emergency Kit 1 mg Recon Soln 1 mg SUBCUT Q20M PRN (Reason: low blood sugar) Rx Instructions: until target blood sugar attained aspirin 325 mg tablet 325 mg PO DAILY Qty: 30 0RF Lantus Solostar U-100 Insulin 100 unit/mL (3 mL) insulin pen 10 unit SUBCUT BEDTIME Qty: 15 0RF atorvastatin 10 mg tablet 10 mg PO DAILY Qty: 60 0RF cefpodoxime 200 mg tablet 200 mg PO BID Qty: 10 0RF Rx Instructions: must administer with a meal/food hydrocodone-acetaminophen 5-325 mg Tablet 1 tab PO Q6H PRN (Reason: Pain) Qty: 10 0RF Discharge Orders: Discharge ED (Routine); Ordered 09/14/22 Ordered By: Cody Graves Referrals: Nick Florian MD [Primary Care Provider] - Discharge Diet: Advance as tolerated Discharge Activity: Resume usual activity Patient Instructions: Hip Fracture (ED) Coding Level of Care Code ED Complaint Manager for Yasmeen Hartley
--- NOTE | 2022-09-14 16:06 | XRR_ITS ---
PROCEDURE INFORMATION: Exam: XR Chest Exam date and time: 09/14/2022 4:04 PM Age: 82 years old Clinical indication: Injury or trauma; Fall TECHNIQUE: Imaging protocol: Radiologic exam of the chest. Views: 1 view. COMPARISON: CT chest abdpel w/*[id number] 06/20/2022 9:35 AM FINDINGS: Lungs: Unremarkable. No consolidation. Pleural spaces: Unremarkable. No pleural effusion. No pneumothorax. Heart/Mediastinum: Unremarkable. No cardiomegaly. Bones/joints: Right humeral neck impacted fracture, similar compared to 06/20/2022 exam. XR/XR chest 1V portable [id number] IMPRESSION: Right humeral neck impacted fracture, similar compared to 06/20/2022 exam appears chronic.
--- NOTE | 2022-09-14 16:45 | PC.NURSE ---
ATTEMPTED TO CALL REPORT TO [facility] X 3 TIMES. UNABLE TO LEAVE MESSAGE NO ANSWER.
--- NOTE | 2022-09-14 17:34 | PC.NURSE ---
REPORT CALLED TO OSIRIS AT [facility].
--- NOTE | 2022-09-14 18:50 | PC.NURSE ---
REPORT GIVEN TO [facility].
[2022-09-14 19:10] VITALS: BP 145/81; RESP 16
== END 2022-09-14 19:13 | disposition home or self-care (01) ==
PROVIDERS: Emergency Provider Emergency Medicine; PCP Family Medicine
DX: S72.002D Fracture of unspecified part of neck of left femur, subsequent encounter for closed fracture with routine healing (principal); X58.XXXD Exposure to other specified factors, subsequent encounter
CPT/HCPCS: 71045; 73502; 99284